=== PATIENT | female | born 1970 | race African-American/Black ===

== ENCOUNTER 2016-08-21 18:04 | Inpatient (IN) | payer OTHER ==
[~2016-08-21] VITALS: Ht 171.4 cm; Wt 71.9 kg
[~2016-08-21 18:04] MED LIST: DOXY100C2 PO; DOXY100T PO; HYDR200T5 PO
[2016-08-21 20:10] VITALS: BP 139/86
[2016-08-21] MEDS ORDERED: MORPHINE SULFATE 2 MG/ML DISP.SYRIN. IV PRN (20:45)
[2016-08-21] MEDS ORDERED: MAG HYDROX/ALUMINUM HYD/SIMETH 30 ML ORAL.SUSP PO PRN (20:45)
[2016-08-21] MEDS ORDERED: LACTULOSE 20 GM/30 ML SOLUTION. PO PRN (20:45)
[2016-08-21] MEDS ORDERED: PROCHLORPERAZINE 25 MG SUPP.RECT. PR PRN (20:45)
[2016-08-21] MEDS ORDERED: IBUPROFEN 400 MG TABLET. PO PRN (20:45)
[2016-08-21] MEDS ORDERED: ONDANSETRON PF 4 MG/2 ML VIAL. IV PRN (20:45)
[2016-08-21] MEDS ORDERED: oxyCODONE IR 5 MG TABLET PO PRN (20:45)
[2016-08-21] MEDS ORDERED: BISACODYL 10 MG SUPP.RECT. PR PRN (20:45)
[2016-08-21] MEDS ORDERED: ACETAMINOPHEN 325 MG TABLET. PO PRN (20:45)
[2016-08-21] MEDS ORDERED: PROCHLORPERAZINE 10 MG/2 ML VIAL. IV PRN (20:45)
[2016-08-21] MEDS ORDERED: CALCIUM CARBONATE 500 MG TAB.CHEW PO PRN (20:45)
[2016-08-21] MEDS ORDERED: MAGNESIUM HYDROXIDE 2,400 MG/30 ML ORAL.SUSP. PO PRN (20:45)
[2016-08-21] MEDS: DOCUSATE SODIUM 100 MG CAPSULE. PO SCH (21:00)
--- NOTE | 2016-08-21 21:06 | PDOC1 ---
History and Physical Date of Admission Date of Admission DATE: 08/21/16 TIME: 20:56 Identification/Chief Complaint Chief Complaint SOA, leg swelling Problems: Source Source: Caregiver, Chart review, Patient History of Present Illness History of Present Illness 46 y.o AA female O 2 dependent 31/08 at 2 [facility], for ILD, lupus hx was on plaquenil for it not taking anymore (lupus has affected the lungs); known to our pulmo service, has noticed more SOA, needing to bump O2 to 3 L NC, leg swelling,. pitting edema, no CP, orthopnea or PND. HAs noticed more phlegm in amt, though no signif change in color. Never smoker Went to ER [facility], CXR shows pulmo congestion, elevated BNP. CHF new dx. No known CAD, no signif meds at home. Cards called from [facility], requested [facility]C transfer and pulmo on board,. Pt on the potty, good UO after 60mgs iV lasix x 1 at [place] BNP 2845, Trop 0.020 Past Medical History Pulmonary: Asthma, Bronchitis, Pneumonia Past Surgical History Past Surgical History: Other Family History Family History: Diabetes, Heart Disease, High Cholestrol, Hypertension Social History Smoke: No ALCOHOL: none Drugs: None Current Medications Current Medications Current Medications Ondansetron HCl (Zofran) 4 mg PRN Q6HRS PRN IV NAUSEA/VOMITING; Start 08/21/16 at 20:45 Prochlorperazine Edisylate (Compazine) 10 mg PRN Q6HRS PRN IV NAUSEA/VOMITING; Start 08/21/16 at 20:45 Prochlorperazine (Compazine) 25 mg PRN Q12HR PRN RI NAUSEA/VOMITING; Start at 20:45 Al Hydroxide/Mg Hydroxide (Mylanta Plus Xs) 30 ml PRN Q3HRS PRN PO HEARTBURN / GAS; Start 08/21/16 at 20:45 Calcium Carbonate/ Glycine (Tums) 500 mg PRN Q3HRS PRN PO UPSET STOMACH; Start 08/21/16 at 20:45 Oxycodone HCl (Roxicodone) 5 mg PRN Q3HRS PRN PO BREAKTHROUGH PAIN; Start 08/21 at 20:45 Morphine Sulfate 1 mg PRN Q1HR PRN IV PAIN; Start 08/21/16 at 20:45 Acetaminophen (Tylenol) 650 mg PRN Q6HRS PRN PO Headaches, Temp > 101.5F; Start 08/21/16 at 20:45 Ibuprofen (Motrin) 400 mg PRN Q6HRS PRN PO MILD PAIN; Start 08/21/16 at 20:45 Docusate Sodium (Colace) 100 mg BID PO ; Start 08/21/16 at 21:00 Magnesium Hydroxide (Milk Of Magnesia) 2,400 mg PRN Q12HR PRN PO CONSTIPATION; Start 08/21/16 at 20:45 Lactulose 20 gm PRN Q12HR PRN PO CONSTIPATION; Start 08/21/16 at 20:45 Bisacodyl (Dulcolax Supp) 10 mg PRN DAILY PRN RI CONSTIPATION; Start 08/21/16 at 20:45 Enoxaparin Sodium (Lovenox 40mg Syringe) 40 mg Q24H SQ ; Start 08/21/16 at 21:00 Albuterol/ Ipratropium (Duoneb) 3 ml RTQID NEB ; Start 08/21/16 at 21:00 Hydroxychloroquine Sulfate (Plaquenil) 200 mg BID PO ; Start 08/21/16 at 21:00 Active Scripts Active Hydroxychloroquine Sulfate 200 Mg Tablet 200 Mg PO BID 30 Days Doxycycline Hyclate 100 Mg Tablet 100 Mg PO BID Doxycycline Hyclate 100 Mg Capsule 1 Cap PO BID Allergies Allergies: Coded Allergies: No Known Drug Allergies (Unverified , 11/04/15) ROS General: No: Chills, Night Sweats, Fatigue, Malaise, Appetite, Other PSYCHOLOGICAL ROS: No: Anxiety, Behavioral Disorder, Concentration difficultie , Decreased libido, Depression, Disorientation, Hallucinations, Hostility, Irritablity, Memory difficulties, Mood Swings, Obsessive thoughts, Physical abuse, Sexual abuse, Sleep disturbances, Suicidal ideation, Other Eyes: No Blurry vision, No Decreased vision, No Double vision, No Dry eyes, No Excessive tearing, No Eye Pain, No Itchy Eyes, No Loss of vision, No Photophobia , No Scotomata, No Uses contacts, No Uses glasses, No Other HEENT: No: Heacaches, Visual Changes, Hearing change, Nasal congestion, Nasal discharge, Oral lesions, Sinus pain, Sore Throat, Epistaxis, Sneezing, Snoring, Tinnitus, Vertigo, Vocal changes, Other ALLERGY AND IMMUNOLOGY: No: Hives, Insect Bite Sensitivity, Itchy/Watery Eyes, Nasal Congestion, Post Nasal Drip, Seasonal Allergies, Other Hematological and Lymphatic: No: Bleeding Problems, Blood Clots, Blood Transfusions, Brusing, Night Sweats, Pallor, Swollen Lymph Nodes, Other ENDOCRINE: No: Breast Changes, Galactorrhea, Hair Pattern Changes, Hot Flashes , Malaise/lethargy, Mood Swings, Palpitations, Polydipsia/polyuria, Skin Changes , Temperature Intolerance, Unexpected Weight Changes, Other Breast: No New/Changing Breast Lumps, No Nipple changes, No Nipple discharge, No Other Respiratory: YES: Shortness of breath, SOB with excertion, Sputum Changes, Other (more sputum amt but no color) Cardiovascular: No Chest Pain, No Palpitations, No Orthopnea, No Paroxysmal Noc. Dyspnea, No Edema, No Lt Headedness, No Other Gastrointestinal: No Nausea, No Vomiting, No Abdominal Pain, No Diarrhea, No Constipation, No Melena, No Hematochezia, No Other Genitourinary: No Dysuria, No Frequency, No Incontinence, No Hematuria, No Retention, No Discharge, No Urgency, No Pain, No Flank Pain, No Other, No , No , No , No , No , No , No Musculoskeletal: No Gait Disturbance, No Joint Pain, No Joint Stiffness, No Joint Swelling, No Muscle Pain, No Muscular Weakness, No Pain In:, No Swelling In:, No Other Neurological: No Behavorial Changes, No Bowel/Bladder ControlChng, No Confusion , No Dizziness, No Gait Disturbance, No Headaches, No Impaired Coord/balance, No Memory Loss, No Numbness/Tingling, No Seizures, No Speech Problems, No Tremors, No Visual Changes, No Weakness, No Other Skin: No Dry Skin, No Eczema, No Hair Changes, No Lumps, No Mole Changes, No Mottling, No Nail Changes, No Pruritus, No Rash, No Skin Lesion Changes, No Other, No Acne Physical Exam General: Alert, Oriented X3, Cooperative, No acute distress HEENT: Atraumatic, PERRLA Lungs: Normal air movement, Other (dec BS bases, no wheezes, dullness to percussion bases aaliyah) Heart: S1S2, RRR, no thrills, no rubs, no gallops, no murmurs Cardiovascular: S1, S2 Breasts: Normal, Rt breast nml w/o mass, Lt breast nml w/o mass, Nipples normal Abdomen: Normal bowel sounds, Soft, No tenderness, No hepatosplenomegaly, No masses Rectal Exam: not examined PELVIC: Nml ext genitalia Extremities: No clubbing, No cyanosis, Normal pulses, No tenderness/swelling ( plus 3 pitting edema bilateral LE), Other Skin: No rashes, No breakdown, No significant lesion Neuro: Normal gait, Normal speech, Strength at 5/5 X4 ext, Normal tone, Sensation intact, Cranial nerves 3-12 NL, Reflexes 2+ Psych/Mental Status: Mental status NL, Mood NL Vitals Vitals Vital Signs Date Time Temp Pulse Resp B/P (MAP) Pulse Ox O2 Delivery O2 Flow Rate FiO2 08/21/16 20:10 98.2 98 20 139/86 (103) 96 Nasal Cannula 2.0 98.2 VTE Prophylaxis Ordered VTE Prophylaxis Devices: Yes VTE Pharmacological Prophylaxi: Yes Assessment/Plan Assessment/Plan 1. New onset CHF possibly NYHA class II 2. Bilateral LE edema 3. Hx ILD, hypoxic respi failure acute on chronic, O2 dependent 4. Hx lupus lungs - off plaquenil 5. Trop leak 0.020 PLAN: Admit CVC CARds consult Diurese Demetrio lytodd as we diurese Interval CXR wednesday Likely will need echo PT/OT Pulmo consult per cards request O2 support Supportive meds Seen at 248, discussed plan of care with pt, all q's answered to her content MADDIE RESENDEZ MD Aug 21, 2016 21:06
[2016-08-21] MEDS: HYDROXYCHLOROQUINE 200 MG TABLET PO SCH (21:28)
[2016-08-21] MEDS: ENOXAPARIN 40 MG/0.4 ML SYRINGE. SQ SCH (21:29)
[2016-08-21] MEDS: IPRATRPIUM/ALBUTEROL 0.5/2.5MG 3 ML NEBU. NEB SCH (21:41)
[2016-08-21 23:50] VITALS: BP 85/56
[2016-08-22 03:31] VITALS: BP 85/59
--- NOTE | 2016-08-22 03:49 | ACF ---
Admission Forms Criteria HEART FAILURE (Place 'X' for any and all applicable criteria): Admission to inpatient status for two midnights or more is indicated by ANY ONE of the following(1)(2)(3)(4) [ ]I. Hemodynamic instability [ ]II. Severe electrolyte abnormalities requiring inpatient care(9) [ ]III. Cardiac arrhythmias of immediate concern Anasarca [ ]IV. Precipitating cause for acute decompensation (eg, pneumonia, pulmonary embolism)[ ]V. [ ]V. Acute cardiac ischemia causing or associated with failure (Also use Angina or Myocardial Infarction as appropriate) [ ]. Pulmonary edema that is very severe (eg, mechanical ventilation needed, imminent or likely, need for 100% oxygen to keep oxygen saturation above 90%) [ ]VII. Massive skin edema (anasarca) with complications (eg tissue breakdown with infection, inability to void due to edema) [A] [X]VIII. Inpatient admission required rather than observation care (See Heart Failure: Observation Care as appropriate) because of 1 or more of the following: [ ]a) Pulmonary edema that is severe or worsening as indicated by ALL of the following : [ ]1) New need for oxygen therapy to keep oxygen saturation above 90% (or increased FiO2 need from baseline) [ ]2) Has not improved sufficiently with emergency department or observation care IV diuretics or other heart failure treatments[C] [ ]b) Altered mental status that is severe or persistent [ ]c) Increased creatinine (new on laboratory test) with reduction of more than 50% in estimated glomerular filtration rate from baseline. [ ]d) Progressively (ongoing) rising creatinine (known from past laboratory test) with reduction of more than 25% in estimated glomerular filtration rate from baseline [ ]e) Acute renal insufficiency (progressively (ongoing) rising creatinine (known from past laboratory test) with reduction of more than 25% in estimated glomerular filtration rate from baseline [ ]f) Acute renal failure [ ]g) Acute peripheral ischemia (e.g., examination shows pulseless, cool, mottled, or cyanotic extremity) [X]h) Oyxgen administration or respiratory treatments have been needed for over 24 hours that are performable only in acute inpatient setting [ ]i) Pulmonary artery catheter monitoring [ ]j) Other condition, treatment or monitoring requiring inpatient admission Extended stay beyond goal length of stay may be needed for(1)(3)(21)(25): [ ]a) Cardiac ischemia, confirmed or suspected as precipitant [ ]b) Cardiogenic shock [ ]c) Acute renal failure [ ]d) Stage IV chronic kidney disease (estimated glomerular filteration rate of less than 30 ML/min/1.73m2 (0.50 mL/sec/1.73m2), and not previously on chronic dialysis [ ]e) Respiratory failure (eg, need for noninvasive or invasive mechanical ventilation) (23) [ ]f) Concomitant pneumonia or significant electrolyte abnormality (eg, severe hyponatremia) [ ]g) Newly diagnosed (new onset) atrial fibrillation The original [facility] content created by [employer] has been revised. The portions of the content which have been revised are identified through the use of italic text, and [facility] has neither reviewed nor approved the modified material. All other unmodified content is copyright [facility]. Please see references footnoted in the original [facility] edition 2014 Admission Criteria Met?: Yes ROXANN ORTIZ Aug 22, 2016 03:49
[2016-08-22 03:58] LABS: BASO # 0.1 x10^3/uL (0.0-0.2); BASO % 1 % (0-3); EOS % 2 % (0-3); HEMATOCRIT 33.5 % (36.0-47.0); HEMOGLOBIN 10.3 g/dL (12.0-15.5); LYMPH # 1.1 x10^3/uL (1.0-4.8); LYMPH % 16 % (24-48); MEAN CORPUSCULAR HEMOGLOBIN 23 pg (25-35); MEAN CORPUSCULAR HGB CONC 31 g/dL (31-37); MEAN CORPUSCULAR VOLUME 74 fL (79-100); MONO % 11 % (0-9); NEUT % 70 % (31-73); PLATELET COUNT 208 x10^3/uL (140-400); RED BLOOD COUNT 4.51 x10^6/uL (3.50-5.40); RED CELL DISTRIBUTION WIDTH 19.2 % (11.5-14.5); WHITE BLOOD COUNT 6.8 x10^3/uL (4.0-11.0)
[2016-08-22 04:03] LABS: INR 1.3 (0.8-1.1); PROTHROMBIN TIME PATIENT 15.6 SEC (11.7-14.0)
[2016-08-22 04:13] LABS: CALCIUM 8.4 mg/dL (8.5-10.1); CREATININE 0.5 mg/dL (0.6-1.0); GFR 162.2
[2016-08-22 04:19] LABS: PHOSPHORUS 4.3 mg/dL (2.6-4.7)
[2016-08-22 06:04] LABS: ANISOCYTOSIS SLIGHT; HYPOCHROMIA MOD; PLT ESTIMATE ADEQUATE (ADEQUATE)
[2016-08-22 06:05] LABS: MICROCYTOSIS SLIGHT
[2016-08-22 07:00] VITALS: BP 108/70
[2016-08-22] MEDS: IPRATRPIUM/ALBUTEROL 0.5/2.5MG 3 ML NEBU. NEB SCH ×4 (07:40→20:12)
[2016-08-22] MEDS ORDERED: FUROSEMIDE 40 MG/4 ML VIAL. IVP SCH (09:00)
[2016-08-22] MEDS: DOCUSATE SODIUM 100 MG CAPSULE. PO SCH ×2 (09:00→21:00)
[2016-08-22] MEDS: HYDROXYCHLOROQUINE 200 MG TABLET PO SCH ×2 (09:09→21:24)
--- NOTE | 2016-08-22 10:27 | PDOC2 ---
CARDIAC CONSULT DATE OF CONSULT Date of Consult DATE: 08/22/16 TIME: 10:18 REASON FOR CONSULT Reason for Consult: new CHF REFERRING PHYSICIAN Referring Physician: Kirk SOURCE Source: Chart review, Patient HISTORY OF PRESENT ILLNESS HISTORY OF PRESENT ILLNESS This is a pleasant 46 yo female admitted for complains of increasing leg swelling and SOA. Reports leg swelling to both legs increasing in the last 2 weeks. Her SOA starting get more progressive in the last week and in the last 2 -3 days she has been even more SOA and verbalized that she has increased her O2 supplementation need. Denies any CP, palpitations, nausea or vomiting. She has some foot pain but denies any leg pain. She drinks about 2 L of fluids daily, no routine NSAID use, and she watches her salt intake. Denies any CAD, VTE, falls, or any recent injury. Denies any bleeding or clotting hx. Reports of SLE and chronic lung disease. The only medications she takes is plaquenil and inhalers. PAST MEDICAL HISTORY Cardiovascular: Other (Raynauds) Pulmonary: Asthma, Other (bronchiectasis; O2 supplement use) CENTRAL NERVOUS SYSTEM: Other (No pertinent history) GI: No pertinent hx Heme/Onc: Anemia NOS Hepatobiliary: No pertinent hx Psych: No pertinent hx Musculoskeletal: Osteoarthritis, Other (leg edema) Rheumatologic: Other (SLE) Infectious disease: No pertinent hx ENT: No pertinent hx Renal/: No pertinent hx Endocrine: No pertinent hx Dermatology: No pertinent hx PAST SURGICAL HISTORY Past Surgical History: No pertinent history FAMILY HISTORY Family History noncontributory to CV SOCIAL HISTORY Smoke: No ALCOHOL: none Drugs: None Lives: with Family CURRENT MEDICATIONS CURRENT MEDICATIONS Current Medications Medications (Trade) Dose Ordered Sig/Chepe Route PRN Reason Start Time Stop Time Status Last Admin Dose Admin Enoxaparin Sodium (Lovenox 40mg Syringe) 40 mg Q24H SQ 08/21/16 21:00 08/21/16 21:29 Albuterol/ Ipratropium (Duoneb) 3 ml RTQID NEB 08/21/16 21:00 08/22/16 07:40 Hydroxychloroquine Sulfate (Plaquenil) 200 mg BID PO 08/21/16 21:00 08/22/16 09:09 Furosemide (Lasix) 40 mg DAILY IVP 08/22/16 09:00 08/22/16 09:09 ALLERGIES ALLERGIES: Coded Allergies: No Known Drug Allergies (Unverified , 11/04/15) ROS Review of System 14 point ROS evaluated with pertinent positives noted per HPI PHYSICAL EXAM General: Alert, Oriented X3, Cooperative, No acute distress HEENT: Atraumatic, Mucous membr. moist/pink Lungs: Other (basilar crackles) Heart: Regular rate (SR), Normal S1, Normal S2, Other (S4; systolic murmur loudest at [place] border) Abdomen: Soft, No tenderness Extremities: No cyanosis, Other (3+ bilateral LE pitting edema) Skin: No breakdown, No significant lesion Neuro: Normal speech, Sensation intact Psych/Mental Status: Mood NL MUSCULOSKELETAL: Osteoarthritic changes both hands VITALS VITALS Vital Signs Date Time Temp Pulse Resp B/P (MAP) Pulse Ox O2 Delivery O2 Flow Rate FiO2 08/22/16 07:41 95 Nasal Cannula 2.0 08/22/16 07:00 98.3 92 20 108/70 (83) 98.3 LABS Lab: Laboratory Tests Test 08/22/16 03:05 08/22/16 08:45 White Blood Count 6.8 x10^3/uL (4.0-11.0) Red Blood Count 4.51 x10^6/uL (3.50-5.40) Hemoglobin 10.3 g/dL (12.0-15.5) Hematocrit 33.5 % (36.0-47.0) Mean Corpuscular Volume 74 fL (79-100) Mean Corpuscular Hemoglobin 23 pg (25-35) Mean Corpuscular Hemoglobin Concent 31 g/dL (31-37) Red Cell Distribution Width 19.2 % (11.5-14.5) Platelet Count 208 x10^3/uL (140-400) Neutrophils (%) (Auto) 70 % (31-73) Lymphocytes (%) (Auto) 16 % (24-48) Monocytes (%) (Auto) 11 % (0-9) Eosinophils (%) (Auto) 2 % (0-3) Basophils (%) (Auto) 1 % (0-3) Neutrophils # (Auto) 4.7 x10^3uL (1.8-7.7) Lymphocytes # (Auto) 1.1 x10^3/uL (1.0-4.8) Monocytes # (Auto) 0.8 x10^3/uL (0.0-1.1) Eosinophils # (Auto) 0.1 x10^3/uL (0.0-0.7) Basophils # (Auto) 0.1 x10^3/uL (0.0-0.2) Platelet Estimate Adequate (ADEQUATE) Hypochromasia Mod Anisocytosis Slight Microcytosis Slight Prothrombin Time 15.6 SEC (11.7-14.0) Prothromb Time International Ratio 1.3 (0.8-1.1) Sodium Level 143 mmol/L (136-145) Potassium Level 4.0 mmol/L (3.5-5.1) Chloride Level 103 mmol/L (98-107) Carbon Dioxide Level 40 mmol/L (21-32) Anion Gap 0 (6-14) Blood Urea Nitrogen 10 mg/dL (7-20) Creatinine 0.5 mg/dL (0.6-1.0) Estimated GFR (Cockcroft-Gault) 162.2 Glucose Level 100 mg/dL (70-99) Calcium Level 8.4 mg/dL (8.5-10.1) Phosphorus Level 4.3 mg/dL (2.6-4.7) Magnesium Level 2.0 mg/dL (1.8-2.4) Troponin I Quantitative 0.056 ng/mL (0.000-0.055) 0.029 ng/mL (0.000-0.055) Thyroid Stimulating Hormone (TSH) 3.086 uIU/mL (0.358-3.74) ASSESSMENT/PLAN ASSESSMENT/PLAN 1. Acute CHF with likely diastolic dysfunction: COr pulmonale? notable for hypercoagulable state. EKG SR, RVH/PADMA, S1Q3T3. PE workup? defer to Pulmonary. 2. COPD/bronchiectasis: likely exacerbation. chronic O2 use. Follow by outpt pulmonary 3. SLE/Raynauds: followed by outpt model technician 4. Valvular insufficiency: loud murmur Recommendations 1. pro NT BNP, lipid panel, Venoud LE doppler/TTE today 2. 3 L of UOP today. Will hold lasix for now. Await TTE 3. Pulmonary consult pending. Problems: NICOLÁS SILVER APRN Aug 22, 2016 10:27
[2016-08-22 10:53] LABS: CHOLESTEROL/HDL RATIO 3.3
[2016-08-22 11:00] VITALS: BP 113/80
--- NOTE | 2016-08-22 12:51 | PDOC2 ---
CONSULT Date of Consult Date of Consult DATE: 08/22/16 TIME: 12:40 Reason for Consult Reason for Consult: abnormal CXR Referring Physician Referring Physician: Dr Walsh Identification/Chief Complaint Chief Complaint dyspnea Problems: History of Present Illness Reason for Visit: This is a pleasant 46 yo female admitted for complains of increasing leg swelling and SOA. Reports leg swelling to both legs increasing in the last 2 weeks, abdominal swelling as well. Her SOA starting get more progressive in the last week and in the last 2-3 days she has been even more SOA and verbalized that she has increased her O2 supplementation need. Denies any CP, palpitations , nausea or vomiting. She has some foot pain but denies any leg pain. She drinks about 2 L of fluids daily, no routine NSAID use, and she watches her salt intake. Denies any CAD, VTE, falls, or any recent injury. Denies any bleeding or clotting hx. Reports of SLE and chronic lung disease. The only medications she takes is plaquenil and inhalers. Patient was diagnosed with lupus in 2007. She has taken Vicodin in the past. Says that she developed pneumonia in 2011 and her lung condition is started since that time. She has no history of tobacco use. She has no history of DVT or pulmonary embolism. She was seen in emergency room and a chest x-ray shows diffuse bilateral interstitial infiltrates. There was also Donavan Ramon. I have reviewed her CT chest from last year. She had evidence of ground glass and interstitial infiltrates along with nodular infiltrates. These findings were not typical of idiopathic pulmonary fibrosis. They consultation is requested for further evaluation. Past Medical History Cardiovascular: No pertinent hx, Other (Raynauds) Pulmonary: Asthma, Other (ILD) CENTRAL NERVOUS SYSTEM: Other (No pertinent history) GI: No pertinent hx Heme/Onc: Anemia NOS Hepatobiliary: No pertinent hx Psych: No pertinent hx Musculoskeletal: Osteoarthritis, Other (leg edema) Rheumatologic: Other (SLE) Infectious disease: No pertinent hx ENT: No pertinent hx Renal/: No pertinent hx Endocrine: No pertinent hx Dermatology: No pertinent hx Past Surgical History Past Surgical History: No pertinent history Family History Family History: Diabetes, Heart Disease, High Cholestrol, Hypertension Social History No ALCOHOL: none Drugs: None Lives: with Family Current Medications Current Medications Current Medications Ondansetron HCl (Zofran) 4 mg PRN Q6HRS PRN IV NAUSEA/VOMITING 1ST CHOICE; Start 08/21/16 at 20:45 Prochlorperazine Edisylate (Compazine) 10 mg PRN Q6HRS PRN IV NAUSEA/VOMITING 2ND CHOIC; Start 08/21/16 at 20:45 Prochlorperazine (Compazine) 25 mg PRN Q12HR PRN [place] NAUSEA/VOMITING; Start at 20:45 Al Hydroxide/Mg Hydroxide (Mylanta Plus Xs) 30 ml PRN Q3HRS PRN PO HEARTBURN / GAS; Start 08/21/16 at 20:45 Calcium Carbonate/ Glycine (Tums) 500 mg PRN Q3HRS PRN PO UPSET STOMACH; Start 08/21/16 at 20:45 Oxycodone HCl (Roxicodone) 5 mg PRN Q3HRS PRN PO BREAKTHROUGH PAIN; Start 08/21 at 20:45 Morphine Sulfate 1 mg PRN Q1HR PRN IV PAIN; Start 08/21/16 at 20:45 Acetaminophen (Tylenol) 650 mg PRN Q6HRS PRN PO Headaches, Temp > 101.5F; Start 08/21/16 at 20:45 Ibuprofen (Motrin) 400 mg PRN Q6HRS PRN PO MILD PAIN; Start 08/21/16 at 20:45; Stop 08/22/16 at 10:51; Status DC Docusate Sodium (Colace) 100 mg BID PO ; Start 08/21/16 at 21:00 Magnesium Hydroxide (Milk Of Magnesia) 2,400 mg PRN Q12HR PRN PO CONSTIPATION; Start 08/21/16 at 20:45 Lactulose 20 gm PRN Q12HR PRN PO CONSTIPATION; Start 08/21/16 at 20:45 Bisacodyl (Dulcolax Supp) 10 mg PRN DAILY PRN [place] CONSTIPATION; Start 08/21/16 at 20:45 Enoxaparin Sodium (Lovenox 40mg Syringe) 40 mg Q24H SQ Last administered on t 21:29; Start 08/21/16 at 21:00 Albuterol/ Ipratropium (Duoneb) 3 ml RTQID NEB Last administered on 08/22/16 11:37; Start 08/21/16 at 21:00 Hydroxychloroquine Sulfate (Plaquenil) 200 mg BID PO Last administered on 09:09; Start 08/21/16 at 21:00 Furosemide (Lasix) 40 mg DAILY IVP Last administered on 08/22/16 09:09; Start 08/22/16 at 09:00; Stop 08/22/16 at 11:56; Status DC Active Scripts Active Hydroxychloroquine Sulfate 200 Mg Tablet 200 Mg PO BID 30 Days Doxycycline Hyclate 100 Mg Tablet 100 Mg PO BID Doxycycline Hyclate 100 Mg Capsule 1 Cap PO BID Allergies Allergies: Coded Allergies: No Known Drug Allergies (Unverified , 11/04/15) ROS Review of System as discussed in my history of present illness otherwise noncontributory. Physical Exam General: Alert, No acute distress HEENT: Atraumatic Lungs: Other (crackles bases) Heart: Normal S1 Abdomen: Normal bowel sounds Extremities: No clubbing, Other (2+ edema) Skin: No rashes Neuro: Normal gait Psych/Mental Status: Mental status NL Vitals VITALS Vital Signs Date Time Temp Pulse Resp B/P (MAP) Pulse Ox O2 Delivery O2 Flow Rate FiO2 08/22/16 11:38 95 Nasal Cannula 2.0 08/22/16 11:00 97.4 94 18 113/80 (91) 97.4 Labs Labs Laboratory Tests Test 08/22/16 03:05 08/22/16 08:45 White Blood Count 6.8 x10^3/uL (4.0-11.0) Red Blood Count 4.51 x10^6/uL (3.50-5.40) Hemoglobin 10.3 g/dL (12.0-15.5) Hematocrit 33.5 % (36.0-47.0) Mean Corpuscular Volume 74 fL (79-100) Mean Corpuscular Hemoglobin 23 pg (25-35) Mean Corpuscular Hemoglobin Concent 31 g/dL (31-37) Red Cell Distribution Width 19.2 % (11.5-14.5) Platelet Count 208 x10^3/uL (140-400) Neutrophils (%) (Auto) 70 % (31-73) Lymphocytes (%) (Auto) 16 % (24-48) Monocytes (%) (Auto) 11 % (0-9) Eosinophils (%) (Auto) 2 % (0-3) Basophils (%) (Auto) 1 % (0-3) Neutrophils # (Auto) 4.7 x10^3uL (1.8-7.7) Lymphocytes # (Auto) 1.1 x10^3/uL (1.0-4.8) Monocytes # (Auto) 0.8 x10^3/uL (0.0-1.1) Eosinophils # (Auto) 0.1 x10^3/uL (0.0-0.7) Basophils # (Auto) 0.1 x10^3/uL (0.0-0.2) Platelet Estimate Adequate (ADEQUATE) Hypochromasia Mod Anisocytosis Slight Microcytosis Slight Prothrombin Time 15.6 SEC (11.7-14.0) Prothromb Time International Ratio 1.3 (0.8-1.1) Sodium Level 143 mmol/L (136-145) Potassium Level 4.0 mmol/L (3.5-5.1) Chloride Level 103 mmol/L (98-107) Carbon Dioxide Level 40 mmol/L (21-32) Anion Gap 0 (6-14) Blood Urea Nitrogen 10 mg/dL (7-20) Creatinine 0.5 mg/dL (0.6-1.0) Estimated GFR (Cockcroft-Gault) 162.2 Glucose Level 100 mg/dL (70-99) Calcium Level 8.4 mg/dL (8.5-10.1) Phosphorus Level 4.3 mg/dL (2.6-4.7) Magnesium Level 2.0 mg/dL (1.8-2.4) Troponin I Quantitative 0.056 ng/mL (0.000-0.055) 0.029 ng/mL (0.000-0.055) Triglycerides Level 58 mg/dL (0-150) Cholesterol Level 95 mg/dL (0-200) LDL Cholesterol, Calculated 54 mg/dL (0-100) VLDL Cholesterol, Calculated 12 mg/dL (0-40) Non-HDL Cholesterol Calculated 66 mg/dL (0-129) HDL Cholesterol 29 mg/dL (40-60) Cholesterol/HDL Ratio 3.3 Thyroid Stimulating Hormone (TSH) 3.086 uIU/mL (0.358-3.74) Creatine Kinase 298 U/L (26-192) PI-Iod-L-Type Natriuretic Peptide 3848 pg/mL (0-124) Laboratory Tests Test 08/22/16 03:05 08/22/16 08:45 White Blood Count 6.8 x10^3/uL (4.0-11.0) Red Blood Count 4.51 x10^6/uL (3.50-5.40) Hemoglobin 10.3 g/dL (12.0-15.5) Hematocrit 33.5 % (36.0-47.0) Mean Corpuscular Volume 74 fL (79-100) Mean Corpuscular Hemoglobin 23 pg (25-35) Mean Corpuscular Hemoglobin Concent 31 g/dL (31-37) Red Cell Distribution Width 19.2 % (11.5-14.5) Platelet Count 208 x10^3/uL (140-400) Neutrophils (%) (Auto) 70 % (31-73) Lymphocytes (%) (Auto) 16 % (24-48) Monocytes (%) (Auto) 11 % (0-9) Eosinophils (%) (Auto) 2 % (0-3) Basophils (%) (Auto) 1 % (0-3) Neutrophils # (Auto) 4.7 x10^3uL (1.8-7.7) Lymphocytes # (Auto) 1.1 x10^3/uL (1.0-4.8) Monocytes # (Auto) 0.8 x10^3/uL (0.0-1.1) Eosinophils # (Auto) 0.1 x10^3/uL (0.0-0.7) Basophils # (Auto) 0.1 x10^3/uL (0.0-0.2) Platelet Estimate Adequate (ADEQUATE) Hypochromasia Mod Anisocytosis Slight Microcytosis Slight Prothrombin Time 15.6 SEC (11.7-14.0) Prothromb Time International Ratio 1.3 (0.8-1.1) Sodium Level 143 mmol/L (136-145) Potassium Level 4.0 mmol/L (3.5-5.1) Chloride Level 103 mmol/L (98-107) Carbon Dioxide Level 40 mmol/L (21-32) Anion Gap 0 (6-14) Blood Urea Nitrogen 10 mg/dL (7-20) Creatinine 0.5 mg/dL (0.6-1.0) Estimated GFR (Cockcroft-Gault) 162.2 Glucose Level 100 mg/dL (70-99) Calcium Level 8.4 mg/dL (8.5-10.1) Phosphorus Level 4.3 mg/dL (2.6-4.7) Magnesium Level 2.0 mg/dL (1.8-2.4) Troponin I Quantitative 0.056 ng/mL (0.000-0.055) 0.029 ng/mL (0.000-0.055) Triglycerides Level 58 mg/dL (0-150) Cholesterol Level 95 mg/dL (0-200) LDL Cholesterol, Calculated 54 mg/dL (0-100) VLDL Cholesterol, Calculated 12 mg/dL (0-40) Non-HDL Cholesterol Calculated 66 mg/dL (0-129) HDL Cholesterol 29 mg/dL (40-60) Cholesterol/HDL Ratio 3.3 Thyroid Stimulating Hormone (TSH) 3.086 uIU/mL (0.358-3.74) Creatine Kinase 298 U/L (26-192) OO-Sqo-I-Type Natriuretic Peptide 3848 pg/mL (0-124) Images Images Reviewed and is consistent with bilateral interstitial infiltrates. Assessment/Plan Assessment/Plan Impression 1. Progressive dyspnea and hypoxic respiratory failure in a patient who has a diagnosis of interstitial lung disease now comes in with severe leg edema , abdominal wall edema and bilateral interstitial infiltrates. Suspect that we may be dealing with progression of interstitial lung disease and acute right heart failure. 2. Abnormal chest x-ray with bilateral interstitial infiltrates. she had a CAT scan last year which showed bilateral interstitial and ground-glass infiltrates and also nodular infiltrates. This could be related to lupus interstitial lung disease however the possibility of sarcoidosis cannot be ruled out. The CT chest findings is not typical of idiopathic type pulmonary fibrosis. 3. Clinically less likely left heart failure but will await echo findings. 4. Bilateral lower extremity edema suspect related to acute right heart failure. Her lower extremity dopplers have been ordered and preliminary results do not show any significant DVT. 5. No significant history of tobacco use. Recommendations 1. We'll obtain noncontrast CT chest and compare with previous CAT scan to assess for any progression of interstitial lung disease. 2. If there are any significant ground-glass infiltrates then these may predict response to steroids and we may consider an empiric trial of oral steroids 3. Hold off further diuresis until CAT scan is available 4. PFTs as an outpatient 5. Obtain report of lower extremity venous Dopplers. 6. Obtain echocardiogram to assess for left ventricular function as well as to rule out diastolic dysfunction and assess for pulmonary hypertension. 7. Status d/w with cardiology and nurse. BRYAN HALL MD Aug 22, 2016 12:51
--- NOTE | 2016-08-22 14:25 | PDOC ---
PROGRESS NOTES Chief Complaint Chief Complaint 1. dyspnea, acute on chronic hypoxic resp failure 2/2 acute likey diastolic CHF and chronic ILD 2. Bilateral LE edema with chf likely 3. Hx ILD, hypoxic respi failure acute on chronic, O2 dependent 4. Hx lupus lungs - off plaquenil 5. Trop leak 0.020 PLAN: fu with card and pul echo, leg US, chest CT pending hold lasix for now duoneb cont plaquinil dvt ppx History of Present Illness History of Present Illness sob and bl leg edema slightly better home o2 2l Vitals Vitals Vital Signs Date Time Temp Pulse Resp B/P (MAP) Pulse Ox O2 Delivery O2 Flow Rate FiO2 08/22/16 11:38 95 Nasal Cannula 2.0 08/22/16 11:00 97.4 94 18 113/80 (91) 97.4 Physical Exam General: Alert, No acute distress Heart: Normal S1 Lungs: Crackles Abdomen: Normal bowel sounds Extremities: No clubbing, Other (2+ edema) Skin: No rashes Labs LABS Laboratory Tests Test 08/22/16 03:05 08/22/16 08:45 White Blood Count 6.8 x10^3/uL (4.0-11.0) Red Blood Count 4.51 x10^6/uL (3.50-5.40) Hemoglobin 10.3 g/dL (12.0-15.5) Hematocrit 33.5 % (36.0-47.0) Mean Corpuscular Volume 74 fL (79-100) Mean Corpuscular Hemoglobin 23 pg (25-35) Mean Corpuscular Hemoglobin Concent 31 g/dL (31-37) Red Cell Distribution Width 19.2 % (11.5-14.5) Platelet Count 208 x10^3/uL (140-400) Neutrophils (%) (Auto) 70 % (31-73) Lymphocytes (%) (Auto) 16 % (24-48) Monocytes (%) (Auto) 11 % (0-9) Eosinophils (%) (Auto) 2 % (0-3) Basophils (%) (Auto) 1 % (0-3) Neutrophils # (Auto) 4.7 x10^3uL (1.8-7.7) Lymphocytes # (Auto) 1.1 x10^3/uL (1.0-4.8) Monocytes # (Auto) 0.8 x10^3/uL (0.0-1.1) Eosinophils # (Auto) 0.1 x10^3/uL (0.0-0.7) Basophils # (Auto) 0.1 x10^3/uL (0.0-0.2) Platelet Estimate Adequate (ADEQUATE) Hypochromasia Mod Anisocytosis Slight Microcytosis Slight Prothrombin Time 15.6 SEC (11.7-14.0) Prothromb Time International Ratio 1.3 (0.8-1.1) Sodium Level 143 mmol/L (136-145) Potassium Level 4.0 mmol/L (3.5-5.1) Chloride Level 103 mmol/L (98-107) Carbon Dioxide Level 40 mmol/L (21-32) Anion Gap 0 (6-14) Blood Urea Nitrogen 10 mg/dL (7-20) Creatinine 0.5 mg/dL (0.6-1.0) Estimated GFR (Cockcroft-Gault) 162.2 Glucose Level 100 mg/dL (70-99) Calcium Level 8.4 mg/dL (8.5-10.1) Phosphorus Level 4.3 mg/dL (2.6-4.7) Magnesium Level 2.0 mg/dL (1.8-2.4) Troponin I Quantitative 0.056 ng/mL (0.000-0.055) 0.029 ng/mL (0.000-0.055) Triglycerides Level 58 mg/dL (0-150) Cholesterol Level 95 mg/dL (0-200) LDL Cholesterol, Calculated 54 mg/dL (0-100) VLDL Cholesterol, Calculated 12 mg/dL (0-40) Non-HDL Cholesterol Calculated 66 mg/dL (0-129) HDL Cholesterol 29 mg/dL (40-60) Cholesterol/HDL Ratio 3.3 Thyroid Stimulating Hormone (TSH) 3.086 uIU/mL (0.358-3.74) Creatine Kinase 298 U/L (26-192) ZZ-Nma-D-Type Natriuretic Peptide 3848 pg/mL (0-124) Review of Systems Review of Systems no fever, chills, chest pain Comment Review of Relevant I have reviewed the following items ludmila (where applicable) has been applied. Labs Laboratory Tests Test 08/22/16 03:05 08/22/16 08:45 White Blood Count 6.8 x10^3/uL (4.0-11.0) Red Blood Count 4.51 x10^6/uL (3.50-5.40) Hemoglobin 10.3 g/dL (12.0-15.5) Hematocrit 33.5 % (36.0-47.0) Mean Corpuscular Volume 74 fL (79-100) Mean Corpuscular Hemoglobin 23 pg (25-35) Mean Corpuscular Hemoglobin Concent 31 g/dL (31-37) Red Cell Distribution Width 19.2 % (11.5-14.5) Platelet Count 208 x10^3/uL (140-400) Neutrophils (%) (Auto) 70 % (31-73) Lymphocytes (%) (Auto) 16 % (24-48) Monocytes (%) (Auto) 11 % (0-9) Eosinophils (%) (Auto) 2 % (0-3) Basophils (%) (Auto) 1 % (0-3) Neutrophils # (Auto) 4.7 x10^3uL (1.8-7.7) Lymphocytes # (Auto) 1.1 x10^3/uL (1.0-4.8) Monocytes # (Auto) 0.8 x10^3/uL (0.0-1.1) Eosinophils # (Auto) 0.1 x10^3/uL (0.0-0.7) Basophils # (Auto) 0.1 x10^3/uL (0.0-0.2) Platelet Estimate Adequate (ADEQUATE) Hypochromasia Mod Anisocytosis Slight Microcytosis Slight Prothrombin Time 15.6 SEC (11.7-14.0) Prothromb Time International Ratio 1.3 (0.8-1.1) Sodium Level 143 mmol/L (136-145) Potassium Level 4.0 mmol/L (3.5-5.1) Chloride Level 103 mmol/L (98-107) Carbon Dioxide Level 40 mmol/L (21-32) Anion Gap 0 (6-14) Blood Urea Nitrogen 10 mg/dL (7-20) Creatinine 0.5 mg/dL (0.6-1.0) Estimated GFR (Cockcroft-Gault) 162.2 Glucose Level 100 mg/dL (70-99) Calcium Level 8.4 mg/dL (8.5-10.1) Phosphorus Level 4.3 mg/dL (2.6-4.7) Magnesium Level 2.0 mg/dL (1.8-2.4) Troponin I Quantitative 0.056 ng/mL (0.000-0.055) 0.029 ng/mL (0.000-0.055) Triglycerides Level 58 mg/dL (0-150) Cholesterol Level 95 mg/dL (0-200) LDL Cholesterol, Calculated 54 mg/dL (0-100) VLDL Cholesterol, Calculated 12 mg/dL (0-40) Non-HDL Cholesterol Calculated 66 mg/dL (0-129) HDL Cholesterol 29 mg/dL (40-60) Cholesterol/HDL Ratio 3.3 Thyroid Stimulating Hormone (TSH) 3.086 uIU/mL (0.358-3.74) Creatine Kinase 298 U/L (26-192) PW-Xvo-U-Type Natriuretic Peptide 3848 pg/mL (0-124) Laboratory Tests Test 08/22/16 03:05 08/22/16 08:45 White Blood Count 6.8 x10^3/uL (4.0-11.0) Red Blood Count 4.51 x10^6/uL (3.50-5.40) Hemoglobin 10.3 g/dL (12.0-15.5) Hematocrit 33.5 % (36.0-47.0) Mean Corpuscular Volume 74 fL (79-100) Mean Corpuscular Hemoglobin 23 pg (25-35) Mean Corpuscular Hemoglobin Concent 31 g/dL (31-37) Red Cell Distribution Width 19.2 % (11.5-14.5) Platelet Count 208 x10^3/uL (140-400) Neutrophils (%) (Auto) 70 % (31-73) Lymphocytes (%) (Auto) 16 % (24-48) Monocytes (%) (Auto) 11 % (0-9) Eosinophils (%) (Auto) 2 % (0-3) Basophils (%) (Auto) 1 % (0-3) Neutrophils # (Auto) 4.7 x10^3uL (1.8-7.7) Lymphocytes # (Auto) 1.1 x10^3/uL (1.0-4.8) Monocytes # (Auto) 0.8 x10^3/uL (0.0-1.1) Eosinophils # (Auto) 0.1 x10^3/uL (0.0-0.7) Basophils # (Auto) 0.1 x10^3/uL (0.0-0.2) Platelet Estimate Adequate (ADEQUATE) Hypochromasia Mod Anisocytosis Slight Microcytosis Slight Prothrombin Time 15.6 SEC (11.7-14.0) Prothromb Time International Ratio 1.3 (0.8-1.1) Sodium Level 143 mmol/L (136-145) Potassium Level 4.0 mmol/L (3.5-5.1) Chloride Level 103 mmol/L (98-107) Carbon Dioxide Level 40 mmol/L (21-32) Anion Gap 0 (6-14) Blood Urea Nitrogen 10 mg/dL (7-20) Creatinine 0.5 mg/dL (0.6-1.0) Estimated GFR (Cockcroft-Gault) 162.2 Glucose Level 100 mg/dL (70-99) Calcium Level 8.4 mg/dL (8.5-10.1) Phosphorus Level 4.3 mg/dL (2.6-4.7) Magnesium Level 2.0 mg/dL (1.8-2.4) Troponin I Quantitative 0.056 ng/mL (0.000-0.055) 0.029 ng/mL (0.000-0.055) Triglycerides Level 58 mg/dL (0-150) Cholesterol Level 95 mg/dL (0-200) LDL Cholesterol, Calculated 54 mg/dL (0-100) VLDL Cholesterol, Calculated 12 mg/dL (0-40) Non-HDL Cholesterol Calculated 66 mg/dL (0-129) HDL Cholesterol 29 mg/dL (40-60) Cholesterol/HDL Ratio 3.3 Thyroid Stimulating Hormone (TSH) 3.086 uIU/mL (0.358-3.74) Creatine Kinase 298 U/L (26-192) RF-Xxg-R-Type Natriuretic Peptide 3848 pg/mL (0-124) Medications Current Medications Ondansetron HCl (Zofran) 4 mg PRN Q6HRS PRN IV NAUSEA/VOMITING 1ST CHOICE; Start 08/21/16 at 20:45 Prochlorperazine Edisylate (Compazine) 10 mg PRN Q6HRS PRN IV NAUSEA/VOMITING 2ND CHOIC; Start 08/21/16 at 20:45 Prochlorperazine (Compazine) 25 mg PRN Q12HR PRN [place] NAUSEA/VOMITING; Start at 20:45 Al Hydroxide/Mg Hydroxide (Mylanta Plus Xs) 30 ml PRN Q3HRS PRN PO HEARTBURN / GAS; Start 08/21/16 at 20:45 Calcium Carbonate/ Glycine (Tums) 500 mg PRN Q3HRS PRN PO UPSET STOMACH; Start 08/21/16 at 20:45 Oxycodone HCl (Roxicodone) 5 mg PRN Q3HRS PRN PO BREAKTHROUGH PAIN; Start 08/21 at 20:45 Morphine Sulfate 1 mg PRN Q1HR PRN IV PAIN; Start 08/21/16 at 20:45 Acetaminophen (Tylenol) 650 mg PRN Q6HRS PRN PO Headaches, Temp > 101.5F; Start 08/21/16 at 20:45 Ibuprofen (Motrin) 400 mg PRN Q6HRS PRN PO MILD PAIN; Start 08/21/16 at 20:45; Stop 08/22/16 at 10:51; Status DC Docusate Sodium (Colace) 100 mg BID PO ; Start 08/21/16 at 21:00 Magnesium Hydroxide (Milk Of Magnesia) 2,400 mg PRN Q12HR PRN PO CONSTIPATION; Start 08/21/16 at 20:45 Lactulose 20 gm PRN Q12HR PRN PO CONSTIPATION; Start 08/21/16 at 20:45 Bisacodyl (Dulcolax Supp) 10 mg PRN DAILY PRN [place] CONSTIPATION; Start 08/21/16 at 20:45 Enoxaparin Sodium (Lovenox 40mg Syringe) 40 mg Q24H SQ Last administered on 21:29; Start 08/21/16 at 21:00 Albuterol/ Ipratropium (Duoneb) 3 ml RTQID NEB Last administered on 08/22/16 11:37; Start 08/21/16 at 21:00 Hydroxychloroquine Sulfate (Plaquenil) 200 mg BID PO Last administered on 09:09; Start 08/21/16 at 21:00 Furosemide (Lasix) 40 mg DAILY IVP Last administered on 08/22/16t 09:09; Start 08/22/16 at 09:00; Stop 08/22/16 at 11:56; Status DC Active Scripts Active Hydroxychloroquine Sulfate 200 Mg Tablet 200 Mg PO BID 30 Days Doxycycline Hyclate 100 Mg Tablet 100 Mg PO BID Doxycycline Hyclate 100 Mg Capsule 1 Cap PO BID Vitals/I & O Vital Sign - Last 24 Hours 08/21/16 08/21/16 08/21/16 08/21/16 20:00 20:10 21:42 23:50 Temp 98.2 98.8 98.2 98.8 Pulse 98 110 Resp 20 20 B/P (MAP) 139/86 (103) 85/56 (66) Pulse Ox 96 96 95 O2 Delivery Nasal Cannula Nasal Cannula Nasal Cannula Nasal Cannula O2 Flow Rate 2.0 2.0 2.0 2.0 08/22/16 08/22/16 08/22/16 08/22/16 03:31 07:00 07:41 08:00 Temp 98.0 98.3 98.0 98.3 Pulse 96 92 Resp 20 20 B/P (MAP) 85/59 (68) 108/70 (83) Pulse Ox 90 93 95 O2 Delivery Nasal Cannula Nasal Cannula Nasal Cannula Nasal Cannula O2 Flow Rate 2.0 2.0 2.0 2.0 08/22/16 08/22/16 11:00 11:38 Temp 97.4 97.4 Pulse 94 Resp 18 B/P (MAP) 113/80 (91) Pulse Ox 91 95 O2 Delivery Nasal Cannula Nasal Cannula O2 Flow Rate 2.0 2.0 Intake and Output 08/21/16 08/21/16 08/22/16 15:00 23:00 07:00 Output Total 1800 ml Balance -1800 ml GINA ALMAZAN MD Aug 22, 2016 14:25
[2016-08-22] MEDS ORDERED: ONDANSETRON PF 4 MG/2 ML VIAL. IV PRN (14:30)
[2016-08-22 15:00] VITALS: BP 96/59
--- NOTE | 2016-08-22 16:10 | CARD ---
APPROVED REPORT EXAM: Two-dimensional and M-mode echocardiogram with Doppler and color Doppler. Other Information Quality : GoodHR: 120bpm INDICATION Dyspnea 2D DIMENSIONS IVSd0.7 (0.7-1.1cm)Aortic Root(2D)2.5 (2.0-3.7cm) LVDd4.2 (3.9-5.9cm)LVOT Diameter2.0 (1.8-2.4cm) PWd0.7 (0.7-1.1cm)LVDs2.6 (2.5-4.0cm) FS (%) 37.4 %SV52.1 ml LVEF(%)67.8 (>50%)CO6.2 L/min M-Mode DIMENSIONS Aortic Cusp Exc1.79 (1.5-2.0cm) Aortic Valve AoV Peak Rober.105.9cm/sAoV VTI13.8cm AO Peak GR.4.5mmHgLVOT VTI 12.78cm AO Mean GR.3mmHg Mitral Valve MV E Pikbnmsj88.3cm/sMV E Peak Gr.5mmHg MV DECEL [id number] A Jefsndno99.3cm/s MV E Mean Gr.2mmHgE/A Ratio0.9 MV A [id number] TDI Lateral E' P. V11.01cm/sMedial E' P. V8.63cm/s E/Lateral E'5.4E/Medial E'6.9 Pulmonary Valve PV Peak Ybkxgexl39.2cm/s Tricuspid Valve TR P. [id number]/sRAP [id number] TR Peak Gr.[id number] LEFT VENTRICLE The left ventricle is normal size. There is normal left ventricular wall thickness. The left ventricu lar systolic function is normal and the ejection fraction is within normal range. Left ventricular ej ection fraction is 55-60%. There is a flattened septum consistent with right ventricle volume and pre ssure overload. No left ventricle thrombus noted on this study. There is no ventricular septal defect visualized. There is no left ventricular aneurysm. There is no mass noted in the left ventricle. RIGHT VENTRICLE The right ventricle is moderately dilated. There is normal right ventricular wall thickness. The righ t ventricular systolic function is normal. ATRIA The left atrium is small. The right atrium is severely dilated. The interatrial septum is intact with no evidence for an atrial septal defect or patent foramen ovale as noted on 2-D or Doppler imaging. AORTIC VALVE The aortic valve is normal in structure and function. Doppler and Color Flow revealed no significant aortic regurgitation. There is no significant aortic valvular stenosis. There is no aortic valvular v egetation. MITRAL VALVE The mitral valve is normal in structure and function. There is no evidence of mitral valve prolapse. There is no mitral valve stenosis. Doppler and Color Flow revealed trace to mild mitral regurgitation . TRICUSPID VALVE The tricuspid valve is normal in structure. Doppler and Color Flow revealed moderate tricuspid regurg itation. Doppler and Color Flow revealed severe pulmonary hypertension. The pulmonary artery systolic pressure is estimated at greater than 70 mmnHg. There is no tricuspid valve prolapse or vegetation. There is no tricuspid valve stenosis. PULMONIC VALVE The pulmonary valve is normal in structure and function. Doppler and Color Flow revealed trace to mil d pulmonic valvular regurgitation. There is no pulmonic valvular stenosis. GREAT VESSELS The aortic root is normal in size. The IVC is normal in size and collapses >50% with inspiration. PERICARDIAL EFFUSION There is no pleural effusion. There is a small pericardial effusion with no hemodynamic significance. Critical Notification Physician Notified Date: 08/22/2016 Time: 14:15 Physician Name:kenrick Critical Value: Yes Response Time:one minute Report Read Back <Conclusion> The left ventricle is normal size. The left ventricular systolic function is normal and the ejection fraction is within normal range. Left ventricular ejection fraction is 55-60%. There is a flattened septum consistent with right ventricle volume and pressure overload. The right ventricle is moderately dilated. The right atrium is severely dilated. There is no significant aortic valvular stenosis. Doppler and Color Flow revealed no significant aortic regurgitation. Doppler and Color Flow revealed trace to mild mitral regurgitation. Doppler and Color Flow revealed moderate tricuspid regurgitation. Doppler and Color Flow revealed severe pulmonary hypertension. The pulmonary artery systolic pressure is estimated at greater than 70 mmnHg. Doppler and Color Flow revealed trace to mild pulmonic valvular regurgitation. There is a small pericardial effusion with no hemodynamic significance.
[2016-08-22] MEDS ORDERED: ALBUTEROL SULFATE 2.5 MG/3 ML NEBU. NEB PRN (18:45)
[2016-08-22 19:10] VITALS: BP 105/61
[2016-08-22] MEDS: ENOXAPARIN 40 MG/0.4 ML SYRINGE. SQ SCH (21:24)
[2016-08-22] MEDS: guaiFENesin/CODEINE 100mg/10mg 5 ML LIQUID PO PRN (21:49)
[2016-08-22 22:34] LABS: BILIRUBIN,URINE NEGATIVE (NEG); GLUCOSE,URINE NEGATIVE (NEG); NITRITE,URINE NEGATIVE (NEG); PROTEIN,URINE NEGATIVE (NEG-TRACE)
[2016-08-22 22:43] LABS: BACTERIA,URINE FEW /HPF (0-FEW); RBC,URINE OCC /HPF (0-2); SQUAMOUS EPITHELIAL CELL,UR MOD /LPF; WBC,URINE 20-40 /HPF (0-4)
[2016-08-22 23:10] VITALS: BP 100/39
[2016-08-23] VITALS (7 sets, daily range): BP systolic 93–105; BP diastolic 49–66
[2016-08-23 04:33] LABS: BASO % 1 % (0-3); EOS % 3 % (0-3); HEMATOCRIT 32.3 % (36.0-47.0); HEMOGLOBIN 9.8 g/dL (12.0-15.5); LYMPH # 1.4 x10^3/uL (1.0-4.8); LYMPH % 24 % (24-48); MEAN CORPUSCULAR HEMOGLOBIN 23 pg (25-35); MEAN CORPUSCULAR HGB CONC 31 g/dL (31-37); MEAN CORPUSCULAR VOLUME 74 fL (79-100); MONO % 14 % (0-9); NEUT % 59 % (31-73); PLATELET COUNT 189 x10^3/uL (140-400); RED BLOOD COUNT 4.36 x10^6/uL (3.50-5.40); RED CELL DISTRIBUTION WIDTH 19.1 % (11.5-14.5); WHITE BLOOD COUNT 5.8 x10^3/uL (4.0-11.0)
[2016-08-23 04:50] LABS: BLOOD UREA NITROGEN 11 mg/dL (7-20); CALCIUM 8.3 mg/dL (8.5-10.1); CARBON DIOXIDE 41 mmol/L (21-32); CHLORIDE 104 mmol/L (98-107); CREATININE 0.6 mg/dL (0.6-1.0); GFR 131.4; GLUCOSE 100 mg/dL (70-99); POTASSIUM 3.7 mmol/L (3.5-5.1); SODIUM 144 mmol/L (136-145)
[2016-08-23] MEDS: IPRATRPIUM/ALBUTEROL 0.5/2.5MG 3 ML NEBU. NEB SCH ×4 (08:03→19:36)
[2016-08-23] MEDS: DOCUSATE SODIUM 100 MG CAPSULE. PO SCH ×2 (09:00→20:39)
[2016-08-23] MEDS: HYDROXYCHLOROQUINE 200 MG TABLET PO SCH ×2 (09:33→20:37)
--- NOTE | 2016-08-23 09:51 | RAD ---
One or more of the following individualized dose reduction techniques were utilized for this examination: 1. Automated exposure control 2. Adjustment of the mA and/or kV according to patient size 3. Use of iterative reconstruction technique CT chest without contrast. History: Short of air, interstitial lung disease, fibrosis CT of the chest was done without contrast. Comparison is made with a study from January 2016. Thyroid is homogeneous. Heart is enlarged. There is no pleural effusion. There is evidence of bronchiectasis, fibrosis and interstitial lung disease. An acute pneumonia is not identified. There is been mild worsening since the previous study although differences in degrees of inspiration could account for the difference. There is thoracolumbar scoliosis. There is edema in the soft tissues possible anasarca. A liver lesion is not identified. Spleen is normal in size. Impression: 1. Interstitial lung disease with pulmonary fibrosis, bronchiectasis and mild groundglass infiltrates. 2. Slight worsening since the prior study although the patient may have taken a poorer inspiration. 3. No new areas of pneumonia or consolidating infiltrate or pleural effusion.
--- NOTE | 2016-08-23 12:51 | PDOC ---
PULMONARY PROGRESS NOTES Subjective no increase soa Vitals Vital Signs Date Time Temp Pulse Resp B/P (MAP) Pulse Ox O2 Delivery O2 Flow Rate FiO2 08/23/16 11:50 100 Nasal Cannula 3.0 08/23/16 11:00 96 18 97/51 (66) 08/23/16 07:00 98.6 98.6 General: Alert, No acute distress Lungs: Crackles (bases) Cardiovascular: S1, S2 Abdomen: Soft Extremities: Other (2+edema) Labs Laboratory Tests Test 08/22/16 03:05 08/22/16 08:45 08/22/16 21:45 08/23/16 04:00 White Blood Count 6.8 x10^3/uL (4.0-11.0) 5.8 x10^3/uL (4.0-11.0) Red Blood Count 4.51 x10^6/uL (3.50-5.40) 4.36 x10^6/uL (3.50-5.40) Hemoglobin 10.3 g/dL (12.0-15.5) 9.8 g/dL (12.0-15.5) Hematocrit 33.5 % (36.0-47.0) 32.3 % (36.0-47.0) Mean Corpuscular Volume 74 fL (79-100) 74 fL (79-100) Mean Corpuscular Hemoglobin 23 pg (25-35) 23 pg (25-35) Mean Corpuscular Hemoglobin Concent 31 g/dL (31-37) 31 g/dL (31-37) Red Cell Distribution Width 19.2 % (11.5-14.5) 19.1 % (11.5-14.5) Platelet Count 208 x10^3/uL (140-400) 189 x10^3/uL (140-400) Neutrophils (%) (Auto) 70 % (31-73) 59 % (31-73) Lymphocytes (%) (Auto) 16 % (24-48) 24 % (24-48) Monocytes (%) (Auto) 11 % (0-9) 14 % (0-9) Eosinophils (%) (Auto) 2 % (0-3) 3 % (0-3) Basophils (%) (Auto) 1 % (0-3) 1 % (0-3) Neutrophils # (Auto) 4.7 x10^3uL (1.8-7.7) 3.4 x10^3uL (1.8-7.7) Lymphocytes # (Auto) 1.1 x10^3/uL (1.0-4.8) 1.4 x10^3/uL (1.0-4.8) Monocytes # (Auto) 0.8 x10^3/uL (0.0-1.1) 0.8 x10^3/uL (0.0-1.1) Eosinophils # (Auto) 0.1 x10^3/uL (0.0-0.7) 0.2 x10^3/uL (0.0-0.7) Basophils # (Auto) 0.1 x10^3/uL (0.0-0.2) 0.0 x10^3/uL (0.0-0.2) Platelet Estimate Adequate (ADEQUATE) Hypochromasia Mod Anisocytosis Slight Microcytosis Slight Prothrombin Time 15.6 SEC (11.7-14.0) Prothromb Time International Ratio 1.3 (0.8-1.1) Sodium Level 143 mmol/L (136-145) 144 mmol/L (136-145) Potassium Level 4.0 mmol/L (3.5-5.1) 3.7 mmol/L (3.5-5.1) Chloride Level 103 mmol/L (98-107) 104 mmol/L (98-107) Carbon Dioxide Level 40 mmol/L (21-32) 41 mmol/L (21-32) Anion Gap 0 (6-14) (6-14) Blood Urea Nitrogen 10 mg/dL (7-20) 11 mg/dL (7-20) Creatinine 0.5 mg/dL (0.6-1.0) 0.6 mg/dL (0.6-1.0) Estimated GFR (Cockcroft-Gault) 162.2 131.4 Glucose Level 100 mg/dL (70-99) 100 mg/dL (70-99) Calcium Level 8.4 mg/dL (8.5-10.1) 8.3 mg/dL (8.5-10.1) Phosphorus Level 4.3 mg/dL (2.6-4.7) Magnesium Level 2.0 mg/dL (1.8-2.4) Troponin I Quantitative 0.056 ng/mL (0.000-0.055) 0.029 ng/mL (0.000-0.055) Triglycerides Level 58 mg/dL (0-150) Cholesterol Level 95 mg/dL (0-200) LDL Cholesterol, Calculated 54 mg/dL (0-100) VLDL Cholesterol, Calculated 12 mg/dL (0-40) Non-HDL Cholesterol Calculated 66 mg/dL (0-129) HDL Cholesterol 29 mg/dL (40-60) Cholesterol/HDL Ratio 3.3 Thyroid Stimulating Hormone (TSH) 3.086 uIU/mL (0.358-3.74) Creatine Kinase 298 U/L (26-192) PD-Aex-F-Type Natriuretic Peptide 3848 pg/mL (0-124) Urine Collection Type Unknown Urine Color Yellow Urine Clarity Cloudy Urine pH 8.0 Urine Specific [place] 1.015 Urine Protein Negative mg/dL (NEG-TRACE) Urine Glucose (UA) Negative mg/dL (NEG) Urine Ketones (Stick) Negative mg/dL (NEG) Urine Blood Negative (NEG) Urine Nitrite Negative (NEG) Urine Bilirubin Negative (NEG) Urine Urobilinogen Dipstick 1.0 mg/dL (0.2 mg/dL) Urine Leukocyte Esterase Large (NEG) Urine RBC Occ /HPF (0-2) Urine WBC 20-40 /HPF (0-4) Urine Squamous Epithelial Cells Mod /LPF Urine Bacteria Few /HPF (0-FEW) Urine Mucus Slight /LPF Laboratory Tests Test 08/22/16 21:45 08/23/16 04:00 Urine Collection Type Unknown Urine Color Yellow Urine Clarity Cloudy Urine pH 8.0 Urine Specific [place] 1.015 Urine Protein Negative mg/dL (NEG-TRACE) Urine Glucose (UA) Negative mg/dL (NEG) Urine Ketones (Stick) Negative mg/dL (NEG) Urine Blood Negative (NEG) Urine Nitrite Negative (NEG) Urine Bilirubin Negative (NEG) Urine Urobilinogen Dipstick 1.0 mg/dL (0.2 mg/dL) Urine Leukocyte Esterase Large (NEG) Urine RBC Occ /HPF (0-2) Urine WBC 20-40 /HPF (0-4) Urine Squamous Epithelial Cells Mod /LPF Urine Bacteria Few /HPF (0-FEW) Urine Mucus Slight /LPF White Blood Count 5.8 x10^3/uL (4.0-11.0) Red Blood Count 4.36 x10^6/uL (3.50-5.40) Hemoglobin 9.8 g/dL (12.0-15.5) Hematocrit 32.3 % (36.0-47.0) Mean Corpuscular Volume 74 fL (79-100) Mean Corpuscular Hemoglobin 23 pg (25-35) Mean Corpuscular Hemoglobin Concent 31 g/dL (31-37) Red Cell Distribution Width 19.1 % (11.5-14.5) Platelet Count 189 x10^3/uL (140-400) Neutrophils (%) (Auto) 59 % (31-73) Lymphocytes (%) (Auto) 24 % (24-48) Monocytes (%) (Auto) 14 % (0-9) Eosinophils (%) (Auto) 3 % (0-3) Basophils (%) (Auto) 1 % (0-3) Neutrophils # (Auto) 3.4 x10^3uL (1.8-7.7) Lymphocytes # (Auto) 1.4 x10^3/uL (1.0-4.8) Monocytes # (Auto) 0.8 x10^3/uL (0.0-1.1) Eosinophils # (Auto) 0.2 x10^3/uL (0.0-0.7) Basophils # (Auto) 0.0 x10^3/uL (0.0-0.2) Sodium Level 144 mmol/L (136-145) Potassium Level 3.7 mmol/L (3.5-5.1) Chloride Level 104 mmol/L (98-107) Carbon Dioxide Level 41 mmol/L (21-32) Anion Gap (6-14) Blood Urea Nitrogen 11 mg/dL (7-20) Creatinine 0.6 mg/dL (0.6-1.0) Estimated GFR (Cockcroft-Gault) 131.4 Glucose Level 100 mg/dL (70-99) Calcium Level 8.3 mg/dL (8.5-10.1) Medications Active Scripts Medications Dose Route/Sig Max Daily Dose Days Date Category Hydroxychloroquine Sulfate 200 Mg Tablet 200 Mg PO BID 11/06/15 Rx Doxycycline Hyclate 100 Mg Tablet 100 Mg PO BID 11/06/15 Rx Doxycycline Hyclate 100 Mg Capsule 1 Cap PO BID 11/06/15 Rx Impression . 1. Progressive dyspnea and hypoxic respiratory failure in a patient who has a diagnosis of interstitial lung disease and SLE, now comes in with severe leg edema , abdominal wall edema and bilateral interstitial infiltrates. Suspect that we may be dealing with progression of interstitial lung disease and acute right heart failure. 2. Abnormal chest x-ray with bilateral interstitial infiltrates. she had a CAT scan last year which showed bilateral interstitial and ground-glass infiltrates and also nodular infiltrates. This could be related to lupus interstitial lung disease however the possibility of sarcoidosis cannot be ruled out. The CT chest findings is not typical of idiopathic type pulmonary fibrosis. 3. Clinically less likely left heart failure . 4. Bilateral lower extremity edema suspect related to acute right heart failure. Her lower extremity dopplers do not show any significant DVT. 5. No significant history of tobacco use. 6. Severe pulmonary HTN, related to ILD/fibrosis Plan . 1. Repeat CT chest reviewed and compared with previous CAT scan. There is mild progression of interstitial lung disease, fibrosis and unchanged Bronchiectasis. These findings are probably related to SLE/ ? Sacroid. ct findings suggest NSIP pattern 2. Ct chest does show some mild ground-glass infiltrates. these may predict response to steroids and we may consider an empiric trial of oral steroids which may help SLE as well. Patient to follow with Dr Tisha arzola OP to re- initiate treatment for SLE, preferably steroids which may help ILD as well. 3. Hold off further diuresis 4. PFTs as an outpatient 5. will also consider pulmonary vasodilators as OP to treat pulmonary hypertension. 6. 6 min walk at de BRYAN HALL MD Aug 23, 2016 12:51
--- NOTE | 2016-08-23 13:28 | PDOC ---
PROGRESS NOTES Chief Complaint Chief Complaint 1. dyspnea, acute on chronic hypoxic resp failure 2/2 acute right side CHF and chronic ILD, PHTN 2. Bilateral LE edema with chf likely 3. Hx ILD, hypoxic respi failure acute on chronic, O2 dependent 4. Hx lupus lungs - off plaquenil 5. Trop leak 0.020 UTI PLAN: fu with card and pul echo SHowed EF 55%, but severe PHTN, right CHF leg US neg for DVT chest CT done showed ILD, similar to before hold lasix for now as per pulm, fu with card duoneb cont plaquinil dvt ppx pt may benefit with steroid treatment for ILD. also may need PHTN treatment. add ceftriaxone for UTI for now, fu ucx History of Present Illness History of Present Illness sob and bl leg edema better home o2 2l, now 3l Vitals Vitals Vital Signs Date Time Temp Pulse Resp B/P (MAP) Pulse Ox O2 Delivery O2 Flow Rate FiO2 08/23/16 11:50 100 Nasal Cannula 3.0 08/23/16 11:00 96 18 97/51 (66) 08/23/16 07:00 98.6 98.6 Physical Exam General: Alert, No acute distress Heart: Normal S1 Lungs: Crackles (bases) Abdomen: Normal bowel sounds Extremities: No clubbing, Other (2+ edema) Skin: No rashes Labs LABS Laboratory Tests Test 08/22/16 21:45 08/23/16 04:00 Urine Collection Type Unknown Urine Color Yellow Urine Clarity Cloudy Urine pH 8.0 Urine Specific [place] 1.015 Urine Protein Negative mg/dL (NEG-TRACE) Urine Glucose (UA) Negative mg/dL (NEG) Urine Ketones (Stick) Negative mg/dL (NEG) Urine Blood Negative (NEG) Urine Nitrite Negative (NEG) Urine Bilirubin Negative (NEG) Urine Urobilinogen Dipstick 1.0 mg/dL (0.2 mg/dL) Urine Leukocyte Esterase Large (NEG) Urine RBC Occ /HPF (0-2) Urine WBC 20-40 /HPF (0-4) Urine Squamous Epithelial Cells Mod /LPF Urine Bacteria Few /HPF (0-FEW) Urine Mucus Slight /LPF White Blood Count 5.8 x10^3/uL (4.0-11.0) Red Blood Count 4.36 x10^6/uL (3.50-5.40) Hemoglobin 9.8 g/dL (12.0-15.5) Hematocrit 32.3 % (36.0-47.0) Mean Corpuscular Volume 74 fL (79-100) Mean Corpuscular Hemoglobin 23 pg (25-35) Mean Corpuscular Hemoglobin Concent 31 g/dL (31-37) Red Cell Distribution Width 19.1 % (11.5-14.5) Platelet Count 189 x10^3/uL (140-400) Neutrophils (%) (Auto) 59 % (31-73) Lymphocytes (%) (Auto) 24 % (24-48) Monocytes (%) (Auto) 14 % (0-9) Eosinophils (%) (Auto) 3 % (0-3) Basophils (%) (Auto) 1 % (0-3) Neutrophils # (Auto) 3.4 x10^3uL (1.8-7.7) Lymphocytes # (Auto) 1.4 x10^3/uL (1.0-4.8) Monocytes # (Auto) 0.8 x10^3/uL (0.0-1.1) Eosinophils # (Auto) 0.2 x10^3/uL (0.0-0.7) Basophils # (Auto) 0.0 x10^3/uL (0.0-0.2) Sodium Level 144 mmol/L (136-145) Potassium Level 3.7 mmol/L (3.5-5.1) Chloride Level 104 mmol/L (98-107) Carbon Dioxide Level 41 mmol/L (21-32) Anion Gap (6-14) Blood Urea Nitrogen 11 mg/dL (7-20) Creatinine 0.6 mg/dL (0.6-1.0) Estimated GFR (Cockcroft-Gault) 131.4 Glucose Level 100 mg/dL (70-99) Calcium Level 8.3 mg/dL (8.5-10.1) Review of Systems Review of Systems no fever, chills, sob or chest pain Comment Review of Relevant I have reviewed the following items ludmila (where applicable) has been applied. Labs Laboratory Tests Test 08/22/16 03:05 08/22/16 08:45 08/22/16 21:45 08/23/16 04:00 White Blood Count 6.8 x10^3/uL (4.0-11.0) 5.8 x10^3/uL (4.0-11.0) Red Blood Count 4.51 x10^6/uL (3.50-5.40) 4.36 x10^6/uL (3.50-5.40) Hemoglobin 10.3 g/dL (12.0-15.5) 9.8 g/dL (12.0-15.5) Hematocrit 33.5 % (36.0-47.0) 32.3 % (36.0-47.0) Mean Corpuscular Volume 74 fL (79-100) 74 fL (79-100) Mean Corpuscular Hemoglobin 23 pg (25-35) 23 pg (25-35) Mean Corpuscular Hemoglobin Concent 31 g/dL (31-37) 31 g/dL (31-37) Red Cell Distribution Width 19.2 % (11.5-14.5) 19.1 % (11.5-14.5) Platelet Count 208 x10^3/uL (140-400) 189 x10^3/uL (140-400) Neutrophils (%) (Auto) 70 % (31-73) 59 % (31-73) Lymphocytes (%) (Auto) 16 % (24-48) 24 % (24-48) Monocytes (%) (Auto) 11 % (0-9) 14 % (0-9) Eosinophils (%) (Auto) 2 % (0-3) 3 % (0-3) Basophils (%) (Auto) 1 % (0-3) 1 % (0-3) Neutrophils # (Auto) 4.7 x10^3uL (1.8-7.7) 3.4 x10^3uL (1.8-7.7) Lymphocytes # (Auto) 1.1 x10^3/uL (1.0-4.8) 1.4 x10^3/uL (1.0-4.8) Monocytes # (Auto) 0.8 x10^3/uL (0.0-1.1) 0.8 x10^3/uL (0.0-1.1) Eosinophils # (Auto) 0.1 x10^3/uL (0.0-0.7) 0.2 x10^3/uL (0.0-0.7) Basophils # (Auto) 0.1 x10^3/uL (0.0-0.2) 0.0 x10^3/uL (0.0-0.2) Platelet Estimate Adequate (ADEQUATE) Hypochromasia Mod Anisocytosis Slight Microcytosis Slight Prothrombin Time 15.6 SEC (11.7-14.0) Prothromb Time International Ratio 1.3 (0.8-1.1) Sodium Level 143 mmol/L (136-145) 144 mmol/L (136-145) Potassium Level 4.0 mmol/L (3.5-5.1) 3.7 mmol/L (3.5-5.1) Chloride Level 103 mmol/L (98-107) 104 mmol/L (98-107) Carbon Dioxide Level 40 mmol/L (21-32) 41 mmol/L (21-32) Anion Gap 0 (6-14) (6-14) Blood Urea Nitrogen 10 mg/dL (7-20) 11 mg/dL (7-20) Creatinine 0.5 mg/dL (0.6-1.0) 0.6 mg/dL (0.6-1.0) Estimated GFR (Cockcroft-Gault) 162.2 131.4 Glucose Level 100 mg/dL (70-99) 100 mg/dL (70-99) Calcium Level 8.4 mg/dL (8.5-10.1) 8.3 mg/dL (8.5-10.1) Phosphorus Level 4.3 mg/dL (2.6-4.7) Magnesium Level 2.0 mg/dL (1.8-2.4) Troponin I Quantitative 0.056 ng/mL (0.000-0.055) 0.029 ng/mL (0.000-0.055) Triglycerides Level 58 mg/dL (0-150) Cholesterol Level 95 mg/dL (0-200) LDL Cholesterol, Calculated 54 mg/dL (0-100) VLDL Cholesterol, Calculated 12 mg/dL (0-40) Non-HDL Cholesterol Calculated 66 mg/dL (0-129) HDL Cholesterol 29 mg/dL (40-60) Cholesterol/HDL Ratio 3.3 Thyroid Stimulating Hormone (TSH) 3.086 uIU/mL (0.358-3.74) Creatine Kinase 298 U/L (26-192) BP-Muy-Q-Type Natriuretic Peptide 3848 pg/mL (0-124) Urine Collection Type Unknown Urine Color Yellow Urine Clarity Cloudy Urine pH 8.0 Urine Specific [place] 1.015 Urine Protein Negative mg/dL (NEG-TRACE) Urine Glucose (UA) Negative mg/dL (NEG) Urine Ketones (Stick) Negative mg/dL (NEG) Urine Blood Negative (NEG) Urine Nitrite Negative (NEG) Urine Bilirubin Negative (NEG) Urine Urobilinogen Dipstick 1.0 mg/dL (0.2 mg/dL) Urine Leukocyte Esterase Large (NEG) Urine RBC Occ /HPF (0-2) Urine WBC 20-40 /HPF (0-4) Urine Squamous Epithelial Cells Mod /LPF Urine Bacteria Few /HPF (0-FEW) Urine Mucus Slight /LPF Laboratory Tests Test 08/22/16 21:45 08/23/16 04:00 Urine Collection Type Unknown Urine Color Yellow Urine Clarity Cloudy Urine pH 8.0 Urine Specific [place] 1.015 Urine Protein Negative mg/dL (NEG-TRACE) Urine Glucose (UA) Negative mg/dL (NEG) Urine Ketones (Stick) Negative mg/dL (NEG) Urine Blood Negative (NEG) Urine Nitrite Negative (NEG) Urine Bilirubin Negative (NEG) Urine Urobilinogen Dipstick 1.0 mg/dL (0.2 mg/dL) Urine Leukocyte Esterase Large (NEG) Urine RBC Occ /HPF (0-2) Urine WBC 20-40 /HPF (0-4) Urine Squamous Epithelial Cells Mod /LPF Urine Bacteria Few /HPF (0-FEW) Urine Mucus Slight /LPF White Blood Count 5.8 x10^3/uL (4.0-11.0) Red Blood Count 4.36 x10^6/uL (3.50-5.40) Hemoglobin 9.8 g/dL (12.0-15.5) Hematocrit 32.3 % (36.0-47.0) Mean Corpuscular Volume 74 fL (79-100) Mean Corpuscular Hemoglobin 23 pg (25-35) Mean Corpuscular Hemoglobin Concent 31 g/dL (31-37) Red Cell Distribution Width 19.1 % (11.5-14.5) Platelet Count 189 x10^3/uL (140-400) Neutrophils (%) (Auto) 59 % (31-73) Lymphocytes (%) (Auto) 24 % (24-48) Monocytes (%) (Auto) 14 % (0-9) Eosinophils (%) (Auto) 3 % (0-3) Basophils (%) (Auto) 1 % (0-3) Neutrophils # (Auto) 3.4 x10^3uL (1.8-7.7) Lymphocytes # (Auto) 1.4 x10^3/uL (1.0-4.8) Monocytes # (Auto) 0.8 x10^3/uL (0.0-1.1) Eosinophils # (Auto) 0.2 x10^3/uL (0.0-0.7) Basophils # (Auto) 0.0 x10^3/uL (0.0-0.2) Sodium Level 144 mmol/L (136-145) Potassium Level 3.7 mmol/L (3.5-5.1) Chloride Level 104 mmol/L (98-107) Carbon Dioxide Level 41 mmol/L (21-32) Anion Gap (6-14) Blood Urea Nitrogen 11 mg/dL (7-20) Creatinine 0.6 mg/dL (0.6-1.0) Estimated GFR (Cockcroft-Gault) 131.4 Glucose Level 100 mg/dL (70-99) Calcium Level 8.3 mg/dL (8.5-10.1) Medications Current Medications Ondansetron HCl (Zofran) 4 mg PRN Q6HRS PRN IV NAUSEA/VOMITING 1ST CHOICE; Start 08/21/16 at 20:45; Stop 08/22/16 at 14:25; Status DC Prochlorperazine Edisylate (Compazine) 10 mg PRN Q6HRS PRN IV NAUSEA/VOMITING 2ND CHOICE; Start 08/21/16 at 20:45 Prochlorperazine (Compazine) 25 mg PRN Q12HR PRN [place] NAUSEA/VOMITING; Start at 20:45 Al Hydroxide/Mg Hydroxide (Mylanta Plus Xs) 30 ml PRN Q3HRS PRN PO HEARTBURN / GAS; Start 08/21/16 at 20:45 Calcium Carbonate/ Glycine (Tums) 500 mg PRN Q3HRS PRN PO UPSET STOMACH; Start 08/21/16 at 20:45 Oxycodone HCl (Roxicodone) 5 mg PRN Q3HRS PRN PO BREAKTHROUGH PAIN; Start 08/21 at 20:45 Morphine Sulfate 1 mg PRN Q1HR PRN IV PAIN; Start 08/21/16 at 20:45 Acetaminophen (Tylenol) 650 mg PRN Q6HRS PRN PO Headaches, Temp > 101.5F; Start 08/21/16 at 20:45 Ibuprofen (Motrin) 400 mg PRN Q6HRS PRN PO MILD PAIN; Start 08/21/16 at 20:45; Stop 08/22/16 at 10:51; Status DC Docusate Sodium (Colace) 100 mg BID PO ; Start 08/21/16 at 21:00 Magnesium Hydroxide (Milk Of Magnesia) 2,400 mg PRN Q12HR PRN PO CONSTIPATION; Start 08/21/16 at 20:45 Lactulose 20 gm PRN Q12HR PRN PO CONSTIPATION; Start 08/21/16 at 20:45 Bisacodyl (Dulcolax Supp) 10 mg PRN DAILY PRN [place] CONSTIPATION; Start 08/21/16 at 20:45 Enoxaparin Sodium (Lovenox 40mg Syringe) 40 mg Q24H SQ Last administered on 21:24; Start 08/21/16 at 21:00 Albuterol/ Ipratropium (Duoneb) 3 ml RTQID NEB Last administered on 08/23/16 11:49; Start 08/21/16 at 21:00 Hydroxychloroquine Sulfate (Plaquenil) 200 mg BID PO Last administered on 09:33; Start 08/21/16 at 21:00 Furosemide (Lasix) 40 mg DAILY IVP Last administered on 08/22/16 09:09; Start 08/22/16 at 09:00; Stop 08/22/16 at 11:56; Status DC Ondansetron HCl (Zofran) 4 mg PRN Q6HRS PRN IV NAUSEA/VOMITING 1ST CHOICE; Start 08/22/16 at 14:30 Albuterol Sulfate (Ventolin Neb Soln) 2.5 mg Q2HR PRN NEB SHORTNESS OF BREATH; Start 08/22/16 at 18:45 Guaifenesin/ Codeine Phosphate (Robitussin Ac) 5 ml PRN Q6HRS PRN PO COUGH Last administered on 08/22/16t 21:49; Start 08/22/16 at 21:45 Ceftriaxone Sodium 1 gm/ Sodium Chloride 50 ml @ 100 mls/hr Q24H IV ; Start at 11:00 Active Scripts Active Hydroxychloroquine Sulfate 200 Mg Tablet 200 Mg PO BID 30 Days Doxycycline Hyclate 100 Mg Tablet 100 Mg PO BID Doxycycline Hyclate 100 Mg Capsule 1 Cap PO BID Vitals/I & O Vital Sign - Last 24 Hours 08/22/16 08/22/16 08/22/16 08/22/16 15:00 16:24 19:10 20:00 Temp 98.5 98.9 98.5 98.9 Pulse 117 123 Resp 18 18 B/P (MAP) 96/59 (71) 105/61 (76) Pulse Ox 91 95 94 O2 Delivery Nasal Cannula Nasal Cannula Nasal Cannula Nasal Cannula O2 Flow Rate 2.0 2.0 2.0 3.0 08/22/16 08/22/16 08/23/16 08/23/16 20:13 23:10 03:10 07:00 Temp 98.6 97.8 97.8 98.6 97.8 97.8 Pulse 102 90 90 Resp 18 18 B/P (MAP) 100/39 (59) 93/49 (64) 93/49 (64) Pulse Ox 91 98 97 97 O2 Delivery Nasal Cannula Nasal Cannula Nasal Cannula Nasal Cannula O2 Flow Rate 3.0 3.0 3.0 3.0 08/23/16 08/23/16 08/23/16 08/23/16 07:00 08:00 08:04 11:00 Temp 98.6 98.6 Pulse 88 96 Resp 18 18 B/P (MAP) 95/55 (68) 97/51 (66) Pulse Ox 94 98 99 O2 Delivery Nasal Cannula Nasal Cannula Nasal Cannula Nasal Cannula O2 Flow Rate 3.0 3.0 3.0 3.0 08/23/16 11:50 Pulse Ox 100 O2 Delivery Nasal Cannula O2 Flow Rate 3.0 Intake and Output 08/22/16 08/22/16 08/23/16 15:00 23:00 07:00 Intake Total 900 ml 0 ml Output Total 4800 ml 350 ml Balance -3900 ml -350 ml GINA ALMAZAN MD Aug 23, 2016 13:28
--- NOTE | 2016-08-23 14:20 | PDOC ---
PROGRESS NOTES Subjective Subjective The patient feels mildly better today. Objective Objective Vital Signs Date Time Temp Pulse Resp B/P (MAP) Pulse Ox O2 Delivery O2 Flow Rate FiO2 08/23/16 11:50 100 Nasal Cannula 3.0 08/23/16 11:00 96 18 97/51 (66) 08/23/16 07:00 98.6 98.6 Intake and Output 08/23/16 07:00 Intake Total 900 ml Output Total 5150 ml Balance -4250 ml Intake Oral 900 ml Output Urine Total 5150 ml # Bowel Movements 1 Physical Exam Abdomen: Normal bowel sounds Heart: Regular rate General: mild distress Lungs: Other (mildly decreased breath sounds) Assessment Assessment 1. Progressive dyspnea and hypoxic respiratory failure in a patient who has a diagnosis of interstitial lung disease. Progression of interstitial lung disease. Mildly improved today. Continuing present treatment. 2. Abnormal chest x-ray with bilateral interstitial infiltrates. she had a CAT scan last year which showed bilateral interstitial and ground-glass infiltrates and also nodular infiltrates. This could be related to lupus interstitial lung disease however the possibility of sarcoidosis cannot be ruled out. The CT chest findings is not typical of idiopathic type pulmonary fibrosis. Pulmonary workup in progress. 3. Severe pulmonary hypertension. Intact LV systolic function on echo. Continuing pulmonary treatments. 4. Bilateral lower extremity edema. Lower extremity dopplers have been ordered and preliminary results do not show any significant DVT. Continuing present treatment. Comment Review of Relevant I have reviewed the following items ludmila (where applicable) has been applied. Labs Laboratory Tests Test 08/22/16 03:05 08/22/16 08:45 08/22/16 21:45 08/23/16 04:00 White Blood Count 6.8 x10^3/uL (4.0-11.0) 5.8 x10^3/uL (4.0-11.0) Red Blood Count 4.51 x10^6/uL (3.50-5.40) 4.36 x10^6/uL (3.50-5.40) Hemoglobin 10.3 g/dL (12.0-15.5) 9.8 g/dL (12.0-15.5) Hematocrit 33.5 % (36.0-47.0) 32.3 % (36.0-47.0) Mean Corpuscular Volume 74 fL (79-100) 74 fL (79-100) Mean Corpuscular Hemoglobin 23 pg (25-35) 23 pg (25-35) Mean Corpuscular Hemoglobin Concent 31 g/dL (31-37) 31 g/dL (31-37) Red Cell Distribution Width 19.2 % (11.5-14.5) 19.1 % (11.5-14.5) Platelet Count 208 x10^3/uL (140-400) 189 x10^3/uL (140-400) Neutrophils (%) (Auto) 70 % (31-73) 59 % (31-73) Lymphocytes (%) (Auto) 16 % (24-48) 24 % (24-48) Monocytes (%) (Auto) 11 % (0-9) 14 % (0-9) Eosinophils (%) (Auto) 2 % (0-3) 3 % (0-3) Basophils (%) (Auto) 1 % (0-3) 1 % (0-3) Neutrophils # (Auto) 4.7 x10^3uL (1.8-7.7) 3.4 x10^3uL (1.8-7.7) Lymphocytes # (Auto) 1.1 x10^3/uL (1.0-4.8) 1.4 x10^3/uL (1.0-4.8) Monocytes # (Auto) 0.8 x10^3/uL (0.0-1.1) 0.8 x10^3/uL (0.0-1.1) Eosinophils # (Auto) 0.1 x10^3/uL (0.0-0.7) 0.2 x10^3/uL (0.0-0.7) Basophils # (Auto) 0.1 x10^3/uL (0.0-0.2) 0.0 x10^3/uL (0.0-0.2) Platelet Estimate Adequate (ADEQUATE) Hypochromasia Mod Anisocytosis Slight Microcytosis Slight Prothrombin Time 15.6 SEC (11.7-14.0) Prothromb Time International Ratio 1.3 (0.8-1.1) Sodium Level 143 mmol/L (136-145) 144 mmol/L (136-145) Potassium Level 4.0 mmol/L (3.5-5.1) 3.7 mmol/L (3.5-5.1) Chloride Level 103 mmol/L (98-107) 104 mmol/L (98-107) Carbon Dioxide Level 40 mmol/L (21-32) 41 mmol/L (21-32) Anion Gap 0 (6-14) (6-14) Blood Urea Nitrogen 10 mg/dL (7-20) 11 mg/dL (7-20) Creatinine 0.5 mg/dL (0.6-1.0) 0.6 mg/dL (0.6-1.0) Estimated GFR (Cockcroft-Gault) 162.2 131.4 Glucose Level 100 mg/dL (70-99) 100 mg/dL (70-99) Calcium Level 8.4 mg/dL (8.5-10.1) 8.3 mg/dL (8.5-10.1) Phosphorus Level 4.3 mg/dL (2.6-4.7) Magnesium Level 2.0 mg/dL (1.8-2.4) Troponin I Quantitative 0.056 ng/mL (0.000-0.055) 0.029 ng/mL (0.000-0.055) Triglycerides Level 58 mg/dL (0-150) Cholesterol Level 95 mg/dL (0-200) LDL Cholesterol, Calculated 54 mg/dL (0-100) VLDL Cholesterol, Calculated 12 mg/dL (0-40) Non-HDL Cholesterol Calculated 66 mg/dL (0-129) HDL Cholesterol 29 mg/dL (40-60) Cholesterol/HDL Ratio 3.3 Thyroid Stimulating Hormone (TSH) 3.086 uIU/mL (0.358-3.74) Creatine Kinase 298 U/L (26-192) OG-Lfx-N-Type Natriuretic Peptide 3848 pg/mL (0-124) Urine Collection Type Unknown Urine Color Yellow Urine Clarity Cloudy Urine pH 8.0 Urine Specific [place] 1.015 Urine Protein Negative mg/dL (NEG-TRACE) Urine Glucose (UA) Negative mg/dL (NEG) Urine Ketones (Stick) Negative mg/dL (NEG) Urine Blood Negative (NEG) Urine Nitrite Negative (NEG) Urine Bilirubin Negative (NEG) Urine Urobilinogen Dipstick 1.0 mg/dL (0.2 mg/dL) Urine Leukocyte Esterase Large (NEG) Urine RBC Occ /HPF (0-2) Urine WBC 20-40 /HPF (0-4) Urine Squamous Epithelial Cells Mod /LPF Urine Bacteria Few /HPF (0-FEW) Urine Mucus Slight /LPF Laboratory Tests Test 08/22/16 21:45 08/23/16 04:00 Urine Collection Type Unknown Urine Color Yellow Urine Clarity Cloudy Urine pH 8.0 Urine Specific [place] 1.015 Urine Protein Negative mg/dL (NEG-TRACE) Urine Glucose (UA) Negative mg/dL (NEG) Urine Ketones (Stick) Negative mg/dL (NEG) Urine Blood Negative (NEG) Urine Nitrite Negative (NEG) Urine Bilirubin Negative (NEG) Urine Urobilinogen Dipstick 1.0 mg/dL (0.2 mg/dL) Urine Leukocyte Esterase Large (NEG) Urine RBC Occ /HPF (0-2) Urine WBC 20-40 /HPF (0-4) Urine Squamous Epithelial Cells Mod /LPF Urine Bacteria Few /HPF (0-FEW) Urine Mucus Slight /LPF White Blood Count 5.8 x10^3/uL (4.0-11.0) Red Blood Count 4.36 x10^6/uL (3.50-5.40) Hemoglobin 9.8 g/dL (12.0-15.5) Hematocrit 32.3 % (36.0-47.0) Mean Corpuscular Volume 74 fL (79-100) Mean Corpuscular Hemoglobin 23 pg (25-35) Mean Corpuscular Hemoglobin Concent 31 g/dL (31-37) Red Cell Distribution Width 19.1 % (11.5-14.5) Platelet Count 189 x10^3/uL (140-400) Neutrophils (%) (Auto) 59 % (31-73) Lymphocytes (%) (Auto) 24 % (24-48) Monocytes (%) (Auto) 14 % (0-9) Eosinophils (%) (Auto) 3 % (0-3) Basophils (%) (Auto) 1 % (0-3) Neutrophils # (Auto) 3.4 x10^3uL (1.8-7.7) Lymphocytes # (Auto) 1.4 x10^3/uL (1.0-4.8) Monocytes # (Auto) 0.8 x10^3/uL (0.0-1.1) Eosinophils # (Auto) 0.2 x10^3/uL (0.0-0.7) Basophils # (Auto) 0.0 x10^3/uL (0.0-0.2) Sodium Level 144 mmol/L (136-145) Potassium Level 3.7 mmol/L (3.5-5.1) Chloride Level 104 mmol/L (98-107) Carbon Dioxide Level 41 mmol/L (21-32) Anion Gap (6-14) Blood Urea Nitrogen 11 mg/dL (7-20) Creatinine 0.6 mg/dL (0.6-1.0) Estimated GFR (Cockcroft-Gault) 131.4 Glucose Level 100 mg/dL (70-99) Calcium Level 8.3 mg/dL (8.5-10.1) Microbiology 08/22/16 Urine Culture - Preliminary, Resulted 08/22/16 Urine Culture Result 1 (BRIANA) - Preliminary, Resulted Medications Current Medications Ondansetron HCl (Zofran) 4 mg PRN Q6HRS PRN IV NAUSEA/VOMITING 1ST CHOICE; Start 08/21/16 at 20:45; Stop 08/22/16 at 14:25; Status DC Prochlorperazine Edisylate (Compazine) 10 mg PRN Q6HRS PRN IV NAUSEA/VOMITING 2ND CHOICE; Start 08/21/16 at 20:45 Prochlorperazine (Compazine) 25 mg PRN Q12HR PRN [place] NAUSEA/VOMITING; Start at 20:45 Al Hydroxide/Mg Hydroxide (Mylanta Plus Xs) 30 ml PRN Q3HRS PRN PO HEARTBURN / GAS; Start 08/21/16 at 20:45 Calcium Carbonate/ Glycine (Tums) 500 mg PRN Q3HRS PRN PO UPSET STOMACH; Start 08/21/16 at 20:45 Oxycodone HCl (Roxicodone) 5 mg PRN Q3HRS PRN PO BREAKTHROUGH PAIN; Start 08/21 at 20:45 Morphine Sulfate 1 mg PRN Q1HR PRN IV PAIN; Start 08/21/16 at 20:45 Acetaminophen (Tylenol) 650 mg PRN Q6HRS PRN PO Headaches, Temp > 101.5F; Start 08/21/16 at 20:45 Ibuprofen (Motrin) 400 mg PRN Q6HRS PRN PO MILD PAIN; Start 08/21/16 at 20:45; Stop 08/22/16 at 10:51; Status DC Docusate Sodium (Colace) 100 mg BID PO ; Start 08/21/16 at 21:00 Magnesium Hydroxide (Milk Of Magnesia) 2,400 mg PRN Q12HR PRN PO CONSTIPATION; Start 08/21/16 at 20:45 Lactulose 20 gm PRN Q12HR PRN PO CONSTIPATION; Start 08/21/16 at 20:45 Bisacodyl (Dulcolax Supp) 10 mg PRN DAILY PRN [place] CONSTIPATION; Start 08/21/16 at 20:45 Enoxaparin Sodium (Lovenox 40mg Syringe) 40 mg Q24H SQ Last administered on 21:24; Start 08/21/16 at 21:00 Albuterol/ Ipratropium (Duoneb) 3 ml RTQID NEB Last administered on 08/23/16 11:49; Start 08/21/16 at 21:00 Hydroxychloroquine Sulfate (Plaquenil) 200 mg BID PO Last administered on 09:33; Start 08/21/16 at 21:00 Furosemide (Lasix) 40 mg DAILY IVP Last administered on 08/22/16 09:09; Start 08/22/16 at 09:00; Stop 08/22/16 at 11:56; Status DC Ondansetron HCl (Zofran) 4 mg PRN Q6HRS PRN IV NAUSEA/VOMITING 1ST CHOICE; Start 08/22/16 at 14:30 Albuterol Sulfate (Ventolin Neb Soln) 2.5 mg Q2HR PRN NEB SHORTNESS OF BREATH; Start 08/22/16 at 18:45 Guaifenesin/ Codeine Phosphate (Robitussin Ac) 5 ml PRN Q6HRS PRN PO COUGH Last administered on 08/22/16 21:49; Start 08/22/16 at 21:45 Ceftriaxone Sodium 1 gm/ Sodium Chloride 50 ml @ 100 mls/hr Q24H IV ; Start at 11:00 Active Scripts Active Hydroxychloroquine Sulfate 200 Mg Tablet 200 Mg PO BID 30 Days Doxycycline Hyclate 100 Mg Tablet 100 Mg PO BID Doxycycline Hyclate 100 Mg Capsule 1 Cap PO BID Vitals/I & O Vital Sign - Last 24 Hours 08/22/16 08/22/16 08/22/16 08/22/16 15:00 16:24 19:10 20:00 Temp 98.5 98.9 98.5 98.9 Pulse 117 123 Resp 18 18 B/P (MAP) 96/59 (71) 105/61 (76) Pulse Ox 91 95 94 O2 Delivery Nasal Cannula Nasal Cannula Nasal Cannula Nasal Cannula O2 Flow Rate 2.0 2.0 2.0 3.0 08/22/16 08/22/16 08/23/16 08/23/16 20:13 23:10 03:10 07:00 Temp 98.6 97.8 97.8 98.6 97.8 97.8 Pulse 102 90 90 Resp 18 18 B/P (MAP) 100/39 (59) 93/49 (64) 93/49 (64) Pulse Ox 91 98 97 97 O2 Delivery Nasal Cannula Nasal Cannula Nasal Cannula Nasal Cannula O2 Flow Rate 3.0 3.0 3.0 3.0 08/23/16 08/23/16 08/23/16 08/23/16 07:00 08:00 08:04 11:00 Temp 98.6 98.6 Pulse 88 96 Resp 18 18 B/P (MAP) 95/55 (68) 97/51 (66) Pulse Ox 94 98 99 O2 Delivery Nasal Cannula Nasal Cannula Nasal Cannula Nasal Cannula O2 Flow Rate 3.0 3.0 3.0 3.0 08/23/16 11:50 Pulse Ox 100 O2 Delivery Nasal Cannula O2 Flow Rate 3.0 Intake and Output 08/22/16 08/22/16 08/23/16 15:00 23:00 07:00 Intake Total 900 ml 0 ml Output Total 4800 ml 350 ml Balance -3900 ml -350 ml MARCO A ALVARENGA MD Aug 23, 2016 14:20
[2016-08-23] MEDS: guaiFENesin/CODEINE 100mg/10mg 5 ML LIQUID PO PRN (19:28)
[2016-08-23] MEDS: ENOXAPARIN 40 MG/0.4 ML SYRINGE. SQ SCH (20:38)
[2016-08-24] VITALS (7 sets, daily range): BP systolic 87–133; BP diastolic 56–84
[2016-08-24] MEDS: guaiFENesin/CODEINE 100mg/10mg 5 ML LIQUID PO PRN ×3 (01:35→18:33)
[2016-08-24 05:39] LABS: BASO # 0.1 x10^3/uL (0.0-0.2); BASO % 1 % (0-3); EOS % 3 % (0-3); HEMOGLOBIN 9.7 g/dL (12.0-15.5); LYMPH # 1.4 x10^3/uL (1.0-4.8); LYMPH % 21 % (24-48); MEAN CORPUSCULAR HEMOGLOBIN 23 pg (25-35); MEAN CORPUSCULAR HGB CONC 30 g/dL (31-37); MEAN CORPUSCULAR VOLUME 74 fL (79-100); MONO % 13 % (0-9); NEUT % 62 % (31-73); PLATELET COUNT 192 x10^3/uL (140-400); RED CELL DISTRIBUTION WIDTH 18.9 % (11.5-14.5); WHITE BLOOD COUNT 6.4 x10^3/uL (4.0-11.0)
[2016-08-24 05:54] LABS: CALCIUM 8.3 mg/dL (8.5-10.1); CREATININE 0.6 mg/dL (0.6-1.0); GFR 131.4; POTASSIUM 3.8 mmol/L (3.5-5.1)
[2016-08-24] MEDS: IPRATRPIUM/ALBUTEROL 0.5/2.5MG 3 ML NEBU. NEB SCH ×4 (07:29→19:03)
[2016-08-24] MEDS: HYDROXYCHLOROQUINE 200 MG TABLET PO SCH ×2 (08:52→20:47)
[2016-08-24] MEDS: DOCUSATE SODIUM 100 MG CAPSULE. PO SCH ×2 (08:54→20:48)
--- NOTE | 2016-08-24 12:18 | PDOC ---
CARDIO Progress Notes Date and Time Date of Service 08/24/2016 Time of Evaluation 1215 Subjective Subjective: No Chest Pain, No shortness of breath, No Palpitations, Other ( sitting no SOA) Vitals Vitals Vital Signs Date Time Temp Pulse Resp B/P (MAP) Pulse Ox O2 Delivery O2 Flow Rate FiO2 08/24/16 11:52 Nasal Cannula 2.0 08/24/16 11:00 98.1 101 16 87/58 (68) 91 98.1 Weight Weight [ ] Input and Output Intake and Output Intake and Output 08/24/16 07:00 Intake Total 1000 ml Output Total 248 ml Balance 752 ml Intake Oral 1000 ml Output Urine Total 248 ml Laboratory Labs Laboratory Tests Test 08/24/16 04:05 08/24/16 04:25 White Blood Count 6.4 x10^3/uL (4.0-11.0) Red Blood Count 4.30 x10^6/uL (3.50-5.40) Hemoglobin 9.7 g/dL (12.0-15.5) Hematocrit 32.0 % (36.0-47.0) Mean Corpuscular Volume 74 fL (79-100) Mean Corpuscular Hemoglobin 23 pg (25-35) Mean Corpuscular Hemoglobin Concent 30 g/dL (31-37) Red Cell Distribution Width 18.9 % (11.5-14.5) Platelet Count 192 x10^3/uL (140-400) Neutrophils (%) (Auto) 62 % (31-73) Lymphocytes (%) (Auto) 21 % (24-48) Monocytes (%) (Auto) 13 % (0-9) Eosinophils (%) (Auto) 3 % (0-3) Basophils (%) (Auto) 1 % (0-3) Neutrophils # (Auto) 4.0 x10^3uL (1.8-7.7) Lymphocytes # (Auto) 1.4 x10^3/uL (1.0-4.8) Monocytes # (Auto) 0.8 x10^3/uL (0.0-1.1) Eosinophils # (Auto) 0.2 x10^3/uL (0.0-0.7) Basophils # (Auto) 0.1 x10^3/uL (0.0-0.2) Sodium Level 143 mmol/L (136-145) Potassium Level 3.8 mmol/L (3.5-5.1) Chloride Level 102 mmol/L (98-107) Carbon Dioxide Level 38 mmol/L (21-32) Anion Gap 3 (6-14) Blood Urea Nitrogen 10 mg/dL (7-20) Creatinine 0.6 mg/dL (0.6-1.0) Estimated GFR (Cockcroft-Gault) 131.4 Glucose Level 108 mg/dL (70-99) Calcium Level 8.3 mg/dL (8.5-10.1) Microbiology Micro Microbiology 08/22/16 Urine Culture - Preliminary, Resulted 08/22/16 Urine Culture Result 1 (BRIANA) - Preliminary, Resulted Physical Exam HEENT: Neck Supple W Full Motion Chest: Symmetric LUNGS: Other (basilar crackles) Heart: S1S2, RRR (SR) Abdomen: Soft N/T Extremities: No Calf Tenderness, Other (3+ bilateral LE pitting edema) Neurology: alert, oriented, follow commands Assessment Assessment 1. Acute on chronic respiratory failure with likely advancement of ILD with known SLE: 2. Acute on chronic diastolic CHF/ Cor Pulmonale 3. Hypotension: notable for significant diurese Recommendations 1. UOP 5L overnight without diuretics. Maintain hydration adequacy and avoid significant preload reduction 2. Unable to place on CCB at this time due to low BP. Will need future cardizem as she is prone atrial dysrhythmias with severely dilated RA 3. Recommend ECASA 81 mg daily. 4. Follow pulmonary recommendation 5. Supportive care. NICOLÁS SILVER APRN Aug 24, 2016 12:18
--- NOTE | 2016-08-24 13:30 | PDOC ---
PROGRESS NOTES Chief Complaint Chief Complaint 1. dyspnea, acute on chronic hypoxic resp failure 2/2 acute right side CHF and chronic ILD, PHTN 2. Bilateral LE edema with chf likely 3. Hx ILD, hypoxic respi failure acute on chronic, O2 dependent 4. Hx lupus lungs - off plaquenil 5. Trop leak 0.020 UTI, antonio vaginitis? low side BP PLAN: fu with card and pul echo SHowed EF 55%, but severe PHTN, right CHF leg US neg for DVT chest CT done showed ILD, similar to before hold lasix for now as per pulm, fu with card duoneb cont plaquinil dvt ppx pt may benefit with steroid treatment for ILD. also may need PHTN treatment. add ceftriaxone for UTI for now, fu ucx. add fluconazole x1. dc tmr if ok with specialist 6min walk today History of Present Illness History of Present Illness sob and bl leg edema better home o2 2l, now 3l Vitals Vitals Vital Signs Date Time Temp Pulse Resp B/P (MAP) Pulse Ox O2 Delivery O2 Flow Rate FiO2 08/24/16 11:52 Nasal Cannula 2.0 08/24/16 11:00 98.1 101 16 87/58 (68) 91 98.1 Physical Exam General: Alert, Oriented X3 Heart: Regular rate, Normal S1, Normal S2 Lungs: Crackles (bases) Abdomen: Normal bowel sounds Extremities: No clubbing, Other (2+ edema) Skin: No rashes Labs LABS Laboratory Tests Test 08/24/16 04:05 08/24/16 04:25 White Blood Count 6.4 x10^3/uL (4.0-11.0) Red Blood Count 4.30 x10^6/uL (3.50-5.40) Hemoglobin 9.7 g/dL (12.0-15.5) Hematocrit 32.0 % (36.0-47.0) Mean Corpuscular Volume 74 fL (79-100) Mean Corpuscular Hemoglobin 23 pg (25-35) Mean Corpuscular Hemoglobin Concent 30 g/dL (31-37) Red Cell Distribution Width 18.9 % (11.5-14.5) Platelet Count 192 x10^3/uL (140-400) Neutrophils (%) (Auto) 62 % (31-73) Lymphocytes (%) (Auto) 21 % (24-48) Monocytes (%) (Auto) 13 % (0-9) Eosinophils (%) (Auto) 3 % (0-3) Basophils (%) (Auto) 1 % (0-3) Neutrophils # (Auto) 4.0 x10^3uL (1.8-7.7) Lymphocytes # (Auto) 1.4 x10^3/uL (1.0-4.8) Monocytes # (Auto) 0.8 x10^3/uL (0.0-1.1) Eosinophils # (Auto) 0.2 x10^3/uL (0.0-0.7) Basophils # (Auto) 0.1 x10^3/uL (0.0-0.2) Sodium Level 143 mmol/L (136-145) Potassium Level 3.8 mmol/L (3.5-5.1) Chloride Level 102 mmol/L (98-107) Carbon Dioxide Level 38 mmol/L (21-32) Anion Gap 3 (6-14) Blood Urea Nitrogen 10 mg/dL (7-20) Creatinine 0.6 mg/dL (0.6-1.0) Estimated GFR (Cockcroft-Gault) 131.4 Glucose Level 108 mg/dL (70-99) Calcium Level 8.3 mg/dL (8.5-10.1) Review of Systems Review of Systems no fever, chills, chest pain Comment Review of Relevant I have reviewed the following items ludmila (where applicable) has been applied. Labs Laboratory Tests Test 08/22/16 21:45 08/23/16 04:00 08/24/16 04:05 08/24/16 04:25 Urine Collection Type Unknown Urine Color Yellow Urine Clarity Cloudy Urine pH 8.0 Urine Specific [place] 1.015 Urine Protein Negative mg/dL (NEG-TRACE) Urine Glucose (UA) Negative mg/dL (NEG) Urine Ketones (Stick) Negative mg/dL (NEG) Urine Blood Negative (NEG) Urine Nitrite Negative (NEG) Urine Bilirubin Negative (NEG) Urine Urobilinogen Dipstick 1.0 mg/dL (0.2 mg/dL) Urine Leukocyte Esterase Large (NEG) Urine RBC Occ /HPF (0-2) Urine WBC 20-40 /HPF (0-4) Urine Squamous Epithelial Cells Mod /LPF Urine Bacteria Few /HPF (0-FEW) Urine Mucus Slight /LPF White Blood Count 5.8 x10^3/uL (4.0-11.0) 6.4 x10^3/uL (4.0-11.0) Red Blood Count 4.36 x10^6/uL (3.50-5.40) 4.30 x10^6/uL (3.50-5.40) Hemoglobin 9.8 g/dL (12.0-15.5) 9.7 g/dL (12.0-15.5) Hematocrit 32.3 % (36.0-47.0) 32.0 % (36.0-47.0) Mean Corpuscular Volume 74 fL (79-100) 74 fL (79-100) Mean Corpuscular Hemoglobin 23 pg (25-35) 23 pg (25-35) Mean Corpuscular Hemoglobin Concent 31 g/dL (31-37) 30 g/dL (31-37) Red Cell Distribution Width 19.1 % (11.5-14.5) 18.9 % (11.5-14.5) Platelet Count 189 x10^3/uL (140-400) 192 x10^3/uL (140-400) Neutrophils (%) (Auto) 59 % (31-73) 62 % (31-73) Lymphocytes (%) (Auto) 24 % (24-48) 21 % (24-48) Monocytes (%) (Auto) 14 % (0-9) 13 % (0-9) Eosinophils (%) (Auto) 3 % (0-3) 3 % (0-3) Basophils (%) (Auto) 1 % (0-3) 1 % (0-3) Neutrophils # (Auto) 3.4 x10^3uL (1.8-7.7) 4.0 x10^3uL (1.8-7.7) Lymphocytes # (Auto) 1.4 x10^3/uL (1.0-4.8) 1.4 x10^3/uL (1.0-4.8) Monocytes # (Auto) 0.8 x10^3/uL (0.0-1.1) 0.8 x10^3/uL (0.0-1.1) Eosinophils # (Auto) 0.2 x10^3/uL (0.0-0.7) 0.2 x10^3/uL (0.0-0.7) Basophils # (Auto) 0.0 x10^3/uL (0.0-0.2) 0.1 x10^3/uL (0.0-0.2) Sodium Level 144 mmol/L (136-145) 143 mmol/L (136-145) Potassium Level 3.7 mmol/L (3.5-5.1) 3.8 mmol/L (3.5-5.1) Chloride Level 104 mmol/L (98-107) 102 mmol/L (98-107) Carbon Dioxide Level 41 mmol/L (21-32) 38 mmol/L (21-32) Anion Gap (6-14) 3 (6-14) Blood Urea Nitrogen 11 mg/dL (7-20) 10 mg/dL (7-20) Creatinine 0.6 mg/dL (0.6-1.0) 0.6 mg/dL (0.6-1.0) Estimated GFR (Cockcroft-Gault) 131.4 131.4 Glucose Level 100 mg/dL (70-99) 108 mg/dL (70-99) Calcium Level 8.3 mg/dL (8.5-10.1) 8.3 mg/dL (8.5-10.1) Laboratory Tests Test 08/24/16 04:05 08/24/16 04:25 White Blood Count 6.4 x10^3/uL (4.0-11.0) Red Blood Count 4.30 x10^6/uL (3.50-5.40) Hemoglobin 9.7 g/dL (12.0-15.5) Hematocrit 32.0 % (36.0-47.0) Mean Corpuscular Volume 74 fL (79-100) Mean Corpuscular Hemoglobin 23 pg (25-35) Mean Corpuscular Hemoglobin Concent 30 g/dL (31-37) Red Cell Distribution Width 18.9 % (11.5-14.5) Platelet Count 192 x10^3/uL (140-400) Neutrophils (%) (Auto) 62 % (31-73) Lymphocytes (%) (Auto) 21 % (24-48) Monocytes (%) (Auto) 13 % (0-9) Eosinophils (%) (Auto) 3 % (0-3) Basophils (%) (Auto) 1 % (0-3) Neutrophils # (Auto) 4.0 x10^3uL (1.8-7.7) Lymphocytes # (Auto) 1.4 x10^3/uL (1.0-4.8) Monocytes # (Auto) 0.8 x10^3/uL (0.0-1.1) Eosinophils # (Auto) 0.2 x10^3/uL (0.0-0.7) Basophils # (Auto) 0.1 x10^3/uL (0.0-0.2) Sodium Level 143 mmol/L (136-145) Potassium Level 3.8 mmol/L (3.5-5.1) Chloride Level 102 mmol/L (98-107) Carbon Dioxide Level 38 mmol/L (21-32) Anion Gap 3 (6-14) Blood Urea Nitrogen 10 mg/dL (7-20) Creatinine 0.6 mg/dL (0.6-1.0) Estimated GFR (Cockcroft-Gault) 131.4 Glucose Level 108 mg/dL (70-99) Calcium Level 8.3 mg/dL (8.5-10.1) Microbiology 08/22/16 Urine Culture - Preliminary, Resulted 08/22/16 Urine Culture Result 1 (BRIANA) - Preliminary, Resulted Medications Current Medications Ondansetron HCl (Zofran) 4 mg PRN Q6HRS PRN IV NAUSEA/VOMITING 1ST CHOICE; Start 08/21/16 at 20:45; Stop 08/22/16 at 14:25; Status DC Prochlorperazine Edisylate (Compazine) 10 mg PRN Q6HRS PRN IV NAUSEA/VOMITING 2ND CHOICE; Start 08/21/16 at 20:45 Prochlorperazine (Compazine) 25 mg PRN Q12HR PRN [place] NAUSEA/VOMITING; Start at 20:45 Al Hydroxide/Mg Hydroxide (Mylanta Plus Xs) 30 ml PRN Q3HRS PRN PO HEARTBURN / GAS; Start 08/21/16 at 20:45 Calcium Carbonate/ Glycine (Tums) 500 mg PRN Q3HRS PRN PO UPSET STOMACH; Start 08/21/16 at 20:45 Oxycodone HCl (Roxicodone) 5 mg PRN Q3HRS PRN PO BREAKTHROUGH PAIN; Start 08/21 at 20:45 Morphine Sulfate 1 mg PRN Q1HR PRN IV PAIN; Start 08/21/16 at 20:45 Acetaminophen (Tylenol) 650 mg PRN Q6HRS PRN PO Headaches, Temp > 101.5F; Start 08/21/16 at 20:45 Ibuprofen (Motrin) 400 mg PRN Q6HRS PRN PO MILD PAIN; Start 08/21/16 at 20:45; Stop 08/22/16 at 10:51; Status DC Docusate Sodium (Colace) 100 mg BID PO ; Start 08/21/16 at 21:00 Magnesium Hydroxide (Milk Of Magnesia) 2,400 mg PRN Q12HR PRN PO CONSTIPATION; Start 08/21/16 at 20:45 Lactulose 20 gm PRN Q12HR PRN PO CONSTIPATION; Start 08/21/16 at 20:45 Bisacodyl (Dulcolax Supp) 10 mg PRN DAILY PRN [place] CONSTIPATION; Start 08/21/16 at 20:45 Enoxaparin Sodium (Lovenox 40mg Syringe) 40 mg Q24H SQ Last administered on 20:38; Start 08/21/16 at 21:00 Albuterol/ Ipratropium (Duoneb) 3 ml RTQID NEB Last administered on 08/24/16 11:51; Start 08/21/16 at 21:00 Hydroxychloroquine Sulfate (Plaquenil) 200 mg BID PO Last administered on 08:52; Start 08/21/16 at 21:00 Furosemide (Lasix) 40 mg DAILY IVP Last administered on 08/22/16 09:09; Start 08/22/16 at 09:00; Stop 08/22/16 at 11:56; Status DC Ondansetron HCl (Zofran) 4 mg PRN Q6HRS PRN IV NAUSEA/VOMITING 1ST CHOICE; Start 08/22/16 at 14:30 Albuterol Sulfate (Ventolin Neb Soln) 2.5 mg Q2HR PRN NEB SHORTNESS OF BREATH; Start 08/22/16 at 18:45 Guaifenesin/ Codeine Phosphate (Robitussin Ac) 5 ml PRN Q6HRS PRN PO COUGH Last administered on 08/24/16 08:52; Start 08/22/16 at 21:45 Ceftriaxone Sodium 1 gm/ Sodium Chloride 50 ml @ 100 mls/hr Q24H IV Last administered on 08/24/16 10:58; Start 08/23/16 at 11:00 Active Scripts Active Hydroxychloroquine Sulfate 200 Mg Tablet 200 Mg PO BID 30 Days Doxycycline Hyclate 100 Mg Tablet 100 Mg PO BID Doxycycline Hyclate 100 Mg Capsule 1 Cap PO BID Vitals/I & O Vital Sign - Last 24 Hours 08/23/16 08/23/16 08/23/16 08/23/16 14:50 16:17 19:00 19:20 Temp 98.7 98.0 98.7 98.0 Pulse 92 117 Resp 22 B/P (MAP) 93/56 (68) 101/66 (78) Pulse Ox 97 97 96 O2 Delivery Nasal Cannula Nasal Cannula Nasal Cannula Nasal Cannula O2 Flow Rate 3.0 3.0 3.0 3.0 08/23/16 08/23/16 08/24/16 08/24/16 19:37 23:00 02:56 07:00 Temp 98.8 98.6 97.7 98.8 98.6 97.7 Pulse 113 92 87 Resp 20 20 18 B/P (MAP) 100/62 (75) 91/56 (68) 90/60 (70) Pulse Ox 95 96 93 94 O2 Delivery Nasal Cannula Nasal Cannula Nasal Cannula Nasal Cannula O2 Flow Rate 3.0 3.0 3.0 2.0 08/24/16 08/24/16 08/24/16 08/24/16 07:33 07:50 11:00 11:52 Temp 98.1 98.1 Pulse 101 Resp 16 B/P (MAP) 87/58 (68) Pulse Ox 91 91 O2 Delivery Nasal Cannula Room Air Nasal Cannula Nasal Cannula O2 Flow Rate 2.0 2.0 2.0 Intake and Output 08/23/16 08/23/16 08/24/16 15:00 23:00 07:00 Intake Total 500 ml 500 ml Output Total 248 ml Balance 252 ml 500 ml GINA ALMAZAN MD Aug 24, 2016 13:30
[2016-08-24] MEDS ORDERED: FLUCONAZOLE 100 MG TABLET. PO ONE (14:00)
--- NOTE | 2016-08-24 14:13 | PDOC ---
PULMONARY PROGRESS NOTES Subjective no increase soa Vitals Vital Signs Date Time Temp Pulse Resp B/P (MAP) Pulse Ox O2 Delivery O2 Flow Rate FiO2 08/24/16 11:52 Nasal Cannula 2.0 08/24/16 11:00 98.1 101 16 87/58 (68) 91 98.1 General: Alert, No acute distress Lungs: Crackles (bases) Cardiovascular: S1, S2 Abdomen: Soft Extremities: Other (2+edema) Labs Laboratory Tests Test 08/22/16 21:45 08/23/16 04:00 08/24/16 04:05 08/24/16 04:25 Urine Collection Type Unknown Urine Color Yellow Urine Clarity Cloudy Urine pH 8.0 Urine Specific Parachute 1.015 Urine Protein Negative mg/dL (NEG-TRACE) Urine Glucose (UA) Negative mg/dL (NEG) Urine Ketones (Stick) Negative mg/dL (NEG) Urine Blood Negative (NEG) Urine Nitrite Negative (NEG) Urine Bilirubin Negative (NEG) Urine Urobilinogen Dipstick 1.0 mg/dL (0.2 mg/dL) Urine Leukocyte Esterase Large (NEG) Urine RBC Occ /HPF (0-2) Urine WBC 20-40 /HPF (0-4) Urine Squamous Epithelial Cells Mod /LPF Urine Bacteria Few /HPF (0-FEW) Urine Mucus Slight /LPF White Blood Count 5.8 x10^3/uL (4.0-11.0) 6.4 x10^3/uL (4.0-11.0) Red Blood Count 4.36 x10^6/uL (3.50-5.40) 4.30 x10^6/uL (3.50-5.40) Hemoglobin 9.8 g/dL (12.0-15.5) 9.7 g/dL (12.0-15.5) Hematocrit 32.3 % (36.0-47.0) 32.0 % (36.0-47.0) Mean Corpuscular Volume 74 fL (79-100) 74 fL (79-100) Mean Corpuscular Hemoglobin 23 pg (25-35) 23 pg (25-35) Mean Corpuscular Hemoglobin Concent 31 g/dL (31-37) 30 g/dL (31-37) Red Cell Distribution Width 19.1 % (11.5-14.5) 18.9 % (11.5-14.5) Platelet Count 189 x10^3/uL (140-400) 192 x10^3/uL (140-400) Neutrophils (%) (Auto) 59 % (31-73) 62 % (31-73) Lymphocytes (%) (Auto) 24 % (24-48) 21 % (24-48) Monocytes (%) (Auto) 14 % (0-9) 13 % (0-9) Eosinophils (%) (Auto) 3 % (0-3) 3 % (0-3) Basophils (%) (Auto) 1 % (0-3) 1 % (0-3) Neutrophils # (Auto) 3.4 x10^3uL (1.8-7.7) 4.0 x10^3uL (1.8-7.7) Lymphocytes # (Auto) 1.4 x10^3/uL (1.0-4.8) 1.4 x10^3/uL (1.0-4.8) Monocytes # (Auto) 0.8 x10^3/uL (0.0-1.1) 0.8 x10^3/uL (0.0-1.1) Eosinophils # (Auto) 0.2 x10^3/uL (0.0-0.7) 0.2 x10^3/uL (0.0-0.7) Basophils # (Auto) 0.0 x10^3/uL (0.0-0.2) 0.1 x10^3/uL (0.0-0.2) Sodium Level 144 mmol/L (136-145) 143 mmol/L (136-145) Potassium Level 3.7 mmol/L (3.5-5.1) 3.8 mmol/L (3.5-5.1) Chloride Level 104 mmol/L (98-107) 102 mmol/L (98-107) Carbon Dioxide Level 41 mmol/L (21-32) 38 mmol/L (21-32) Anion Gap (6-14) 3 (6-14) Blood Urea Nitrogen 11 mg/dL (7-20) 10 mg/dL (7-20) Creatinine 0.6 mg/dL (0.6-1.0) 0.6 mg/dL (0.6-1.0) Estimated GFR (Cockcroft-Gault) 131.4 131.4 Glucose Level 100 mg/dL (70-99) 108 mg/dL (70-99) Calcium Level 8.3 mg/dL (8.5-10.1) 8.3 mg/dL (8.5-10.1) Laboratory Tests Test 08/24/16 04:05 08/24/16 04:25 White Blood Count 6.4 x10^3/uL (4.0-11.0) Red Blood Count 4.30 x10^6/uL (3.50-5.40) Hemoglobin 9.7 g/dL (12.0-15.5) Hematocrit 32.0 % (36.0-47.0) Mean Corpuscular Volume 74 fL (79-100) Mean Corpuscular Hemoglobin 23 pg (25-35) Mean Corpuscular Hemoglobin Concent 30 g/dL (31-37) Red Cell Distribution Width 18.9 % (11.5-14.5) Platelet Count 192 x10^3/uL (140-400) Neutrophils (%) (Auto) 62 % (31-73) Lymphocytes (%) (Auto) 21 % (24-48) Monocytes (%) (Auto) 13 % (0-9) Eosinophils (%) (Auto) 3 % (0-3) Basophils (%) (Auto) 1 % (0-3) Neutrophils # (Auto) 4.0 x10^3uL (1.8-7.7) Lymphocytes # (Auto) 1.4 x10^3/uL (1.0-4.8) Monocytes # (Auto) 0.8 x10^3/uL (0.0-1.1) Eosinophils # (Auto) 0.2 x10^3/uL (0.0-0.7) Basophils # (Auto) 0.1 x10^3/uL (0.0-0.2) Sodium Level 143 mmol/L (136-145) Potassium Level 3.8 mmol/L (3.5-5.1) Chloride Level 102 mmol/L (98-107) Carbon Dioxide Level 38 mmol/L (21-32) Anion Gap 3 (6-14) Blood Urea Nitrogen 10 mg/dL (7-20) Creatinine 0.6 mg/dL (0.6-1.0) Estimated GFR (Cockcroft-Gault) 131.4 Glucose Level 108 mg/dL (70-99) Calcium Level 8.3 mg/dL (8.5-10.1) Medications Active Scripts Medications Dose Route/Sig Max Daily Dose Days Date Category Hydroxychloroquine Sulfate 200 Mg Tablet 200 Mg PO BID 30 11/06/15 Rx Doxycycline Hyclate 100 Mg Tablet 100 Mg PO BID 11/06/15 Rx Doxycycline Hyclate 100 Mg Capsule 1 Cap PO BID 11/06/15 Rx Impression . 1. Progressive dyspnea and hypoxic respiratory failure in a patient who has a diagnosis of interstitial lung disease and SLE, now comes in with severe leg edema , abdominal wall edema and bilateral interstitial infiltrates. Suspect that we may be dealing with progression of interstitial lung disease and acute right heart failure. 2. Abnormal chest x-ray with bilateral interstitial infiltrates. she had a CAT scan last year which showed bilateral interstitial and ground-glass infiltrates and also nodular infiltrates. This could be related to lupus interstitial lung disease however the possibility of sarcoidosis cannot be ruled out. The CT chest findings is not typical of idiopathic type pulmonary fibrosis. 3. Clinically less likely left heart failure . 4. Bilateral lower extremity edema suspect related to acute right heart failure. Her lower extremity dopplers do not show any significant DVT. 5. No significant history of tobacco use. 6. Severe pulmonary HTN, related to ILD/fibrosis Plan . add pred follow up in office d/c in am ok by me 6 min walk pft as outpt YOSSI CARY MD Aug 24, 2016 14:13
[2016-08-24] MEDS ORDERED: predniSONE 20 MG TABLET PO SCH (15:00)
[2016-08-24] MEDS ORDERED: predniSONE 10 MG TABLET PO SCH (15:03)
[2016-08-24] MEDS: predniSONE 10 MG TABLET PO SCH (17:53)
[2016-08-24] MEDS: ENOXAPARIN 40 MG/0.4 ML SYRINGE. SQ SCH (20:50)
[2016-08-25] MEDS: guaiFENesin/CODEINE 100mg/10mg 5 ML LIQUID PO PRN (02:28)
[2016-08-25 03:00] VITALS: BP 96/61
[2016-08-25 06:48] VITALS: BP 94/55
[2016-08-25] MEDS: IPRATRPIUM/ALBUTEROL 0.5/2.5MG 3 ML NEBU. NEB SCH ×2 (08:37→12:49)
[2016-08-25] MEDS: DOCUSATE SODIUM 100 MG CAPSULE. PO SCH (09:00)
[2016-08-25] MEDS: predniSONE 10 MG TABLET PO SCH (09:04)
[2016-08-25] MEDS: HYDROXYCHLOROQUINE 200 MG TABLET PO SCH (09:04)
[2016-08-25] MEDS ORDERED: CEFPODOXIME PROXETIL 100 MG TABLET. PO SCH (10:30)
[2016-08-25 11:00] VITALS: BP 111/74
[2016-08-25 15:00] VITALS: BP 108/74
[2016-08-25] MEDS ORDERED: PRED-220 PO (15:06)
[2016-08-25] MEDS ORDERED: ASPI-612 PO (15:06)
--- NOTE | 2016-08-25 15:10 | PDOC3 ---
Discharge Summary [facility] Date of Admission: Aug 21, 2016 Discharge Date: Aug 25, 2016 Admitting Diagnosis 1. dyspnea, acute on chronic hypoxic resp failure 2/2 acute right side CHF and chronic ILD, PHTN 2. Bilateral LE edema with chf likely 3. Hx ILD, hypoxic respi failure acute on chronic, O2 dependent 4. Hx lupus lungs - off plaquenil 5. Trop leak 0.020 UTI, antonio vaginitis, neg ucx low side BP severe PHTN right CHF Problems: CONSULTS card pulm Brief Hospital Course Ms. Menezes is a 46 old with chronic home o2 dependece, with ILD, lupus, comes for bl leg edema and sob. Echo showed EF ok, but severe PHTN, right chf. PT GOt lasix iv x2 days, BL leg edema better, but cannot give more diuretics given low side bp at 80-90s. CT showed similar pulmanory fibrosis. prednisone 30mg daily started from Pulm. dc home with nc 2L AT rest, 3l exertional. cont prednisone 30mg daily till see pulm. dc time 35min. General: Alert, Oriented X3 Heart: Regular rate, Normal S1, Normal S2 Lungs: Crackles (bases) Abdomen: Normal bowel sounds Extremities: No clubbing, Other (2+ edema) Skin: No rashes Patient History: FH: emphysema 32 MOTHER Family history: Diabetes mellitus (situation) 33 FATHER 32 MOTHER Family history: Hypertension (situation) 33 FATHER 32 MOTHER Problems: Disposition home CONDITION AT DISCHARGE: Improved Diet cardiac Scheduled Aspirin (Aspirin Ec), 81 MG PO DAILYWBKFT Hydroxychloroquine Sulfate (Hydroxychloroquine Sulfate), 200 MG PO BID Prednisone (Prednisone), 30 MG PO DAILY Discontinued Medications Doxycycline Hyclate (Doxycycline Hyclate), 1 CAP PO BID Doxycycline Hyclate (Doxycycline Hyclate), 100 MG PO BID Follow Up pulm in 2 weeks GINA ALMAZAN MD Aug 25, 2016 15:10
--- NOTE | 2016-08-25 15:23 | PDOC ---
PULMONARY PROGRESS NOTES Subjective feels better Vitals Vital Signs Date Time Temp Pulse Resp B/P (MAP) Pulse Ox O2 Delivery O2 Flow Rate FiO2 08/25/16 12:49 97 Nasal Cannula 3.0 08/25/16 11:00 99.0 92 44 111/74 (86) 99.0 General: Alert, No acute distress Lungs: Crackles (bases) Cardiovascular: S1, S2 Abdomen: Soft Extremities: Other (2+edema) Labs Laboratory Tests Test 08/24/16 04:05 08/24/16 04:25 White Blood Count 6.4 x10^3/uL (4.0-11.0) Red Blood Count 4.30 x10^6/uL (3.50-5.40) Hemoglobin 9.7 g/dL (12.0-15.5) Hematocrit 32.0 % (36.0-47.0) Mean Corpuscular Volume 74 fL (79-100) Mean Corpuscular Hemoglobin 23 pg (25-35) Mean Corpuscular Hemoglobin Concent 30 g/dL (31-37) Red Cell Distribution Width 18.9 % (11.5-14.5) Platelet Count 192 x10^3/uL (140-400) Neutrophils (%) (Auto) 62 % (31-73) Lymphocytes (%) (Auto) 21 % (24-48) Monocytes (%) (Auto) 13 % (0-9) Eosinophils (%) (Auto) 3 % (0-3) Basophils (%) (Auto) 1 % (0-3) Neutrophils # (Auto) 4.0 x10^3uL (1.8-7.7) Lymphocytes # (Auto) 1.4 x10^3/uL (1.0-4.8) Monocytes # (Auto) 0.8 x10^3/uL (0.0-1.1) Eosinophils # (Auto) 0.2 x10^3/uL (0.0-0.7) Basophils # (Auto) 0.1 x10^3/uL (0.0-0.2) Sodium Level 143 mmol/L (136-145) Potassium Level 3.8 mmol/L (3.5-5.1) Chloride Level 102 mmol/L (98-107) Carbon Dioxide Level 38 mmol/L (21-32) Anion Gap 3 (6-14) Blood Urea Nitrogen 10 mg/dL (7-20) Creatinine 0.6 mg/dL (0.6-1.0) Estimated GFR (Cockcroft-Gault) 131.4 Glucose Level 108 mg/dL (70-99) Calcium Level 8.3 mg/dL (8.5-10.1) Magnesium Level 2.0 mg/dL (1.8-2.4) Medications Active Scripts Medications Dose Route/Sig Max Daily Dose Days Date Category Hydroxychloroquine Sulfate 200 Mg Tablet 200 Mg PO BID 30 11/06/15 Rx Doxycycline Hyclate 100 Mg Tablet 100 Mg PO BID 11/06/15 Rx Doxycycline Hyclate 100 Mg Capsule 1 Cap PO BID 11/06/15 Rx Impression . 1. A/C RESP FAILURE MULTIFACTORIAL 2. Abnormal chest x-ray with bilateral interstitial infiltrates. she had a CAT scan last year which showed bilateral interstitial and ground-glass infiltrates and also nodular infiltrates. 3. Clinically less likely left heart failure . 4. Bilateral lower extremity edema suspect related to acute right heart failure. Her lower extremity Doppler do not show any significant DVT. 5. No significant history of tobacco use. 6. Severe pulmonary HTN, related to ILD/fibrosis Plan . PRED 30 TILL SEEN IN OFFICE RX WRITTEN OUT PT PFT YOSSI CARY MD Aug 25, 2016 15:23
[2016-08-25] MEDS ORDERED: FAMOTIDINE 20 MG TABLET. PO SCH (21:00)
[2016-08-26] MEDS ORDERED: ASPIRIN ENTERIC COATED 81 MG TABLET.DR. PO SCH (08:00)
--- NOTE | 2016-08-26 17:24 | RAD ---
APPROVED REPORT Bilateral Lower Extremity Venous Study for DVT Patient Location: IN-PATIENT Indications Lower Extremity Edema: Bilateral Vein Imaging (Right) CFV (R): Compressible SFJ (R): Compressible FEM (R): Compressible POP (R): Compressible DFV (R): Compressible PTV (R): Spontaneous GSV (R): Spontaneous Peroneals (R): Spontaneous Vein Imaging (Left) CFV (L): Compressible SFJ (L): Compressible FEM (L): Compressible POP (L): Compressible DFV (L): Compressible PTV (L): Spontaneous GSV (L): Spontaneous Peroneals (L): Spontaneous Doppler Evaluation (Right) CFV (R): Spontaneous POP (R):Spontaneous Doppler Evaluation (Left) CFV (L):Spontaneous POP (L):Spontaneous Findings Hernandez scale images of the right CFV, SFV, Prof Vein and Pop veins are limited but reveal compressible vessels. Color doppler and spectral imaging reveals normal flow patterns. The below knee vessels are not well visualized but demonstrate normal color flow. Hernandez scale images of the left CFV, SFV, Prof Vein and Pop veins are limited but reveal compressible v essels. Color doppler and spectral imaging reveals normal flow patterns. The below knee vessels are n ot well visualized. Critical Notification Critical Value: No <Conclusion> 1. No evidence of thrombus in the bilateral lower extremity deep veins above the knee. The left below knee veins were not well visualized.
== END 2016-08-25 16:30 | disposition home or self-care (01) | DRG 291 ==
LOC: 2 SOUTH 19:35
PROVIDERS: ADMIT Internal Medicine; ATTEND Internal Medicine
DX: I50.33 Acute on chronic diastolic (congestive) heart failure (principal); J96.21 Acute and chronic respiratory failure with hypoxia; J84.9 Interstitial pulmonary disease, unspecified; N39.0 Urinary tract infection, site not specified; D68.59 Other primary thrombophilia; I27.2 Other secondary pulmonary hypertension; M32.9 Systemic lupus erythematosus, unspecified; J44.9 Chronic obstructive pulmonary disease, unspecified; I73.00 Raynaud's syndrome without gangrene; I27.81 Cor pulmonale (chronic); D64.9 Anemia, unspecified; B37.9 Candidiasis, unspecified; M19.90 Unspecified osteoarthritis, unspecified site; I95.9 Hypotension, unspecified; K59.00 Constipation, unspecified; Z79.899 Other long term (current) drug therapy; Z87.01 Personal history of pneumonia (recurrent); Z83.3 Family history of diabetes mellitus; Z99.81 Dependence on supplemental oxygen; Z82.49 Family history of ischemic heart disease and other diseases of the circulatory system; Z79.1 Long term (current) use of non-steroidal anti-inflammatories (NSAID); Z79.2 Long term (current) use of antibiotics
CPT/HCPCS: 36415; 71250; 80048; 80061; 81001; 82550; 83735; 83880; 84100; 84443; 84484; 85007; 85027; 85610; 87086; 93306; 93970; 94250; 94640; 94760; C1887; J0696; J1650; J1940; J7512; J7620; 97110; 97116; 97530

== ENCOUNTER 2016-12-19 15:54 | Inpatient (IN) | payer OTHER ==
[~2016-12-19] VITALS: Ht 172.7 cm; Wt 71.5 kg
[~2016-12-19 15:54] MED LIST changes: +ASPI-612 PO; +PRED-220 PO
[2016-12-19 16:40] VITALS: BP 135/93
[2016-12-19] MEDS ORDERED: PNEUMOC CONJ VACC 23-VALENT 0.5 ML VIAL. VAX IM ONE (18:00)
[2016-12-19 19:30] VITALS: BP 103/71
--- NOTE | 2016-12-19 21:15 | HP ---
ADMIT DATE: 12/19/2016 CHIEF COMPLAINT: Shortness of breath. HISTORY OF PRESENT ILLNESS: The patient is a pleasant middle-aged female who has severe lupus. She has interstitial pulmonary fibrosis and bronchiectasis as well as heart failure. Today, she went to [facility] ER complaining of shortness of breath. She was noted to have acute on chronic systolic and diastolic heart failure and flare of her pulmonary disease as well as an elevated D-dimer. I have accepted the patient as a transfer. She is now being examined in room 440. PAST MEDICAL HISTORY: Lupus, CHF, interstitial lung disease. ALLERGIES: None. FAMILY HISTORY: Diabetes. SOCIAL HISTORY: She does not drink, smoke or take drugs. MEDICATIONS: Reviewed. REVIEW OF SYSTEMS: GENERAL: No history of weight change, weakness or fevers. SKIN: No bruising, hair changes or rashes. EYES: No blurred, double or loss of vision. NOSE AND THROAT: No history of nosebleeds, hoarseness or sore throat. HEART: No history of palpitations, chest pain or shortness of breath on exertion. LUNGS: She complains of shortness of breath. GASTROINTESTINAL: Denies changes in appetite, nausea, vomiting, diarrhea or constipation. GENITOURINARY: No history of frequency, urgency, hesitancy or nocturia. NEUROLOGIC: Denies history of numbness, tingling, tremor or weakness. PSYCHIATRIC: No history of panic, anxiety or depression. ENDOCRINE: No history of heat or cold intolerance, polyuria or polydipsia. EXTREMITIES: Denies muscle weakness, joint pain, pain on walking or stiffness. PHYSICAL EXAMINATION: VITAL SIGNS: Temperature afebrile, pulse 92, respirations 18, blood pressure 144/60. GENERAL: She is alert, cooperative. HEART: Normal S1, S2 with a 4/6 systolic ejection murmur. PULMONARY: Her lungs are diminished with crackles. ABDOMEN: Soft. EXTREMITIES: 2-3+ edema. ENDOCRINE: No thyromegaly. LYMPHATICS: No cervical nodes. HEMATOPOIETIC: No bruising. LABORATORY DATA: Pending. ASSESSMENT AND PLAN: Acute on chronic systolic and diastolic heart failure with progression of interstitial pulmonary disease from lupus and a slightly elevated D-dimer. The patient has been admitted. We will consult Cardiology, consult Pulmonary. DuoNebs, oxygen, intravenous Lasix. Continue home medicines. PROGNOSIS: Guarded. NIAL Kenney SMITH DO DR: Anam JOB#: [id number] / [id number]
[2016-12-19] MEDS: HYDROXYCHLOROQUINE 200 MG TABLET PO SCH (21:50)
[2016-12-19] MEDS: diphenhydrAMINE HCL 25 MG CAPSULE PO PRN (21:50)
[2016-12-19] MEDS: ENOXAPARIN 40 MG/0.4 ML SYRINGE. SQ SCH (21:51)
[2016-12-19] MEDS: ALBUTEROL SULFATE 2.5 MG/3 ML NEBU. NEB PRN (22:22)
[2016-12-19 23:08] VITALS: BP 114/81
[2016-12-20 03:29] VITALS: BP 113/82
[2016-12-20 05:29] LABS: BASO % 1 % (0-3); EOS % 2 % (0-3); HEMATOCRIT 35.5 % (36.0-47.0); LYMPH # 1.6 x10^3/uL (1.0-4.8); LYMPH % 28 % (24-48); MEAN CORPUSCULAR HEMOGLOBIN 25 pg (25-35); MEAN CORPUSCULAR HGB CONC 31 g/dL (31-37); MEAN CORPUSCULAR VOLUME 80 fL (79-100); MONO % 11 % (0-9); NEUT % 59 % (31-73); PLATELET COUNT 157 x10^3/uL (140-400); RED BLOOD COUNT 4.46 x10^6/uL (3.50-5.40); RED CELL DISTRIBUTION WIDTH 21.1 % (11.5-14.5); WHITE BLOOD COUNT 5.6 x10^3/uL (4.0-11.0)
[2016-12-20 06:21] LABS: ALBUMIN 2.8 g/dL (3.4-5.0); ALBUMIN/GLOBULIN RATIO 0.8 (1.0-1.7); CALCIUM 8.7 mg/dL (8.5-10.1); CREATININE 0.4 mg/dL (0.6-1.0); GFR 209.8; TOTAL BILIRUBIN 0.5 mg/dL (0.2-1.0); TOTAL PROTEIN 6.2 g/dL (6.4-8.2)
[2016-12-20 07:00] VITALS: BP 116/85
[2016-12-20] MEDS ORDERED: POTASSIUM CHLORIDE 20MEQ 50 ML IV SCH (09:00)
[2016-12-20] MEDS: ALBUTEROL SULFATE 2.5 MG/3 ML NEBU. NEB PRN ×2 (09:15→21:17)
[2016-12-20] MEDS: FUROSEMIDE 40 MG/4 ML VIAL. IVP SCH (10:24)
[2016-12-20] MEDS: ASPIRIN ENTERIC COATED 81 MG TABLET.DR. PO SCH (10:25)
[2016-12-20] MEDS: POTASSIUM CHLORIDE 20 MEQ TABLET.ER. PO SCH (10:25)
[2016-12-20] MEDS: HYDROXYCHLOROQUINE 200 MG TABLET PO SCH ×2 (10:25→21:46)
[2016-12-20 10:39] LABS: ANISOCYTOSIS PRESENT; PLT ESTIMATE ADEQUATE (ADEQUATE)
[2016-12-20] MEDS: predniSONE 10 MG TABLET PO SCH (10:53)
[2016-12-20 11:00] VITALS: BP 116/85
--- NOTE | 2016-12-20 12:33 | PDOC2 ---
CONSULT Date of Consult Date of Consult DATE: 12/20/16 TIME: 12:25 Reason for Consult Reason for Consult: SOB, diastolic heart failure Referring Physician Referring Physician: Dr. Castro Identification/Chief Complaint Chief Complaint SOB Problems: Source Source: Patient History of Present Illness Reason for Visit: The patient is a pleasant 46-year-old female who reports several days of increasing shortness of breath. She has been treated with pulmonary medications as is feeling significantly better today. Patient has a history of lupus, diastolic heart failure, interstitial lung disease and pulmonary hypertension. An echocardiogram from 08-22-16 showed an ejection fraction of 55-60%, increased right sided chamber size and pulmonary hypertension with a pulmonary artery pressure of greater than 70 mmHg. She states she's been feeling relatively well until the last several days. She denies any typical chest pain. Past Medical History Cardiovascular: No pertinent hx, Other (diastolic heart failure) Pulmonary: Asthma, Other (pulmonary HTN) CENTRAL NERVOUS SYSTEM: Other GI: No pertinent hx Heme/Onc: Anemia NOS Hepatobiliary: No pertinent hx Psych: No pertinent hx Musculoskeletal: Osteoarthritis, Other Rheumatologic: Other (Lupus) Infectious disease: No pertinent hx Renal/: No pertinent hx Endocrine: No pertinent hx Past Surgical History Past Surgical History: No pertinent history Family History Family History: Diabetes, Heart Disease, High Cholestrol, Hypertension Social History No ALCOHOL: none Drugs: None Lives: with Family Current Medications Current Medications Current Medications Enoxaparin Sodium (Lovenox 40mg Syringe) 40 mg Q24H SQ Last administered on 21:51; Start 12/19/16 at 21:00 Potassium Chloride 50 ml @ 50 mls/hr DAILY IV ; Start 12/20/16 at 09:00; Status UNV Furosemide (Lasix) 40 mg DAILY IVP Last administered on 12/20/16 10:24; Start 12/20/16 at 09:00 Aspirin (Ecotrin) 81 mg DAILYWBKFT PO Last administered on 12/20/16 10:25; Start 12/20/16 at 08:00 Hydroxychloroquine Sulfate (Plaquenil) 200 mg BID PO Last administered on 12/20 10:25; Start 12/19/16 at 21:00 Prednisone (Prednisone) 30 mg DAILY PO Last administered on 12/20/16 10:53; Start 12/20/16 at 09:00 Potassium Chloride (Klor-Con) 20 meq DAILYWBKFT PO Last administered on 10:25; Start 12/20/16 at 08:00 Pneumococcal Polyvalent Vaccine (Pneumovax 23) 0.5 ml ONCE ONCE VAX IM ; Start 12/19/16 at 18:00; Stop 12/19/16 at 18:01; Status DC Diphenhydramine HCl (Benadryl) 25 mg PRN Q6HRS PRN PO ITCHING Last administered on 12/19/16 21:50; Start 12/19/16 at 19:15 Albuterol Sulfate (Ventolin Neb Soln) 2.5 mg PRN Q4HRS PRN NEB SHORTNESS OF BREATH Last administered on 12/20/16 09:15; Start 12/19/16 at 22:00 Active Scripts Active Prednisone 10 Mg Tablet 30 Mg PO DAILY 30 Days Aspirin Ec (Aspirin) 81 Mg Tablet.dr 81 Mg PO DAILYWBKFT 30 Days Hydroxychloroquine Sulfate 200 Mg Tablet 200 Mg PO BID 30 Days Allergies Allergies: Coded Allergies: No Known Drug Allergies (Unverified , 11/04/15) ROS Respiratory: YES: Shortness of breath, SOB with excertion Physical Exam General: mild distress, moderate distress HEENT: Atraumatic Lungs: Other (Decreased breath sounds) Heart: Regular rate Abdomen: Normal bowel sounds Extremities: No clubbing Vitals VITALS Vital Signs Date Time Temp Pulse Resp B/P (MAP) Pulse Ox O2 Delivery O2 Flow Rate FiO2 12/20/16 09:17 94 Venturi Mask 15.0 12/20/16 07:00 96.6 87 18 116/85 (95) 96.6 Labs Labs Laboratory Tests Test 12/20/16 05:00 12/20/16 05:20 White Blood Count 5.6 x10^3/uL (4.0-11.0) Red Blood Count 4.46 x10^6/uL (3.50-5.40) Hemoglobin 11.0 g/dL (12.0-15.5) Hematocrit 35.5 % (36.0-47.0) Mean Corpuscular Volume 80 fL (79-100) Mean Corpuscular Hemoglobin 25 pg (25-35) Mean Corpuscular Hemoglobin Concent 31 g/dL (31-37) Red Cell Distribution Width 21.1 % (11.5-14.5) Platelet Count 157 x10^3/uL (140-400) Neutrophils (%) (Auto) 59 % (31-73) Lymphocytes (%) (Auto) 28 % (24-48) Monocytes (%) (Auto) 11 % (0-9) Eosinophils (%) (Auto) 2 % (0-3) Basophils (%) (Auto) 1 % (0-3) Neutrophils # (Auto) 3.3 x10^3uL (1.8-7.7) Lymphocytes # (Auto) 1.6 x10^3/uL (1.0-4.8) Monocytes # (Auto) 0.6 x10^3/uL (0.0-1.1) Eosinophils # (Auto) 0.1 x10^3/uL (0.0-0.7) Basophils # (Auto) 0.0 x10^3/uL (0.0-0.2) Platelet Estimate Adequate (ADEQUATE) Anisocytosis Present Sodium Level 143 mmol/L (136-145) Potassium Level 4.0 mmol/L (3.5-5.1) Chloride Level 102 mmol/L (98-107) Carbon Dioxide Level 38 mmol/L (21-32) Anion Gap 3 (6-14) Blood Urea Nitrogen 15 mg/dL (7-20) Creatinine 0.4 mg/dL (0.6-1.0) Estimated GFR (Cockcroft-Gault) 209.8 BUN/Creatinine Ratio 38 (6-20) Glucose Level 86 mg/dL (70-99) Calcium Level 8.7 mg/dL (8.5-10.1) Total Bilirubin 0.5 mg/dL (0.2-1.0) Aspartate Amino Transf (AST/SGOT) 16 U/L (15-37) Alanine Aminotransferase (ALT/SGPT) 17 U/L (14-59) Alkaline Phosphatase 52 U/L (46-116) Total Protein 6.2 g/dL (6.4-8.2) Albumin 2.8 g/dL (3.4-5.0) Albumin/Globulin Ratio 0.8 (1.0-1.7) Laboratory Tests Test 12/20/16 05:00 12/20/16 05:20 White Blood Count 5.6 x10^3/uL (4.0-11.0) Red Blood Count 4.46 x10^6/uL (3.50-5.40) Hemoglobin 11.0 g/dL (12.0-15.5) Hematocrit 35.5 % (36.0-47.0) Mean Corpuscular Volume 80 fL (79-100) Mean Corpuscular Hemoglobin 25 pg (25-35) Mean Corpuscular Hemoglobin Concent 31 g/dL (31-37) Red Cell Distribution Width 21.1 % (11.5-14.5) Platelet Count 157 x10^3/uL (140-400) Neutrophils (%) (Auto) 59 % (31-73) Lymphocytes (%) (Auto) 28 % (24-48) Monocytes (%) (Auto) 11 % (0-9) Eosinophils (%) (Auto) 2 % (0-3) Basophils (%) (Auto) 1 % (0-3) Neutrophils # (Auto) 3.3 x10^3uL (1.8-7.7) Lymphocytes # (Auto) 1.6 x10^3/uL (1.0-4.8) Monocytes # (Auto) 0.6 x10^3/uL (0.0-1.1) Eosinophils # (Auto) 0.1 x10^3/uL (0.0-0.7) Basophils # (Auto) 0.0 x10^3/uL (0.0-0.2) Platelet Estimate Adequate (ADEQUATE) Anisocytosis Present Sodium Level 143 mmol/L (136-145) Potassium Level 4.0 mmol/L (3.5-5.1) Chloride Level 102 mmol/L (98-107) Carbon Dioxide Level 38 mmol/L (21-32) Anion Gap 3 (6-14) Blood Urea Nitrogen 15 mg/dL (7-20) Creatinine 0.4 mg/dL (0.6-1.0) Estimated GFR (Cockcroft-Gault) 209.8 BUN/Creatinine Ratio 38 (6-20) Glucose Level 86 mg/dL (70-99) Calcium Level 8.7 mg/dL (8.5-10.1) Total Bilirubin 0.5 mg/dL (0.2-1.0) Aspartate Amino Transf (AST/SGOT) 16 U/L (15-37) Alanine Aminotransferase (ALT/SGPT) 17 U/L (14-59) Alkaline Phosphatase 52 U/L (46-116) Total Protein 6.2 g/dL (6.4-8.2) Albumin 2.8 g/dL (3.4-5.0) Albumin/Globulin Ratio 0.8 (1.0-1.7) Assessment/Plan Assessment/Plan 1. Exacerbation of pulmonary disease with underlying interstitial fibrosis and asthma. Feeling better post treatment. Pulmonary evaluation pending. 2. Pulmonary HTN. Continuing present medications. 3. Diastolic heart failure. Also improving. 4. Lupus. Continue present treatment. Thank you for allowing us to participate in the care of your patient. MARCO A ALVARENGA MD Dec 20, 2016 12:33
--- NOTE | 2016-12-20 13:25 | PDOC ---
PULMONARY PROGRESS NOTES Vitals Vital Signs Date Time Temp Pulse Resp B/P (MAP) Pulse Ox O2 Delivery O2 Flow Rate FiO2 12/20/16 09:17 94 Venturi Mask 15.0 12/20/16 07:00 96.6 87 18 116/85 (95) 96.6 General: Alert, No acute distress Lungs: Crackles Cardiovascular: S1, S2 Abdomen: Soft Extremities: Other Labs Laboratory Tests Test 12/20/16 05:00 12/20/16 05:20 White Blood Count 5.6 x10^3/uL (4.0-11.0) Red Blood Count 4.46 x10^6/uL (3.50-5.40) Hemoglobin 11.0 g/dL (12.0-15.5) Hematocrit 35.5 % (36.0-47.0) Mean Corpuscular Volume 80 fL (79-100) Mean Corpuscular Hemoglobin 25 pg (25-35) Mean Corpuscular Hemoglobin Concent 31 g/dL (31-37) Red Cell Distribution Width 21.1 % (11.5-14.5) Platelet Count 157 x10^3/uL (140-400) Neutrophils (%) (Auto) 59 % (31-73) Lymphocytes (%) (Auto) 28 % (24-48) Monocytes (%) (Auto) 11 % (0-9) Eosinophils (%) (Auto) 2 % (0-3) Basophils (%) (Auto) 1 % (0-3) Neutrophils # (Auto) 3.3 x10^3uL (1.8-7.7) Lymphocytes # (Auto) 1.6 x10^3/uL (1.0-4.8) Monocytes # (Auto) 0.6 x10^3/uL (0.0-1.1) Eosinophils # (Auto) 0.1 x10^3/uL (0.0-0.7) Basophils # (Auto) 0.0 x10^3/uL (0.0-0.2) Platelet Estimate Adequate (ADEQUATE) Anisocytosis Present Sodium Level 143 mmol/L (136-145) Potassium Level 4.0 mmol/L (3.5-5.1) Chloride Level 102 mmol/L (98-107) Carbon Dioxide Level 38 mmol/L (21-32) Anion Gap 3 (6-14) Blood Urea Nitrogen 15 mg/dL (7-20) Creatinine 0.4 mg/dL (0.6-1.0) Estimated GFR (Cockcroft-Gault) 209.8 BUN/Creatinine Ratio 38 (6-20) Glucose Level 86 mg/dL (70-99) Calcium Level 8.7 mg/dL (8.5-10.1) Total Bilirubin 0.5 mg/dL (0.2-1.0) Aspartate Amino Transf (AST/SGOT) 16 U/L (15-37) Alanine Aminotransferase (ALT/SGPT) 17 U/L (14-59) Alkaline Phosphatase 52 U/L (46-116) Total Protein 6.2 g/dL (6.4-8.2) Albumin 2.8 g/dL (3.4-5.0) Albumin/Globulin Ratio 0.8 (1.0-1.7) Laboratory Tests Test 12/20/16 05:00 12/20/16 05:20 White Blood Count 5.6 x10^3/uL (4.0-11.0) Red Blood Count 4.46 x10^6/uL (3.50-5.40) Hemoglobin 11.0 g/dL (12.0-15.5) Hematocrit 35.5 % (36.0-47.0) Mean Corpuscular Volume 80 fL (79-100) Mean Corpuscular Hemoglobin 25 pg (25-35) Mean Corpuscular Hemoglobin Concent 31 g/dL (31-37) Red Cell Distribution Width 21.1 % (11.5-14.5) Platelet Count 157 x10^3/uL (140-400) Neutrophils (%) (Auto) 59 % (31-73) Lymphocytes (%) (Auto) 28 % (24-48) Monocytes (%) (Auto) 11 % (0-9) Eosinophils (%) (Auto) 2 % (0-3) Basophils (%) (Auto) 1 % (0-3) Neutrophils # (Auto) 3.3 x10^3uL (1.8-7.7) Lymphocytes # (Auto) 1.6 x10^3/uL (1.0-4.8) Monocytes # (Auto) 0.6 x10^3/uL (0.0-1.1) Eosinophils # (Auto) 0.1 x10^3/uL (0.0-0.7) Basophils # (Auto) 0.0 x10^3/uL (0.0-0.2) Platelet Estimate Adequate (ADEQUATE) Anisocytosis Present Sodium Level 143 mmol/L (136-145) Potassium Level 4.0 mmol/L (3.5-5.1) Chloride Level 102 mmol/L (98-107) Carbon Dioxide Level 38 mmol/L (21-32) Anion Gap 3 (6-14) Blood Urea Nitrogen 15 mg/dL (7-20) Creatinine 0.4 mg/dL (0.6-1.0) Estimated GFR (Cockcroft-Gault) 209.8 BUN/Creatinine Ratio 38 (6-20) Glucose Level 86 mg/dL (70-99) Calcium Level 8.7 mg/dL (8.5-10.1) Total Bilirubin 0.5 mg/dL (0.2-1.0) Aspartate Amino Transf (AST/SGOT) 16 U/L (15-37) Alanine Aminotransferase (ALT/SGPT) 17 U/L (14-59) Alkaline Phosphatase 52 U/L (46-116) Total Protein 6.2 g/dL (6.4-8.2) Albumin 2.8 g/dL (3.4-5.0) Albumin/Globulin Ratio 0.8 (1.0-1.7) Medications Active Scripts Medications Dose Route/Sig Max Daily Dose Days Date Category Prednisone 10 Mg Tablet 30 Mg PO DAILY 30 08/25/16 Rx Aspirin Ec (Aspirin) 81 Mg Tablet.dr 81 Mg PO DAILYWBKFT 08/25/16 Rx Hydroxychloroquine Sulfate 200 Mg Tablet 200 Mg PO BID 11/06/15 Rx Impression . NOTE DICTATED AGREE WITH RX FOR ACUTE COR PULMONALE SEE MY NOTE YOSSI CARY MD Dec 20, 2016 13:25
--- NOTE | 2016-12-20 14:05 | PDOC ---
PROGRESS NOTES Chief Complaint Chief Complaint Interstitial pulmonary fibrosis Bronchiectasis Lupus CHF History of Present Illness History of Present Illness Pt is a pleasant 46 year old female who presents with interstitial pulmonary fibrosis and bronchiectasis. She has a hx of Lupus and CHF. Pt was seen at bedside in [facility]. Pt is being followed by cardiology and pulmonology. Will continue ventimask, nebulizers, and lasix. Will continue to monitor. Vitals Vitals Vital Signs Date Time Temp Pulse Resp B/P (MAP) Pulse Ox O2 Delivery O2 Flow Rate FiO2 12/20/16 11:00 95.9 99 18 116/85 (95) 91 Venturi Mask 95.9 12/20/16 09:17 15.0 Physical Exam General: Alert, Oriented X3, Cooperative, mild distress, moderate distress Heart: Regular rate, Normal S1, Normal S2, Other (Mitral murmur) Lungs: Crackles Abdomen: Normal bowel sounds Extremities: No clubbing, No edema Skin: No rashes, No breakdown Labs LABS Laboratory Tests Test 12/20/16 05:00 12/20/16 05:20 White Blood Count 5.6 x10^3/uL (4.0-11.0) Red Blood Count 4.46 x10^6/uL (3.50-5.40) Hemoglobin 11.0 g/dL (12.0-15.5) Hematocrit 35.5 % (36.0-47.0) Mean Corpuscular Volume 80 fL (79-100) Mean Corpuscular Hemoglobin 25 pg (25-35) Mean Corpuscular Hemoglobin Concent 31 g/dL (31-37) Red Cell Distribution Width 21.1 % (11.5-14.5) Platelet Count 157 x10^3/uL (140-400) Neutrophils (%) (Auto) 59 % (31-73) Lymphocytes (%) (Auto) 28 % (24-48) Monocytes (%) (Auto) 11 % (0-9) Eosinophils (%) (Auto) 2 % (0-3) Basophils (%) (Auto) 1 % (0-3) Neutrophils # (Auto) 3.3 x10^3uL (1.8-7.7) Lymphocytes # (Auto) 1.6 x10^3/uL (1.0-4.8) Monocytes # (Auto) 0.6 x10^3/uL (0.0-1.1) Eosinophils # (Auto) 0.1 x10^3/uL (0.0-0.7) Basophils # (Auto) 0.0 x10^3/uL (0.0-0.2) Platelet Estimate Adequate (ADEQUATE) Anisocytosis Present Sodium Level 143 mmol/L (136-145) Potassium Level 4.0 mmol/L (3.5-5.1) Chloride Level 102 mmol/L (98-107) Carbon Dioxide Level 38 mmol/L (21-32) Anion Gap 3 (6-14) Blood Urea Nitrogen 15 mg/dL (7-20) Creatinine 0.4 mg/dL (0.6-1.0) Estimated GFR (Cockcroft-Gault) 209.8 BUN/Creatinine Ratio 38 (6-20) Glucose Level 86 mg/dL (70-99) Calcium Level 8.7 mg/dL (8.5-10.1) Total Bilirubin 0.5 mg/dL (0.2-1.0) Aspartate Amino Transf (AST/SGOT) 16 U/L (15-37) Alanine Aminotransferase (ALT/SGPT) 17 U/L (14-59) Alkaline Phosphatase 52 U/L (46-116) Total Protein 6.2 g/dL (6.4-8.2) Albumin 2.8 g/dL (3.4-5.0) Albumin/Globulin Ratio 0.8 (1.0-1.7) Review of Systems Review of Systems Pt complains of SOB and fatigue. Assessment and Plan Assessmemt and Plan Assessment: Interstitial pulmonary fibrosis Bronchiectasis Lupus CHF Plan: Continue ventimask Continue nebulizers Continue lasix Continue home meds PT/OT Recheck labs Appreciate subspecialty input Problems: Comment Review of Relevant I have reviewed the following items ludmila (where applicable) has been applied. Labs Laboratory Tests Test 12/20/16 05:00 12/20/16 05:20 White Blood Count 5.6 x10^3/uL (4.0-11.0) Red Blood Count 4.46 x10^6/uL (3.50-5.40) Hemoglobin 11.0 g/dL (12.0-15.5) Hematocrit 35.5 % (36.0-47.0) Mean Corpuscular Volume 80 fL (79-100) Mean Corpuscular Hemoglobin 25 pg (25-35) Mean Corpuscular Hemoglobin Concent 31 g/dL (31-37) Red Cell Distribution Width 21.1 % (11.5-14.5) Platelet Count 157 x10^3/uL (140-400) Neutrophils (%) (Auto) 59 % (31-73) Lymphocytes (%) (Auto) 28 % (24-48) Monocytes (%) (Auto) 11 % (0-9) Eosinophils (%) (Auto) 2 % (0-3) Basophils (%) (Auto) 1 % (0-3) Neutrophils # (Auto) 3.3 x10^3uL (1.8-7.7) Lymphocytes # (Auto) 1.6 x10^3/uL (1.0-4.8) Monocytes # (Auto) 0.6 x10^3/uL (0.0-1.1) Eosinophils # (Auto) 0.1 x10^3/uL (0.0-0.7) Basophils # (Auto) 0.0 x10^3/uL (0.0-0.2) Platelet Estimate Adequate (ADEQUATE) Anisocytosis Present Sodium Level 143 mmol/L (136-145) Potassium Level 4.0 mmol/L (3.5-5.1) Chloride Level 102 mmol/L (98-107) Carbon Dioxide Level 38 mmol/L (21-32) Anion Gap 3 (6-14) Blood Urea Nitrogen 15 mg/dL (7-20) Creatinine 0.4 mg/dL (0.6-1.0) Estimated GFR (Cockcroft-Gault) 209.8 BUN/Creatinine Ratio 38 (6-20) Glucose Level 86 mg/dL (70-99) Calcium Level 8.7 mg/dL (8.5-10.1) Total Bilirubin 0.5 mg/dL (0.2-1.0) Aspartate Amino Transf (AST/SGOT) 16 U/L (15-37) Alanine Aminotransferase (ALT/SGPT) 17 U/L (14-59) Alkaline Phosphatase 52 U/L (46-116) Total Protein 6.2 g/dL (6.4-8.2) Albumin 2.8 g/dL (3.4-5.0) Albumin/Globulin Ratio 0.8 (1.0-1.7) Laboratory Tests Test 12/20/16 05:00 12/20/16 05:20 White Blood Count 5.6 x10^3/uL (4.0-11.0) Red Blood Count 4.46 x10^6/uL (3.50-5.40) Hemoglobin 11.0 g/dL (12.0-15.5) Hematocrit 35.5 % (36.0-47.0) Mean Corpuscular Volume 80 fL (79-100) Mean Corpuscular Hemoglobin 25 pg (25-35) Mean Corpuscular Hemoglobin Concent 31 g/dL (31-37) Red Cell Distribution Width 21.1 % (11.5-14.5) Platelet Count 157 x10^3/uL (140-400) Neutrophils (%) (Auto) 59 % (31-73) Lymphocytes (%) (Auto) 28 % (24-48) Monocytes (%) (Auto) 11 % (0-9) Eosinophils (%) (Auto) 2 % (0-3) Basophils (%) (Auto) 1 % (0-3) Neutrophils # (Auto) 3.3 x10^3uL (1.8-7.7) Lymphocytes # (Auto) 1.6 x10^3/uL (1.0-4.8) Monocytes # (Auto) 0.6 x10^3/uL (0.0-1.1) Eosinophils # (Auto) 0.1 x10^3/uL (0.0-0.7) Basophils # (Auto) 0.0 x10^3/uL (0.0-0.2) Platelet Estimate Adequate (ADEQUATE) Anisocytosis Present Sodium Level 143 mmol/L (136-145) Potassium Level 4.0 mmol/L (3.5-5.1) Chloride Level 102 mmol/L (98-107) Carbon Dioxide Level 38 mmol/L (21-32) Anion Gap 3 (6-14) Blood Urea Nitrogen 15 mg/dL (7-20) Creatinine 0.4 mg/dL (0.6-1.0) Estimated GFR (Cockcroft-Gault) 209.8 BUN/Creatinine Ratio 38 (6-20) Glucose Level 86 mg/dL (70-99) Calcium Level 8.7 mg/dL (8.5-10.1) Total Bilirubin 0.5 mg/dL (0.2-1.0) Aspartate Amino Transf (AST/SGOT) 16 U/L (15-37) Alanine Aminotransferase (ALT/SGPT) 17 U/L (14-59) Alkaline Phosphatase 52 U/L (46-116) Total Protein 6.2 g/dL (6.4-8.2) Albumin 2.8 g/dL (3.4-5.0) Albumin/Globulin Ratio 0.8 (1.0-1.7) Medications Current Medications Enoxaparin Sodium (Lovenox 40mg Syringe) 40 mg Q24H SQ Last administered on 21:51; Start 12/19/16 at 21:00 Potassium Chloride 50 ml @ 50 mls/hr DAILY IV ; Start 12/20/16 at 09:00; Status UNV Furosemide (Lasix) 40 mg DAILY IVP Last administered on 12/20/16 10:24; Start 12/20/16 at 09:00 Aspirin (Ecotrin) 81 mg DAILYWBKFT PO Last administered on 12/20/16 10:25; Start 12/20/16 at 08:00 Hydroxychloroquine Sulfate (Plaquenil) 200 mg BID PO Last administered on 12/20 10:25; Start 12/19/16 at 21:00 Prednisone (Prednisone) 30 mg DAILY PO Last administered on 12/20/16 10:53; Start 12/20/16 at 09:00 Potassium Chloride (Klor-Con) 20 meq DAILYWBKFT PO Last administered on 10:25; Start 12/20/16 at 08:00 Pneumococcal Polyvalent Vaccine (Pneumovax 23) 0.5 ml ONCE ONCE VAX IM ; Start 12/19/16 at 18:00; Stop 12/19/16 at 18:01; Status DC Diphenhydramine HCl (Benadryl) 25 mg PRN Q6HRS PRN PO ITCHING Last administered on 12/19/16 21:50; Start 12/19/16 at 19:15 Albuterol Sulfate (Ventolin Neb Soln) 2.5 mg PRN Q4HRS PRN NEB SHORTNESS OF BREATH Last administered on 12/20/16 09:15; Start 12/19/16 at 22:00 Active Scripts Active Prednisone 10 Mg Tablet 30 Mg PO DAILY 30 Days Aspirin Ec (Aspirin) 81 Mg Tablet.dr 81 Mg PO DAILYWBKFT 30 Days Hydroxychloroquine Sulfate 200 Mg Tablet 200 Mg PO BID 30 Days Vitals/I & O Vital Sign - Last 24 Hours 12/19/16 12/19/16 12/19/16 12/19/16 16:40 16:40 17:19 19:30 Temp 98.0 98.0 97.9 98.0 98.0 97.9 Pulse 94 94 111 Resp 16 16 18 B/P (MAP) 135/93 (107) 135/93 (107) 103/71 (82) Pulse Ox 94 94 86 O2 Delivery Nasal Cannula Nasal Cannula Nasal Cannula Nasal Cannula O2 Flow Rate 2.0 2.0 2.0 2.0 12/19/16 12/19/16 12/19/16 12/19/16 20:00 22:23 22:49 23:08 Temp 98.4 98.4 Pulse 103 Resp 18 B/P (MAP) 114/81 (92) Pulse Ox 92 95 97 O2 Delivery Nasal Cannula Nasal Cannula Venturi Mask Room Air O2 Flow Rate 2.0 3.0 15.0 2.0 12/20/16 12/20/16 12/20/16 12/20/16 03:29 07:00 09:17 11:00 Temp 98.4 96.6 95.9 98.4 96.6 95.9 Pulse 85 87 99 Resp 18 18 18 B/P (MAP) 113/82 (92) 116/85 (95) 116/85 (95) Pulse Ox 100 97 94 91 O2 Delivery Venturi Mask Venturi Mask Venturi Mask Venturi Mask O2 Flow Rate 15.0 MARCELLE SMITH III DO Dec 20, 2016 14:05
[2016-12-20 15:00] VITALS: BP 125/92
[2016-12-20 19:00] VITALS: BP 128/91
--- NOTE | 2016-12-20 21:08 | CONS ---
DATE OF CONSULTATION: 12/20/2016 ATTENDING PHYSICIAN: Loki Castro DO REASON FOR CONSULTATION: The patient is seen in Pulmonary consultation at the request of Dr. Castro for increasing shortness of air, hypoxemia. HISTORY OF PRESENT ILLNESS: The patient is a 46-year-old known to me from previous hospitalization. She has severe secondary pulmonary hypertension in the past. Her pulmonary artery pressures have been estimated at 70 secondary to lupus and interstitial lung disease. At home, she is not on a diuretic. She is on oxygen supplementation at 2 liters. She presented with increasing shortness of breath, saturations were in the 70s at [facility]. She was transferred to [facility]. The patient states that her shortness of air was slow when onset, not associated with chest pain or pressure. No fever, chills or productive cough. She does have underlying bronchiectasis, normally brings up some sputum. The amount of sputum that is expelled with color has not changed any. She is on albuterol p.r.n. She denies fever, chills. No wheezing. She is not on a steroid inhaler at home. PAST MEDICAL HISTORY: Secondary pulmonary hypertension as indicated above, lupus with interstitial lung disease, chronic respiratory failure. HOME MEDICATIONS LIST: Aspirin, hydroxychloroquine sulfate 200 daily, prednisone 10 mg daily. CURRENT MEDICATION: List was reviewed. REVIEW OF SYSTEMS: GENERAL: No changes in weight, no fever or chills. SKIN: No easy bruisability. No skin changes. HEENT: No difficulty swallowing. CARDIOPULMONARY: As indicated above. GASTROINTESTINAL: No nausea, vomiting, diarrhea. GENITOURINARY: No frequency or burning upon urination. MUSCULOSKELETAL: No localized muscle aches or joint pain. NEUROLOGIC: No headaches, diplopia or blurred vision. SOCIAL HISTORY: She has never smoked. Denies any alcohol intake. PHYSICAL EXAMINATION: GENERAL: The patient was in no respiratory distress. HEENT: Eyes, the sclerae were nonicteric. NECK: Jugular venous distention was not elevated. No lymphadenopathy. CHEST: Full expansion. LUNGS: Usual crackles in the bases. CARDIOVASCULAR: Regular rate and rhythm with S1, S2. No S3. ABDOMEN: Soft, nontender, nondistended. EXTREMITIES: No clubbing, cyanosis or edema. LABORATORY DATA: Reviewed. White count was normal. Hemoglobin and hematocrit were noted. Electrolytes were noted. BUN and creatinine were noted. Albumin was low. Total protein was low. Chest x-ray is pending. IMPRESSION: 1. Oxtwd-rn-wklhwiq respiratory failure, present upon admission. 2. Acute cor pulmonale 3. Severe secondary pulmonary hypertension. 4. Lupus with interstitial lung disease. 5. Moderate to severe protein malnutrition, present upon admission. 6. Immunocompromise is a consequence of chronic prednisone use and lupus. PLAN: 1. We will continue current diuresis. 2. Repeat echocardiogram. 3. Discussed options of possible referral to Dr. Perez for treatment of her pulmonary hypertension, I will set this up as an outpatient. 4. No need for antibiotics or steroids. 5. Continue p.r.n. nebulized treatments. 6. DVT prophylaxis. 7. Possible home daily diuresis once discharged. I do appreciate the privilege in sharing in the patient's care. YOSSI CARY MD DR: YOHANNES/jane JOB#: [id number] / [id number]
[2016-12-20] MEDS: diphenhydrAMINE HCL 25 MG CAPSULE PO PRN (21:46)
[2016-12-20] MEDS: ENOXAPARIN 40 MG/0.4 ML SYRINGE. SQ SCH (21:47)
[2016-12-20 23:00] VITALS: BP 126/77
[2016-12-21 01:02] LABS: BILIRUBIN,URINE NEGATIVE (NEG); GLUCOSE,URINE NEGATIVE (NEG); NITRITE,URINE NEGATIVE (NEG); PROTEIN,URINE 30 mg/dL (NEG-TRACE)
[2016-12-21 01:12] LABS: WBC,URINE TNTC /HPF (0-4)
[2016-12-21 01:13] LABS: BACTERIA,URINE FEW /HPF (0-FEW); SQUAMOUS EPITHELIAL CELL,UR MOD /LPF
[2016-12-21 03:00] VITALS: BP 106/79
[2016-12-21 05:26] LABS: BASO % 1 % (0-3); EOS % 1 % (0-3); HEMOGLOBIN 11.6 g/dL (12.0-15.5); LYMPH # 1.9 x10^3/uL (1.0-4.8); LYMPH % 29 % (24-48); MEAN CORPUSCULAR HEMOGLOBIN 24 pg (25-35); MEAN CORPUSCULAR HGB CONC 31 g/dL (31-37); MEAN CORPUSCULAR VOLUME 80 fL (79-100); MONO % 11 % (0-9); NEUT % 59 % (31-73); PLATELET COUNT 188 x10^3/uL (140-400); RED BLOOD COUNT 4.77 x10^6/uL (3.50-5.40); WHITE BLOOD COUNT 6.7 x10^3/uL (4.0-11.0)
[2016-12-21 05:56] LABS: CALCIUM 9.2 mg/dL (8.5-10.1); CREATININE 0.5 mg/dL (0.6-1.0); GFR 162.2; POTASSIUM 4.2 mmol/L (3.5-5.1)
[2016-12-21 07:00] VITALS: BP 105/76
--- NOTE | 2016-12-21 08:51 | PDOC ---
PULMONARY PROGRESS NOTES Subjective slightly better on Vitals Vital Signs Date Time Temp Pulse Resp B/P (MAP) Pulse Ox O2 Delivery O2 Flow Rate FiO2 12/21/16 03:00 97.7 106 18 106/79 (88) 100 Venturi Mask 2.0 97.7 General: Alert, No acute distress Lungs: Crackles (bases) Cardiovascular: S1, S2 Abdomen: Soft Extremities: Other (2+edema) Skin: Warm Labs Laboratory Tests Test 12/20/16 05:00 12/20/16 05:20 12/20/16 21:40 12/21/16 05:00 White Blood Count 5.6 x10^3/uL (4.0-11.0) 6.7 x10^3/uL (4.0-11.0) Red Blood Count 4.46 x10^6/uL (3.50-5.40) 4.77 x10^6/uL (3.50-5.40) Hemoglobin 11.0 g/dL (12.0-15.5) 11.6 g/dL (12.0-15.5) Hematocrit 35.5 % (36.0-47.0) 38.0 % (36.0-47.0) Mean Corpuscular Volume 80 fL (79-100) 80 fL (79-100) Mean Corpuscular Hemoglobin 25 pg (25-35) 24 pg (25-35) Mean Corpuscular Hemoglobin Concent 31 g/dL (31-37) 31 g/dL (31-37) Red Cell Distribution Width 21.1 % (11.5-14.5) 21.0 % (11.5-14.5) Platelet Count 157 x10^3/uL (140-400) 188 x10^3/uL (140-400) Neutrophils (%) (Auto) 59 % (31-73) 59 % (31-73) Lymphocytes (%) (Auto) 28 % (24-48) 29 % (24-48) Monocytes (%) (Auto) 11 % (0-9) 11 % (0-9) Eosinophils (%) (Auto) 2 % (0-3) 1 % (0-3) Basophils (%) (Auto) 1 % (0-3) 1 % (0-3) Neutrophils # (Auto) 3.3 x10^3uL (1.8-7.7) 3.9 x10^3uL (1.8-7.7) Lymphocytes # (Auto) 1.6 x10^3/uL (1.0-4.8) 1.9 x10^3/uL (1.0-4.8) Monocytes # (Auto) 0.6 x10^3/uL (0.0-1.1) 0.7 x10^3/uL (0.0-1.1) Eosinophils # (Auto) 0.1 x10^3/uL (0.0-0.7) 0.1 x10^3/uL (0.0-0.7) Basophils # (Auto) 0.0 x10^3/uL (0.0-0.2) 0.0 x10^3/uL (0.0-0.2) Platelet Estimate Adequate (ADEQUATE) Anisocytosis Present Sodium Level 143 mmol/L (136-145) 142 mmol/L (136-145) Potassium Level 4.0 mmol/L (3.5-5.1) 4.2 mmol/L (3.5-5.1) Chloride Level 102 mmol/L (98-107) 101 mmol/L (98-107) Carbon Dioxide Level 38 mmol/L (21-32) 39 mmol/L (21-32) Anion Gap 3 (6-14) 2 (6-14) Blood Urea Nitrogen 15 mg/dL (7-20) 12 mg/dL (7-20) Creatinine 0.4 mg/dL (0.6-1.0) 0.5 mg/dL (0.6-1.0) Estimated GFR (Cockcroft-Gault) 209.8 162.2 BUN/Creatinine Ratio 38 (6-20) Glucose Level 86 mg/dL (70-99) 108 mg/dL (70-99) Calcium Level 8.7 mg/dL (8.5-10.1) 9.2 mg/dL (8.5-10.1) Total Bilirubin 0.5 mg/dL (0.2-1.0) Aspartate Amino Transf (AST/SGOT) 16 U/L (15-37) Alanine Aminotransferase (ALT/SGPT) 17 U/L (14-59) Alkaline Phosphatase 52 U/L (46-116) Total Protein 6.2 g/dL (6.4-8.2) Albumin 2.8 g/dL (3.4-5.0) Albumin/Globulin Ratio 0.8 (1.0-1.7) Urine Collection Type Unknown Urine Color Yellow Urine Clarity Cloudy Urine pH 6.0 Urine Specific [place] 1.020 Urine Protein 30 mg/dL (NEG-TRACE) Urine Glucose (UA) Negative mg/dL (NEG) Urine Ketones (Stick) Negative mg/dL (NEG) Urine Blood Moderate (NEG) Urine Nitrite Negative (NEG) Urine Bilirubin Negative (NEG) Urine Urobilinogen Dipstick 1.0 mg/dL (0.2 mg/dL) Urine Leukocyte Esterase Large (NEG) Urine RBC 3-5 /HPF (0-2) Urine WBC Tntc /HPF (0-4) Urine Squamous Epithelial Cells Mod /LPF Urine Bacteria Few /HPF (0-FEW) Urine Mucus Mod /LPF Laboratory Tests Test 12/20/16 21:40 12/21/16 05:00 Urine Collection Type Unknown Urine Color Yellow Urine Clarity Cloudy Urine pH 6.0 Urine Specific [place] 1.020 Urine Protein 30 mg/dL (NEG-TRACE) Urine Glucose (UA) Negative mg/dL (NEG) Urine Ketones (Stick) Negative mg/dL (NEG) Urine Blood Moderate (NEG) Urine Nitrite Negative (NEG) Urine Bilirubin Negative (NEG) Urine Urobilinogen Dipstick 1.0 mg/dL (0.2 mg/dL) Urine Leukocyte Esterase Large (NEG) Urine RBC 3-5 /HPF (0-2) Urine WBC Tntc /HPF (0-4) Urine Squamous Epithelial Cells Mod /LPF Urine Bacteria Few /HPF (0-FEW) Urine Mucus Mod /LPF White Blood Count 6.7 x10^3/uL (4.0-11.0) Red Blood Count 4.77 x10^6/uL (3.50-5.40) Hemoglobin 11.6 g/dL (12.0-15.5) Hematocrit 38.0 % (36.0-47.0) Mean Corpuscular Volume 80 fL (79-100) Mean Corpuscular Hemoglobin 24 pg (25-35) Mean Corpuscular Hemoglobin Concent 31 g/dL (31-37) Red Cell Distribution Width 21.0 % (11.5-14.5) Platelet Count 188 x10^3/uL (140-400) Neutrophils (%) (Auto) 59 % (31-73) Lymphocytes (%) (Auto) 29 % (24-48) Monocytes (%) (Auto) 11 % (0-9) Eosinophils (%) (Auto) 1 % (0-3) Basophils (%) (Auto) 1 % (0-3) Neutrophils # (Auto) 3.9 x10^3uL (1.8-7.7) Lymphocytes # (Auto) 1.9 x10^3/uL (1.0-4.8) Monocytes # (Auto) 0.7 x10^3/uL (0.0-1.1) Eosinophils # (Auto) 0.1 x10^3/uL (0.0-0.7) Basophils # (Auto) 0.0 x10^3/uL (0.0-0.2) Sodium Level 142 mmol/L (136-145) Potassium Level 4.2 mmol/L (3.5-5.1) Chloride Level 101 mmol/L (98-107) Carbon Dioxide Level 39 mmol/L (21-32) Anion Gap 2 (6-14) Blood Urea Nitrogen 12 mg/dL (7-20) Creatinine 0.5 mg/dL (0.6-1.0) Estimated GFR (Cockcroft-Gault) 162.2 Glucose Level 108 mg/dL (70-99) Calcium Level 9.2 mg/dL (8.5-10.1) Medications Active Scripts Medications Dose Route/Sig Max Daily Dose Days Date Category Prednisone 10 Mg Tablet 30 Mg PO DAILY 08/25/16 Rx Aspirin Ec (Aspirin) 81 Mg Tablet.dr 81 Mg PO DAILYWBKFT 08/25/16 Rx Hydroxychloroquine Sulfate 200 Mg Tablet 200 Mg PO BID 11/06/15 Rx Impression . 1. Nyaoj-lz-rojfnfg hypoxic respiratory failure, present upon admission. 2. Acute cor pulmonale 3. 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 Lupus with interstitial lung disease.mild progression 5. Moderate to severe protein malnutrition, present upon admission. 6. Immunocompromise as a consequence of chronic prednisone use and lupus. Plan . 1. We will continue current diuresis. 2. Repeat echocardiogram.last echo in August 3. Discussed options of possible referral to Dr. Perez for treatment of her pulmonary hypertension at [facility] vs at our office. 4. No need for antibiotics 5. Continue p.r.n. nebulized treatments. 6. DVT prophylaxis. 7. Possible home daily diuresis once discharged. 8. Steroids BRYAN HALL MD Dec 21, 2016 08:51
[2016-12-21] MEDS: predniSONE 10 MG TABLET PO SCH (11:00)
[2016-12-21] MEDS: HYDROXYCHLOROQUINE 200 MG TABLET PO SCH ×2 (11:01→21:43)
[2016-12-21] MEDS: ASPIRIN ENTERIC COATED 81 MG TABLET.DR. PO SCH (11:01)
[2016-12-21] MEDS: POTASSIUM CHLORIDE 20 MEQ TABLET.ER. PO SCH (11:01)
[2016-12-21] MEDS: FUROSEMIDE 40 MG/4 ML VIAL. IVP SCH (11:02)
--- NOTE | 2016-12-21 11:05 | PDOC ---
CARDIO Progress Notes Date and Time Date of Service 12/21/2016 Time of Evaluation 1100 Subjective Subjective: No Chest Pain, No shortness of breath, No Palpitations, Other ( feels better today) Vitals Vitals Vital Signs Date Time Temp Pulse Resp B/P (MAP) Pulse Ox O2 Delivery O2 Flow Rate FiO2 12/21/16 07:00 97.6 94 18 105/76 (86) 99 Venturi Mask 2.0 97.6 Weight Weight [ ] Input and Output Intake and Output Intake and Output 12/21/16 06:59 Intake Total 720 ml Balance 720 ml Intake Oral 720 ml # Voids 4 Laboratory Labs Laboratory Tests Test 12/20/16 21:40 12/21/16 05:00 Urine Collection Type Unknown Urine Color Yellow Urine Clarity Cloudy Urine pH 6.0 Urine Specific [place] 1.020 Urine Protein 30 mg/dL (NEG-TRACE) Urine Glucose (UA) Negative mg/dL (NEG) Urine Ketones (Stick) Negative mg/dL (NEG) Urine Blood Moderate (NEG) Urine Nitrite Negative (NEG) Urine Bilirubin Negative (NEG) Urine Urobilinogen Dipstick 1.0 mg/dL (0.2 mg/dL) Urine Leukocyte Esterase Large (NEG) Urine RBC 3-5 /HPF (0-2) Urine WBC Tntc /HPF (0-4) Urine Squamous Epithelial Cells Mod /LPF Urine Bacteria Few /HPF (0-FEW) Urine Mucus Mod /LPF White Blood Count 6.7 x10^3/uL (4.0-11.0) Red Blood Count 4.77 x10^6/uL (3.50-5.40) Hemoglobin 11.6 g/dL (12.0-15.5) Hematocrit 38.0 % (36.0-47.0) Mean Corpuscular Volume 80 fL (79-100) Mean Corpuscular Hemoglobin 24 pg (25-35) Mean Corpuscular Hemoglobin Concent 31 g/dL (31-37) Red Cell Distribution Width 21.0 % (11.5-14.5) Platelet Count 188 x10^3/uL (140-400) Neutrophils (%) (Auto) 59 % (31-73) Lymphocytes (%) (Auto) 29 % (24-48) Monocytes (%) (Auto) 11 % (0-9) Eosinophils (%) (Auto) 1 % (0-3) Basophils (%) (Auto) 1 % (0-3) Neutrophils # (Auto) 3.9 x10^3uL (1.8-7.7) Lymphocytes # (Auto) 1.9 x10^3/uL (1.0-4.8) Monocytes # (Auto) 0.7 x10^3/uL (0.0-1.1) Eosinophils # (Auto) 0.1 x10^3/uL (0.0-0.7) Basophils # (Auto) 0.0 x10^3/uL (0.0-0.2) Sodium Level 142 mmol/L (136-145) Potassium Level 4.2 mmol/L (3.5-5.1) Chloride Level 101 mmol/L (98-107) Carbon Dioxide Level 39 mmol/L (21-32) Anion Gap 2 (6-14) Blood Urea Nitrogen 12 mg/dL (7-20) Creatinine 0.5 mg/dL (0.6-1.0) Estimated GFR (Cockcroft-Gault) 162.2 Glucose Level 108 mg/dL (70-99) Calcium Level 9.2 mg/dL (8.5-10.1) Physical Exam HEENT: Neck Supple W Full Motion Chest: Symmetric LUNGS: Other (faint basilar crackles) Heart: S1S2, RRR Abdomen: Soft N/T Extremities: No Calf Tenderness Neurology: alert, oriented, follow commands Assessment Assessment 1. Acute on chronic diastolic CHF: due to pulmonary issues 2. Severe Pulmonary HTN/severe TR/ pulmonary fibrosis: per pulmonary 3. Lupus. Recommendations 1. Continue with IV diuretics 2. follow pulmonary recommendation 3. Supportive care. Avoid significant preload reduction. NICOLÁS SILVER APRN Dec 21, 2016 11:05
--- NOTE | 2016-12-21 11:10 | CARD ---
APPROVED REPORT EXAM: Two-dimensional and M-mode echocardiogram with Doppler and color Doppler. Other Information Quality : Good INDICATION Congestive Heart Failure 2D DIMENSIONS RVDd4.2 (2.9-3.5cm)Left Atrium(2D)2.5 (1.6-4.0cm) IVSd2.1 (0.7-1.1cm)Aortic Root(2D)2.8 (2.0-3.7cm) LVDd2.6 (3.9-5.9cm)LVOT Diameter1.9 (1.8-2.4cm) PWd1.6 (0.7-1.1cm)LVDs1.4 (2.5-4.0cm) FS (%) 30.0 %SV18.7 ml LVEF(%)60.0 (>50%) Aortic Valve AoV Peak Rober.98.6cm/sAoV VTI13.3cm AO Peak GR.3.9mmHgLVOT Peak Rober.79.6cm/s LVOT VTI 9.66cmAO Mean GR.2mmHg CHIQUIS (VMAX)2.57qu5ZNU (VTI)2.03cm2 Mitral Valve MV E Jtwqlzgb67.0cm/sMV DECEL [id number] MV A Dewreqia28.0cm/sMV [id number] E/A Ratio0.7MVA (PHT)5.31cm2 TDI E/Lateral E'5.1E/Medial E'5.7 Tricuspid Valve TR P. Jlqxvnle359va/sRAP [id number] TR Peak Gr.[id number] Pulmonary Vein S1 Rdrzhlzw81.6cm/sD2 Sfsnkcoe15.9cm/s LEFT VENTRICLE The left ventricle is normal size. There is moderate concentric left ventricular hypertrophy. The lef t ventricular systolic function is normal and the ejection fraction is within normal range. The Eject ion Fraction is 55-60%. There is normal LV segmental wall motion. Transmitral Doppler flow pattern is Grade I-abnormal relaxation pattern. RIGHT VENTRICLE The right ventricle is severely dilated. RV systolic function is moderately reduced. ATRIA The left atrium size is normal. The right atrium is severely dilated. The interatrial septum is intac t with no evidence for an atrial septal defect or patent foramen ovale as noted on 2-D or Doppler trevor ging. AORTIC VALVE The aortic valve is normal in structure and function. Doppler and Color Flow revealed no significant aortic regurgitation. There is no significant aortic valvular stenosis. MITRAL VALVE The mitral valve is normal in structure and function. There is no evidence of mitral valve prolapse. There is no mitral valve stenosis. Doppler and Color-flow revealed trace mitral regurgitation. TRICUSPID VALVE The tricuspid valve is normal in structure and function. Doppler and Color Flow revealed severe tricu spid regurgitation. There is severe pulmonary hypertension. The PA pressure was estimated to be appro ximately 100 mm Hg. There is no tricuspid valve stenosis. PULMONIC VALVE Doppler and Color Flow revealed trace to mild pulmonic valvular regurgitation. There is no pulmonic v alvular stenosis. GREAT VESSELS The aortic root is normal in size. The ascending aorta is normal in size. The pulmonary artery is dil ated. The IVC is dilated and collapses <50% with inspiration. PERICARDIAL EFFUSION There is a trace circumferential pericardial effusion. Critical Notification Critical Value: No <Conclusion> The left ventricular systolic function is normal and the ejection fraction is within normal range. Th e Ejection Fraction is 55-60%. There is normal LV segmental wall motion. RV systolic function is moderately reduced. Doppler and Color Flow revealed severe tricuspid regurgitation. There is severe pulmonary hypertensio n. The PA pressure was estimated to be approximately 100 mm Hg.
[2016-12-21] MEDS: ALBUTEROL SULFATE 2.5 MG/3 ML NEBU. NEB PRN ×2 (13:02→22:56)
--- NOTE | 2016-12-21 14:57 | PDOC ---
PROGRESS NOTES Chief Complaint Chief Complaint acute on chronic resp failure with hypoxia Interstitial pulmonary fibrosis PHTN Bronchiectasis Lupus CHF right side, acute on chronic mild malnutrition plan: fu with pulm, card NC lasix 40mg iv daily on prednisone 30mg daily dvt, gi ppx wet prep given c/o vaginal discharge echo pending History of Present Illness History of Present Illness Pt is a pleasant 46 year old female who presents with interstitial pulmonary fibrosis and bronchiectasis. She has a hx of Lupus and CHF. Pt was seen at bedside in [facility]. Pt is being followed by cardiology and pulmonology. Will continue ventimask, nebulizers, and lasix. Will continue to monitor. ROS: no fever, chills, chest pain cont some sob bl leg edema Vitals Vitals Vital Signs Date Time Temp Pulse Resp B/P (MAP) Pulse Ox O2 Delivery O2 Flow Rate FiO2 12/21/16 13:05 Nasal Cannula 4.0 12/21/16 07:00 97.6 94 18 105/76 (86) 99 97.6 Physical Exam General: Alert, Oriented X3, Cooperative, mild distress, moderate distress Heart: Regular rate, Normal S1, Normal S2, Other (Mitral murmur) Lungs: Crackles (bl mild bases) Abdomen: Normal bowel sounds Extremities: No clubbing, Other (bl 2 + pitting edema) Skin: No rashes, No breakdown Labs LABS Laboratory Tests Test 12/20/16 21:40 12/21/16 05:00 Urine Collection Type Unknown Urine Color Yellow Urine Clarity Cloudy Urine pH 6.0 Urine Specific [place] 1.020 Urine Protein 30 mg/dL (NEG-TRACE) Urine Glucose (UA) Negative mg/dL (NEG) Urine Ketones (Stick) Negative mg/dL (NEG) Urine Blood Moderate (NEG) Urine Nitrite Negative (NEG) Urine Bilirubin Negative (NEG) Urine Urobilinogen Dipstick 1.0 mg/dL (0.2 mg/dL) Urine Leukocyte Esterase Large (NEG) Urine RBC 3-5 /HPF (0-2) Urine WBC Tntc /HPF (0-4) Urine Squamous Epithelial Cells Mod /LPF Urine Bacteria Few /HPF (0-FEW) Urine Mucus Mod /LPF White Blood Count 6.7 x10^3/uL (4.0-11.0) Red Blood Count 4.77 x10^6/uL (3.50-5.40) Hemoglobin 11.6 g/dL (12.0-15.5) Hematocrit 38.0 % (36.0-47.0) Mean Corpuscular Volume 80 fL (79-100) Mean Corpuscular Hemoglobin 24 pg (25-35) Mean Corpuscular Hemoglobin Concent 31 g/dL (31-37) Red Cell Distribution Width 21.0 % (11.5-14.5) Platelet Count 188 x10^3/uL (140-400) Neutrophils (%) (Auto) 59 % (31-73) Lymphocytes (%) (Auto) 29 % (24-48) Monocytes (%) (Auto) 11 % (0-9) Eosinophils (%) (Auto) 1 % (0-3) Basophils (%) (Auto) 1 % (0-3) Neutrophils # (Auto) 3.9 x10^3uL (1.8-7.7) Lymphocytes # (Auto) 1.9 x10^3/uL (1.0-4.8) Monocytes # (Auto) 0.7 x10^3/uL (0.0-1.1) Eosinophils # (Auto) 0.1 x10^3/uL (0.0-0.7) Basophils # (Auto) 0.0 x10^3/uL (0.0-0.2) Sodium Level 142 mmol/L (136-145) Potassium Level 4.2 mmol/L (3.5-5.1) Chloride Level 101 mmol/L (98-107) Carbon Dioxide Level 39 mmol/L (21-32) Anion Gap 2 (6-14) Blood Urea Nitrogen 12 mg/dL (7-20) Creatinine 0.5 mg/dL (0.6-1.0) Estimated GFR (Cockcroft-Gault) 162.2 Glucose Level 108 mg/dL (70-99) Calcium Level 9.2 mg/dL (8.5-10.1) Comment Review of Relevant I have reviewed the following items ludmila (where applicable) has been applied. Labs Laboratory Tests Test 12/20/16 05:00 12/20/16 05:20 12/20/16 21:40 12/21/16 05:00 White Blood Count 5.6 x10^3/uL (4.0-11.0) 6.7 x10^3/uL (4.0-11.0) Red Blood Count 4.46 x10^6/uL (3.50-5.40) 4.77 x10^6/uL (3.50-5.40) Hemoglobin 11.0 g/dL (12.0-15.5) 11.6 g/dL (12.0-15.5) Hematocrit 35.5 % (36.0-47.0) 38.0 % (36.0-47.0) Mean Corpuscular Volume 80 fL (79-100) 80 fL (79-100) Mean Corpuscular Hemoglobin 25 pg (25-35) 24 pg (25-35) Mean Corpuscular Hemoglobin Concent 31 g/dL (31-37) 31 g/dL (31-37) Red Cell Distribution Width 21.1 % (11.5-14.5) 21.0 % (11.5-14.5) Platelet Count 157 x10^3/uL (140-400) 188 x10^3/uL (140-400) Neutrophils (%) (Auto) 59 % (31-73) 59 % (31-73) Lymphocytes (%) (Auto) 28 % (24-48) 29 % (24-48) Monocytes (%) (Auto) 11 % (0-9) 11 % (0-9) Eosinophils (%) (Auto) 2 % (0-3) 1 % (0-3) Basophils (%) (Auto) 1 % (0-3) 1 % (0-3) Neutrophils # (Auto) 3.3 x10^3uL (1.8-7.7) 3.9 x10^3uL (1.8-7.7) Lymphocytes # (Auto) 1.6 x10^3/uL (1.0-4.8) 1.9 x10^3/uL (1.0-4.8) Monocytes # (Auto) 0.6 x10^3/uL (0.0-1.1) 0.7 x10^3/uL (0.0-1.1) Eosinophils # (Auto) 0.1 x10^3/uL (0.0-0.7) 0.1 x10^3/uL (0.0-0.7) Basophils # (Auto) 0.0 x10^3/uL (0.0-0.2) 0.0 x10^3/uL (0.0-0.2) Platelet Estimate Adequate (ADEQUATE) Anisocytosis Present Sodium Level 143 mmol/L (136-145) 142 mmol/L (136-145) Potassium Level 4.0 mmol/L (3.5-5.1) 4.2 mmol/L (3.5-5.1) Chloride Level 102 mmol/L (98-107) 101 mmol/L (98-107) Carbon Dioxide Level 38 mmol/L (21-32) 39 mmol/L (21-32) Anion Gap 3 (6-14) 2 (6-14) Blood Urea Nitrogen 15 mg/dL (7-20) 12 mg/dL (7-20) Creatinine 0.4 mg/dL (0.6-1.0) 0.5 mg/dL (0.6-1.0) Estimated GFR (Cockcroft-Gault) 209.8 162.2 BUN/Creatinine Ratio 38 (6-20) Glucose Level 86 mg/dL (70-99) 108 mg/dL (70-99) Calcium Level 8.7 mg/dL (8.5-10.1) 9.2 mg/dL (8.5-10.1) Total Bilirubin 0.5 mg/dL (0.2-1.0) Aspartate Amino Transf (AST/SGOT) 16 U/L (15-37) Alanine Aminotransferase (ALT/SGPT) 17 U/L (14-59) Alkaline Phosphatase 52 U/L (46-116) Total Protein 6.2 g/dL (6.4-8.2) Albumin 2.8 g/dL (3.4-5.0) Albumin/Globulin Ratio 0.8 (1.0-1.7) Urine Collection Type Unknown Urine Color Yellow Urine Clarity Cloudy Urine pH 6.0 Urine Specific [place] 1.020 Urine Protein 30 mg/dL (NEG-TRACE) Urine Glucose (UA) Negative mg/dL (NEG) Urine Ketones (Stick) Negative mg/dL (NEG) Urine Blood Moderate (NEG) Urine Nitrite Negative (NEG) Urine Bilirubin Negative (NEG) Urine Urobilinogen Dipstick 1.0 mg/dL (0.2 mg/dL) Urine Leukocyte Esterase Large (NEG) Urine RBC 3-5 /HPF (0-2) Urine WBC Tntc /HPF (0-4) Urine Squamous Epithelial Cells Mod /LPF Urine Bacteria Few /HPF (0-FEW) Urine Mucus Mod /LPF Laboratory Tests Test 12/20/16 21:40 12/21/16 05:00 Urine Collection Type Unknown Urine Color Yellow Urine Clarity Cloudy Urine pH 6.0 Urine Specific [place] 1.020 Urine Protein 30 mg/dL (NEG-TRACE) Urine Glucose (UA) Negative mg/dL (NEG) Urine Ketones (Stick) Negative mg/dL (NEG) Urine Blood Moderate (NEG) Urine Nitrite Negative (NEG) Urine Bilirubin Negative (NEG) Urine Urobilinogen Dipstick 1.0 mg/dL (0.2 mg/dL) Urine Leukocyte Esterase Large (NEG) Urine RBC 3-5 /HPF (0-2) Urine WBC Tntc /HPF (0-4) Urine Squamous Epithelial Cells Mod /LPF Urine Bacteria Few /HPF (0-FEW) Urine Mucus Mod /LPF White Blood Count 6.7 x10^3/uL (4.0-11.0) Red Blood Count 4.77 x10^6/uL (3.50-5.40) Hemoglobin 11.6 g/dL (12.0-15.5) Hematocrit 38.0 % (36.0-47.0) Mean Corpuscular Volume 80 fL (79-100) Mean Corpuscular Hemoglobin 24 pg (25-35) Mean Corpuscular Hemoglobin Concent 31 g/dL (31-37) Red Cell Distribution Width 21.0 % (11.5-14.5) Platelet Count 188 x10^3/uL (140-400) Neutrophils (%) (Auto) 59 % (31-73) Lymphocytes (%) (Auto) 29 % (24-48) Monocytes (%) (Auto) 11 % (0-9) Eosinophils (%) (Auto) 1 % (0-3) Basophils (%) (Auto) 1 % (0-3) Neutrophils # (Auto) 3.9 x10^3uL (1.8-7.7) Lymphocytes # (Auto) 1.9 x10^3/uL (1.0-4.8) Monocytes # (Auto) 0.7 x10^3/uL (0.0-1.1) Eosinophils # (Auto) 0.1 x10^3/uL (0.0-0.7) Basophils # (Auto) 0.0 x10^3/uL (0.0-0.2) Sodium Level 142 mmol/L (136-145) Potassium Level 4.2 mmol/L (3.5-5.1) Chloride Level 101 mmol/L (98-107) Carbon Dioxide Level 39 mmol/L (21-32) Anion Gap 2 (6-14) Blood Urea Nitrogen 12 mg/dL (7-20) Creatinine 0.5 mg/dL (0.6-1.0) Estimated GFR (Cockcroft-Gault) 162.2 Glucose Level 108 mg/dL (70-99) Calcium Level 9.2 mg/dL (8.5-10.1) Medications Current Medications Enoxaparin Sodium (Lovenox 40mg Syringe) 40 mg Q24H SQ Last administered on 21:47; Start 12/19/16 at 21:00 Potassium Chloride 50 ml @ 50 mls/hr DAILY IV ; Start 12/20/16 at 09:00; Status UNV Furosemide (Lasix) 40 mg DAILY IVP Last administered on 12/21/16 11:02; Start 12/20/16 at 09:00 Aspirin (Ecotrin) 81 mg DAILYWBKFT PO Last administered on 12/21/16 11:01; Start 12/20/16 at 08:00 Hydroxychloroquine Sulfate (Plaquenil) 200 mg BID PO Last administered on 12/21 11:01; Start 12/19/16 at 21:00 Prednisone (Prednisone) 30 mg DAILY PO Last administered on 12/21/16 11:00; Start 12/20/16 at 09:00 Potassium Chloride (Klor-Con) 20 meq DAILYWBKFT PO Last administered on 11:01; Start 12/20/16 at 08:00 Pneumococcal Polyvalent Vaccine (Pneumovax 23) 0.5 ml ONCE ONCE VAX IM ; Start 12/19/16 at 18:00; Stop 12/19/16 at 18:01; Status DC Diphenhydramine HCl (Benadryl) 25 mg PRN Q6HRS PRN PO ITCHING Last administered on 12/20/16 21:46; Start 12/19/16 at 19:15 Albuterol Sulfate (Ventolin Neb Soln) 2.5 mg PRN Q4HRS PRN NEB SHORTNESS OF BREATH Last administered on 12/21/16 13:02; Start 12/19/16 at 22:00 Active Scripts Active Prednisone 10 Mg Tablet 30 Mg PO DAILY 30 Days Aspirin Ec (Aspirin) 81 Mg Tablet.dr 81 Mg PO DAILYWBKFT 30 Days Hydroxychloroquine Sulfate 200 Mg Tablet 200 Mg PO BID 30 Days Vitals/I & O Vital Sign - Last 24 Hours 12/20/16 12/20/16 12/20/16 12/20/16 15:00 19:00 20:00 21:17 Temp 97.7 97.7 97.7 97.7 Pulse 95 102 Resp 18 18 B/P (MAP) 125/92 (103) 128/91 (103) Pulse Ox 98 99 95 O2 Delivery Venturi Mask Venturi Mask Venturi Mask O2 Flow Rate 2.0 15.0 12/20/16 12/21/16 12/21/16 12/21/16 23:00 03:00 07:00 13:05 Temp 97.7 97.7 97.6 97.7 97.7 97.6 Pulse 89 106 94 Resp 18 18 18 B/P (MAP) 126/77 (93) 106/79 (88) 105/76 (86) Pulse Ox 100 100 99 O2 Delivery Venturi Mask Venturi Mask Venturi Mask Nasal Cannula O2 Flow Rate 2.0 2.0 2.0 4.0 Intake and Output 12/20/16 12/20/16 12/21/16 15:00 23:00 07:00 Intake Total 480 ml 240 ml Balance 480 ml 240 ml GINA ALMAZAN MD Dec 21, 2016 14:57
[2016-12-21 15:00] VITALS: BP 119/71
[2016-12-21] MEDS ORDERED: hydrALAZINE 20 MG/ML VIAL. IVP PRN (15:00)
[2016-12-21] MEDS ORDERED: ACETAMINOPHEN 325 MG TABLET. PO PRN (15:00)
[2016-12-21] MEDS ORDERED: traMADol 50 MG TABLET PO PRN (15:00)
[2016-12-21] MEDS ORDERED: ONDANSETRON PF 4 MG/2 ML VIAL. IV PRN (15:00)
[2016-12-21] MEDS ORDERED: MORPHINE SULFATE 4 MG/ML DISP.SYRIN. IV PRN (15:00)
[2016-12-21] MEDS ORDERED: DOCUSATE SODIUM 100 MG CAPSULE. PO PRN (15:00)
[2016-12-21 19:00] VITALS: BP 120/81
[2016-12-21] MEDS: FAMOTIDINE 20 MG TABLET. PO SCH ×2 (21:00→21:43)
[2016-12-21] MEDS: ENOXAPARIN 40 MG/0.4 ML SYRINGE. SQ SCH (21:44)
[2016-12-21] MEDS: diphenhydrAMINE HCL 25 MG CAPSULE PO PRN (21:50)
[2016-12-21 23:00] VITALS: BP 105/64
[2016-12-22 03:00] VITALS: BP 109/85
[2016-12-22 05:06] LABS: BASO # 0.1 x10^3/uL (0.0-0.2); BASO % 1 % (0-3); EOS % 1 % (0-3); HEMATOCRIT 36.9 % (36.0-47.0); HEMOGLOBIN 11.3 g/dL (12.0-15.5); LYMPH # 2.1 x10^3/uL (1.0-4.8); LYMPH % 30 % (24-48); MEAN CORPUSCULAR HEMOGLOBIN 25 pg (25-35); MEAN CORPUSCULAR HGB CONC 31 g/dL (31-37); MEAN CORPUSCULAR VOLUME 80 fL (79-100); MONO % 13 % (0-9); NEUT % 56 % (31-73); PLATELET COUNT 175 x10^3/uL (140-400); RED BLOOD COUNT 4.59 x10^6/uL (3.50-5.40); RED CELL DISTRIBUTION WIDTH 21.3 % (11.5-14.5); WHITE BLOOD COUNT 6.9 x10^3/uL (4.0-11.0)
[2016-12-22 05:26] LABS: CALCIUM 9.4 mg/dL (8.5-10.1); CREATININE 0.5 mg/dL (0.6-1.0); GFR 162.2; POTASSIUM 4.3 mmol/L (3.5-5.1)
[2016-12-22 07:00] VITALS: BP 112/84
[2016-12-22] MEDS: predniSONE 10 MG TABLET PO SCH (09:07)
[2016-12-22] MEDS: POTASSIUM CHLORIDE 20 MEQ TABLET.ER. PO SCH (09:08)
[2016-12-22] MEDS: HYDROXYCHLOROQUINE 200 MG TABLET PO SCH ×2 (09:08→21:47)
[2016-12-22] MEDS: ASPIRIN ENTERIC COATED 81 MG TABLET.DR. PO SCH (09:08)
[2016-12-22] MEDS: FUROSEMIDE 40 MG/4 ML VIAL. IVP SCH (09:09)
[2016-12-22] MEDS: metroNIDAZOLE 500 MG TABLET PO SCH ×2 (09:15→21:45)
[2016-12-22 11:00] VITALS: BP 107/74
--- NOTE | 2016-12-22 12:07 | PDOC ---
PULMONARY PROGRESS NOTES Subjective clinically better, on 3 litres now Vitals Vital Signs Date Time Temp Pulse Resp B/P (MAP) Pulse Ox O2 Delivery O2 Flow Rate FiO2 12/22/16 07:00 98.4 85 18 112/84 (93) 94 Nasal Cannula 2.0 98.4 General: Alert, No acute distress Lungs: Crackles (bl mild bases) Cardiovascular: S1, S2 Abdomen: Soft Extremities: Other (2+edema) Skin: Warm Labs Laboratory Tests Test 12/20/16 21:40 12/21/16 05:00 12/21/16 12:15 12/22/16 04:30 Urine Collection Type Unknown Urine Color Yellow Urine Clarity Cloudy Urine pH 6.0 Urine Specific [place] 1.020 Urine Protein 30 mg/dL (NEG-TRACE) Urine Glucose (UA) Negative mg/dL (NEG) Urine Ketones (Stick) Negative mg/dL (NEG) Urine Blood Moderate (NEG) Urine Nitrite Negative (NEG) Urine Bilirubin Negative (NEG) Urine Urobilinogen Dipstick 1.0 mg/dL (0.2 mg/dL) Urine Leukocyte Esterase Large (NEG) Urine RBC 3-5 /HPF (0-2) Urine WBC Tntc /HPF (0-4) Urine Squamous Epithelial Cells Mod /LPF Urine Bacteria Few /HPF (0-FEW) Urine Mucus Mod /LPF White Blood Count 6.7 x10^3/uL (4.0-11.0) 6.9 x10^3/uL (4.0-11.0) Red Blood Count 4.77 x10^6/uL (3.50-5.40) 4.59 x10^6/uL (3.50-5.40) Hemoglobin 11.6 g/dL (12.0-15.5) 11.3 g/dL (12.0-15.5) Hematocrit 38.0 % (36.0-47.0) 36.9 % (36.0-47.0) Mean Corpuscular Volume 80 fL (79-100) 80 fL (79-100) Mean Corpuscular Hemoglobin 24 pg (25-35) 25 pg (25-35) Mean Corpuscular Hemoglobin Concent 31 g/dL (31-37) 31 g/dL (31-37) Red Cell Distribution Width 21.0 % (11.5-14.5) 21.3 % (11.5-14.5) Platelet Count 188 x10^3/uL (140-400) 175 x10^3/uL (140-400) Neutrophils (%) (Auto) 59 % (31-73) 56 % (31-73) Lymphocytes (%) (Auto) 29 % (24-48) 30 % (24-48) Monocytes (%) (Auto) 11 % (0-9) 13 % (0-9) Eosinophils (%) (Auto) 1 % (0-3) 1 % (0-3) Basophils (%) (Auto) 1 % (0-3) 1 % (0-3) Neutrophils # (Auto) 3.9 x10^3uL (1.8-7.7) 3.9 x10^3uL (1.8-7.7) Lymphocytes # (Auto) 1.9 x10^3/uL (1.0-4.8) 2.1 x10^3/uL (1.0-4.8) Monocytes # (Auto) 0.7 x10^3/uL (0.0-1.1) 0.9 x10^3/uL (0.0-1.1) Eosinophils # (Auto) 0.1 x10^3/uL (0.0-0.7) 0.0 x10^3/uL (0.0-0.7) Basophils # (Auto) 0.0 x10^3/uL (0.0-0.2) 0.1 x10^3/uL (0.0-0.2) Sodium Level 142 mmol/L (136-145) 143 mmol/L (136-145) Potassium Level 4.2 mmol/L (3.5-5.1) 4.3 mmol/L (3.5-5.1) Chloride Level 101 mmol/L (98-107) 101 mmol/L (98-107) Carbon Dioxide Level 39 mmol/L (21-32) 42 mmol/L (21-32) Anion Gap 2 (6-14) 0 (6-14) Blood Urea Nitrogen 12 mg/dL (7-20) 13 mg/dL (7-20) Creatinine 0.5 mg/dL (0.6-1.0) 0.5 mg/dL (0.6-1.0) Estimated GFR (Cockcroft-Gault) 162.2 162.2 Glucose Level 108 mg/dL (70-99) 84 mg/dL (70-99) Calcium Level 9.2 mg/dL (8.5-10.1) 9.4 mg/dL (8.5-10.1) Nasal Screen MRSA (PCR) Negative (Negative) Laboratory Tests Test 12/21/16 12:15 12/22/16 04:30 Nasal Screen MRSA (PCR) Negative (Negative) White Blood Count 6.9 x10^3/uL (4.0-11.0) Red Blood Count 4.59 x10^6/uL (3.50-5.40) Hemoglobin 11.3 g/dL (12.0-15.5) Hematocrit 36.9 % (36.0-47.0) Mean Corpuscular Volume 80 fL (79-100) Mean Corpuscular Hemoglobin 25 pg (25-35) Mean Corpuscular Hemoglobin Concent 31 g/dL (31-37) Red Cell Distribution Width 21.3 % (11.5-14.5) Platelet Count 175 x10^3/uL (140-400) Neutrophils (%) (Auto) 56 % (31-73) Lymphocytes (%) (Auto) 30 % (24-48) Monocytes (%) (Auto) 13 % (0-9) Eosinophils (%) (Auto) 1 % (0-3) Basophils (%) (Auto) 1 % (0-3) Neutrophils # (Auto) 3.9 x10^3uL (1.8-7.7) Lymphocytes # (Auto) 2.1 x10^3/uL (1.0-4.8) Monocytes # (Auto) 0.9 x10^3/uL (0.0-1.1) Eosinophils # (Auto) 0.0 x10^3/uL (0.0-0.7) Basophils # (Auto) 0.1 x10^3/uL (0.0-0.2) Sodium Level 143 mmol/L (136-145) Potassium Level 4.3 mmol/L (3.5-5.1) Chloride Level 101 mmol/L (98-107) Carbon Dioxide Level 42 mmol/L (21-32) Anion Gap 0 (6-14) Blood Urea Nitrogen 13 mg/dL (7-20) Creatinine 0.5 mg/dL (0.6-1.0) Estimated GFR (Cockcroft-Gault) 162.2 Glucose Level 84 mg/dL (70-99) Calcium Level 9.4 mg/dL (8.5-10.1) Medications Active Scripts Medications Dose Route/Sig Max Daily Dose Days Date Category Prednisone 10 Mg Tablet 30 Mg PO DAILY 30 08/25/16 Rx Aspirin Ec (Aspirin) 81 Mg Tablet. 81 Mg PO DAILYWBKFT 30 08/25/16 Rx Hydroxychloroquine Sulfate 200 Mg Tablet 200 Mg PO BID 30 11/06/15 Rx Impression . 1. Kzwof-or-tiasklr hypoxic respiratory failure, present upon admission. 2. Acute cor pulmonale 3. 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 Lupus with interstitial lung disease.mild progression 5. Moderate to severe protein malnutrition, present upon admission. 6. Immunocompromise as a consequence of chronic prednisone use and lupus. Plan . 1. We will continue current diuresis. 2. Repeat echocardiogram with PA pressure of 100 3. Discussed options of possible referral to Dr. Perez for treatment of her pulmonary hypertension at [facility] at our office. May need right heart cath as OP 4. No need for antibiotics 5. Continue p.r.n. nebulized treatments. 6. DVT prophylaxis. 7. Possible home daily diuresis once discharged. 8. Steroids BRYAN HALL MD Dec 22, 2016 12:06
--- NOTE | 2016-12-22 12:09 | PDOC ---
CARDIO Progress Notes Date and Time Date of Service 12/22/16 Time of Evaluation 1050 Subjective Subjective: No Chest Pain, No Palpitations, Other (slight DIAZ) Vitals Vitals Vital Signs Date Time Temp Pulse Resp B/P (MAP) Pulse Ox O2 Delivery O2 Flow Rate FiO2 12/22/16 07:00 98.4 85 18 112/84 (93) 94 Nasal Cannula 2.0 98.4 Weight Weight [ ] Input and Output Intake and Output Intake and Output 12/22/16 07:00 Intake Total 2660 ml Balance 2660 ml Intake Oral 2660 ml # Voids 7 Laboratory Labs Laboratory Tests Test 12/21/16 12:15 12/22/16 04:30 Nasal Screen MRSA (PCR) Negative (Negative) White Blood Count 6.9 x10^3/uL (4.0-11.0) Red Blood Count 4.59 x10^6/uL (3.50-5.40) Hemoglobin 11.3 g/dL (12.0-15.5) Hematocrit 36.9 % (36.0-47.0) Mean Corpuscular Volume 80 fL (79-100) Mean Corpuscular Hemoglobin 25 pg (25-35) Mean Corpuscular Hemoglobin Concent 31 g/dL (31-37) Red Cell Distribution Width 21.3 % (11.5-14.5) Platelet Count 175 x10^3/uL (140-400) Neutrophils (%) (Auto) 56 % (31-73) Lymphocytes (%) (Auto) 30 % (24-48) Monocytes (%) (Auto) 13 % (0-9) Eosinophils (%) (Auto) 1 % (0-3) Basophils (%) (Auto) 1 % (0-3) Neutrophils # (Auto) 3.9 x10^3uL (1.8-7.7) Lymphocytes # (Auto) 2.1 x10^3/uL (1.0-4.8) Monocytes # (Auto) 0.9 x10^3/uL (0.0-1.1) Eosinophils # (Auto) 0.0 x10^3/uL (0.0-0.7) Basophils # (Auto) 0.1 x10^3/uL (0.0-0.2) Sodium Level 143 mmol/L (136-145) Potassium Level 4.3 mmol/L (3.5-5.1) Chloride Level 101 mmol/L (98-107) Carbon Dioxide Level 42 mmol/L (21-32) Anion Gap 0 (6-14) Blood Urea Nitrogen 13 mg/dL (7-20) Creatinine 0.5 mg/dL (0.6-1.0) Estimated GFR (Cockcroft-Gault) 162.2 Glucose Level 84 mg/dL (70-99) Calcium Level 9.4 mg/dL (8.5-10.1) Microbiology Micro Microbiology 12/21/16 Wet Prep - Final, Complete Physical Exam HEENT: Neck Supple W Full Motion Chest: Symmetric LUNGS: Other (faint expiratroy wheezes) Heart: S1S2, RRR Abdomen: Soft N/T Extremities: No Calf Tenderness, Other (1-2+ bilateral LE pitting edema ) Neurology: alert, oriented, follow commands Assessment Assessment 1. Acute on chronic diastolic CHF; improving with diuresis. LVEF 55-60 with moderately reduced RV systolic function 2. Acute on chronic respiratory failure with severe pulm HTN and pulmonary fibrosis. PAP 100 per echo 3. Lupus with ILD; chronic steroids Recommendations 1. Continue with IV diuretics 2. Accurate I and O (no output recorded). Keep I < O 3. Lung optimization as per pulmonary 4. Supportive care. BRANDON LINDSEY APRN Dec 22, 2016 12:09
[2016-12-22 15:00] VITALS: BP 112/72
--- NOTE | 2016-12-22 15:25 | PDOC ---
PROGRESS NOTES Chief Complaint Chief Complaint acute on chronic resp failure with hypoxia Interstitial pulmonary fibrosis severe PHTN severe TR Bronchiectasis Lupus CHF right side, acute on chronic mild malnutrition trichomonas, bacteria vaginitis plan: fu with pulm, card NC lasix 40mg iv daily on prednisone 30mg daily dvt, gi ppx wet prep given c/o vaginal discharge, add flagyl po bid x7ds check gonarrhea echo EF ok, but right side CHF with severe TR, PHTN History of Present Illness History of Present Illness Pt is a pleasant 46 year old female who presents with interstitial pulmonary fibrosis and bronchiectasis. She has a hx of Lupus and CHF. Pt was seen at bedside in [facility]. Pt is being followed by cardiology and pulmonology. Will continue ventimask, nebulizers, and lasix. Will continue to monitor. ROS: no fever, chills, chest pain cont some sob bl leg edema Vitals Vitals Vital Signs Date Time Temp Pulse Resp B/P (MAP) Pulse Ox O2 Delivery O2 Flow Rate FiO2 12/22/16 07:00 98.4 85 18 112/84 (93) 94 Nasal Cannula 2.0 98.4 Physical Exam General: Alert, Oriented X3, Cooperative, mild distress, moderate distress Heart: Regular rate, Normal S1, Normal S2, Other (Mitral murmur) Lungs: Crackles (bl mild bases) Abdomen: Normal bowel sounds Extremities: No clubbing, Other (bl 2 + pitting edema) Skin: No rashes, No breakdown Labs LABS Laboratory Tests Test 12/22/16 04:30 White Blood Count 6.9 x10^3/uL (4.0-11.0) Red Blood Count 4.59 x10^6/uL (3.50-5.40) Hemoglobin 11.3 g/dL (12.0-15.5) Hematocrit 36.9 % (36.0-47.0) Mean Corpuscular Volume 80 fL (79-100) Mean Corpuscular Hemoglobin 25 pg (25-35) Mean Corpuscular Hemoglobin Concent 31 g/dL (31-37) Red Cell Distribution Width 21.3 % (11.5-14.5) Platelet Count 175 x10^3/uL (140-400) Neutrophils (%) (Auto) 56 % (31-73) Lymphocytes (%) (Auto) 30 % (24-48) Monocytes (%) (Auto) 13 % (0-9) Eosinophils (%) (Auto) 1 % (0-3) Basophils (%) (Auto) 1 % (0-3) Neutrophils # (Auto) 3.9 x10^3uL (1.8-7.7) Lymphocytes # (Auto) 2.1 x10^3/uL (1.0-4.8) Monocytes # (Auto) 0.9 x10^3/uL (0.0-1.1) Eosinophils # (Auto) 0.0 x10^3/uL (0.0-0.7) Basophils # (Auto) 0.1 x10^3/uL (0.0-0.2) Sodium Level 143 mmol/L (136-145) Potassium Level 4.3 mmol/L (3.5-5.1) Chloride Level 101 mmol/L (98-107) Carbon Dioxide Level 42 mmol/L (21-32) Anion Gap 0 (6-14) Blood Urea Nitrogen 13 mg/dL (7-20) Creatinine 0.5 mg/dL (0.6-1.0) Estimated GFR (Cockcroft-Gault) 162.2 Glucose Level 84 mg/dL (70-99) Calcium Level 9.4 mg/dL (8.5-10.1) Comment Review of Relevant I have reviewed the following items ludmila (where applicable) has been applied. Labs Laboratory Tests Test 12/20/16 21:40 12/21/16 05:00 12/21/16 12:15 12/22/16 04:30 Urine Collection Type Unknown Urine Color Yellow Urine Clarity Cloudy Urine pH 6.0 Urine Specific [place] 1.020 Urine Protein 30 mg/dL (NEG-TRACE) Urine Glucose (UA) Negative mg/dL (NEG) Urine Ketones (Stick) Negative mg/dL (NEG) Urine Blood Moderate (NEG) Urine Nitrite Negative (NEG) Urine Bilirubin Negative (NEG) Urine Urobilinogen Dipstick 1.0 mg/dL (0.2 mg/dL) Urine Leukocyte Esterase Large (NEG) Urine RBC 3-5 /HPF (0-2) Urine WBC Tntc /HPF (0-4) Urine Squamous Epithelial Cells Mod /LPF Urine Bacteria Few /HPF (0-FEW) Urine Mucus Mod /LPF White Blood Count 6.7 x10^3/uL (4.0-11.0) 6.9 x10^3/uL (4.0-11.0) Red Blood Count 4.77 x10^6/uL (3.50-5.40) 4.59 x10^6/uL (3.50-5.40) Hemoglobin 11.6 g/dL (12.0-15.5) 11.3 g/dL (12.0-15.5) Hematocrit 38.0 % (36.0-47.0) 36.9 % (36.0-47.0) Mean Corpuscular Volume 80 fL (79-100) 80 fL (79-100) Mean Corpuscular Hemoglobin 24 pg (25-35) 25 pg (25-35) Mean Corpuscular Hemoglobin Concent 31 g/dL (31-37) 31 g/dL (31-37) Red Cell Distribution Width 21.0 % (11.5-14.5) 21.3 % (11.5-14.5) Platelet Count 188 x10^3/uL (140-400) 175 x10^3/uL (140-400) Neutrophils (%) (Auto) 59 % (31-73) 56 % (31-73) Lymphocytes (%) (Auto) 29 % (24-48) 30 % (24-48) Monocytes (%) (Auto) 11 % (0-9) 13 % (0-9) Eosinophils (%) (Auto) 1 % (0-3) 1 % (0-3) Basophils (%) (Auto) 1 % (0-3) 1 % (0-3) Neutrophils # (Auto) 3.9 x10^3uL (1.8-7.7) 3.9 x10^3uL (1.8-7.7) Lymphocytes # (Auto) 1.9 x10^3/uL (1.0-4.8) 2.1 x10^3/uL (1.0-4.8) Monocytes # (Auto) 0.7 x10^3/uL (0.0-1.1) 0.9 x10^3/uL (0.0-1.1) Eosinophils # (Auto) 0.1 x10^3/uL (0.0-0.7) 0.0 x10^3/uL (0.0-0.7) Basophils # (Auto) 0.0 x10^3/uL (0.0-0.2) 0.1 x10^3/uL (0.0-0.2) Sodium Level 142 mmol/L (136-145) 143 mmol/L (136-145) Potassium Level 4.2 mmol/L (3.5-5.1) 4.3 mmol/L (3.5-5.1) Chloride Level 101 mmol/L (98-107) 101 mmol/L (98-107) Carbon Dioxide Level 39 mmol/L (21-32) 42 mmol/L (21-32) Anion Gap 2 (6-14) 0 (6-14) Blood Urea Nitrogen 12 mg/dL (7-20) 13 mg/dL (7-20) Creatinine 0.5 mg/dL (0.6-1.0) 0.5 mg/dL (0.6-1.0) Estimated GFR (Cockcroft-Gault) 162.2 162.2 Glucose Level 108 mg/dL (70-99) 84 mg/dL (70-99) Calcium Level 9.2 mg/dL (8.5-10.1) 9.4 mg/dL (8.5-10.1) Nasal Screen MRSA (PCR) Negative (Negative) Laboratory Tests Test 12/22/16 04:30 White Blood Count 6.9 x10^3/uL (4.0-11.0) Red Blood Count 4.59 x10^6/uL (3.50-5.40) Hemoglobin 11.3 g/dL (12.0-15.5) Hematocrit 36.9 % (36.0-47.0) Mean Corpuscular Volume 80 fL (79-100) Mean Corpuscular Hemoglobin 25 pg (25-35) Mean Corpuscular Hemoglobin Concent 31 g/dL (31-37) Red Cell Distribution Width 21.3 % (11.5-14.5) Platelet Count 175 x10^3/uL (140-400) Neutrophils (%) (Auto) 56 % (31-73) Lymphocytes (%) (Auto) 30 % (24-48) Monocytes (%) (Auto) 13 % (0-9) Eosinophils (%) (Auto) 1 % (0-3) Basophils (%) (Auto) 1 % (0-3) Neutrophils # (Auto) 3.9 x10^3uL (1.8-7.7) Lymphocytes # (Auto) 2.1 x10^3/uL (1.0-4.8) Monocytes # (Auto) 0.9 x10^3/uL (0.0-1.1) Eosinophils # (Auto) 0.0 x10^3/uL (0.0-0.7) Basophils # (Auto) 0.1 x10^3/uL (0.0-0.2) Sodium Level 143 mmol/L (136-145) Potassium Level 4.3 mmol/L (3.5-5.1) Chloride Level 101 mmol/L (98-107) Carbon Dioxide Level 42 mmol/L (21-32) Anion Gap 0 (6-14) Blood Urea Nitrogen 13 mg/dL (7-20) Creatinine 0.5 mg/dL (0.6-1.0) Estimated GFR (Cockcroft-Gault) 162.2 Glucose Level 84 mg/dL (70-99) Calcium Level 9.4 mg/dL (8.5-10.1) Microbiology 12/21/16 Wet Prep - Final, Complete Medications Current Medications Enoxaparin Sodium (Lovenox 40mg Syringe) 40 mg Q24H SQ Last administered on 21:44; Start 12/19/16 at 21:00 Potassium Chloride 50 ml @ 50 mls/hr DAILY IV ; Start 12/20/16 at 09:00; Status UNV Furosemide (Lasix) 40 mg DAILY IVP Last administered on 12/22/16 09:09; Start 12/20/16 at 09:00 Aspirin (Ecotrin) 81 mg DAILYWBKFT PO Last administered on 12/22/16 09:08; Start 12/20/16 at 08:00 Hydroxychloroquine Sulfate (Plaquenil) 200 mg BID PO Last administered on 12/22 09:08; Start 12/19/16 at 21:00 Prednisone (Prednisone) 30 mg DAILY PO Last administered on 12/22/16 09:07; Start 12/20/16 at 09:00 Potassium Chloride (Klor-Con) 20 meq DAILYWBKFT PO Last administered on 09:08; Start 12/20/16 at 08:00 Pneumococcal Polyvalent Vaccine (Pneumovax 23) 0.5 ml ONCE ONCE VAX IM Last administered on 12/21/16 15:00; Start 12/19/16 at 18:00; Stop 12/19/16 at 18 :01; Status DC Diphenhydramine HCl (Benadryl) 25 mg PRN Q6HRS PRN PO ITCHING Last administered on 12/21/16 21:50; Start 12/19/16 at 19:15 Albuterol Sulfate (Ventolin Neb Soln) 2.5 mg PRN Q4HRS PRN NEB SHORTNESS OF BREATH Last administered on 12/21/16 22:56; Start 12/19/16 at 22:00 Famotidine (Pepcid) 20 mg QHS PO ; Start 12/21/16 at 21:00 Acetaminophen (Tylenol) 650 mg PRN Q6HRS PRN PO FEVER; Start 12/21/16 at 15:00 Ondansetron HCl (Zofran) 4 mg PRN Q6HRS PRN IV NAUSEA/VOMITING; Start at 15:00 Morphine Sulfate 2 mg PRN Q2HR PRN IV PAIN; Start 12/21/16 at 15:00 Tramadol HCl (Ultram) 50 mg PRN Q6HRS PRN PO PAIN; Start 12/21/16 at 15:00 Hydralazine HCl (Apresoline Inj) 10 mg PRN Q4HRS PRN IVP ELEVATED BP, SEE COMMENTS; Start 12/21/16 at 15:00 Docusate Sodium (Colace) 100 mg PRN DAILY PRN PO CONSTIPATION; Start 12/21/16 at 15:00 Metronidazole (Flagyl) 500 mg Q12HR PO Last administered on 12/22/16 09:15; Start 12/22/16 at 09:00 Active Scripts Active Prednisone 10 Mg Tablet 30 Mg PO DAILY 30 Days Aspirin Ec (Aspirin) 81 Mg Tablet. 81 Mg PO DAILYWBKFT 30 Days Hydroxychloroquine Sulfate 200 Mg Tablet 200 Mg PO BID 30 Days Vitals/I & O Vital Sign - Last 24 Hours 12/21/16 12/21/16 12/21/16 12/21/16 19:00 20:00 22:56 23:00 Temp 98.1 95.5 98.1 95.5 Pulse 108 102 Resp 18 B/P (MAP) 120/81 (94) 105/64 (78) Pulse Ox 92 94 O2 Delivery Nasal Cannula Nasal Cannula Nasal Cannula Nasal Cannula O2 Flow Rate 2.0 2.0 4.0 2.0 12/22/16 12/22/16 03:00 07:00 Temp 97.7 98.4 97.7 98.4 Pulse 89 85 Resp 18 18 B/P (MAP) 109/85 (93) 112/84 (93) Pulse Ox 98 94 O2 Delivery Nasal Cannula Nasal Cannula O2 Flow Rate 2.0 2.0 Intake and Output 12/21/16 12/21/16 12/22/16 15:00 23:00 07:00 Intake Total 600 ml 1340 ml 720 ml Balance 600 ml 1340 ml 720 ml GINA ALMAZAN MD Dec 22, 2016 15:25
[2016-12-22] MEDS: ALBUTEROL SULFATE 2.5 MG/3 ML NEBU. NEB PRN (15:26)
[2016-12-22] MEDS: IPRATRPIUM/ALBUTEROL 0.5/2.5MG 3 ML NEBU. NEB SCH ×2 (16:00→20:00)
[2016-12-22 19:00] VITALS: BP 101/72
[2016-12-22] MEDS: FAMOTIDINE 20 MG TABLET. PO SCH (21:00)
[2016-12-22] MEDS: ENOXAPARIN 40 MG/0.4 ML SYRINGE. SQ SCH (21:45)
[2016-12-22] MEDS: diphenhydrAMINE HCL 25 MG CAPSULE PO PRN (21:46)
[2016-12-22 23:00] VITALS: BP 96/62
[2016-12-23 03:00] VITALS: BP 87/52
[2016-12-23 04:48] LABS: BASO % 1 % (0-3); EOS % 0 % (0-3); HEMATOCRIT 36.5 % (36.0-47.0); HEMOGLOBIN 11.2 g/dL (12.0-15.5); LYMPH # 2.4 x10^3/uL (1.0-4.8); LYMPH % 33 % (24-48); MEAN CORPUSCULAR HEMOGLOBIN 25 pg (25-35); MEAN CORPUSCULAR HGB CONC 31 g/dL (31-37); MEAN CORPUSCULAR VOLUME 80 fL (79-100); MONO % 14 % (0-9); NEUT % 52 % (31-73); PLATELET COUNT 187 x10^3/uL (140-400); RED BLOOD COUNT 4.57 x10^6/uL (3.50-5.40); RED CELL DISTRIBUTION WIDTH 20.6 % (11.5-14.5); WHITE BLOOD COUNT 7.1 x10^3/uL (4.0-11.0)
[2016-12-23 04:57] LABS: BLOOD UREA NITROGEN 18 mg/dL (7-20); CALCIUM 9.6 mg/dL (8.5-10.1); CHLORIDE 101 mmol/L (98-107); CREATININE 0.7 mg/dL (0.6-1.0); GLUCOSE 86 mg/dL (70-99); POTASSIUM 4.6 mmol/L (3.5-5.1); SODIUM 142 mmol/L (136-145)
[2016-12-23 05:09] LABS: CARBON DIOXIDE > 45 mmol/L (21-32)
[2016-12-23 07:00] VITALS: BP 105/74
[2016-12-23] MEDS: IPRATRPIUM/ALBUTEROL 0.5/2.5MG 3 ML NEBU. NEB SCH ×4 (07:23→19:12)
[2016-12-23] MEDS: HYDROXYCHLOROQUINE 200 MG TABLET PO SCH ×2 (08:19→22:20)
[2016-12-23] MEDS: ASPIRIN ENTERIC COATED 81 MG TABLET.DR. PO SCH (08:19)
[2016-12-23] MEDS: POTASSIUM CHLORIDE 20 MEQ TABLET.ER. PO SCH (08:20)
[2016-12-23] MEDS: metroNIDAZOLE 500 MG TABLET PO SCH ×2 (08:20→22:30)
[2016-12-23] MEDS: predniSONE 10 MG TABLET PO SCH (08:20)
[2016-12-23] MEDS: FUROSEMIDE 40 MG/4 ML VIAL. IVP SCH (08:21)
[2016-12-23 11:00] VITALS: BP 129/92
--- NOTE | 2016-12-23 13:26 | PDOC ---
PROGRESS NOTES Chief Complaint Chief Complaint acute on chronic resp failure with hypoxia Interstitial pulmonary fibrosis severe PHTN severe TR Bronchiectasis Lupus CHF right side, acute on chronic mild malnutrition trichomonas, bacteria vaginitis plan: fu with pulm, card NC lasix 40mg iv daily, consider to change to 40mg po daily if ok with card on prednisone 30mg daily dvt, gi ppx wet prep given c/o vaginal discharge, add flagyl po bid x7ds check gonarrhea echo EF ok, but right side CHF with severe TR, PHTN dc in 1-2ds. History of Present Illness History of Present Illness Pt is a pleasant 46 year old female who presents with interstitial pulmonary fibrosis and bronchiectasis. She has a hx of Lupus and CHF. Pt was seen at bedside in [facility]. Pt is being followed by cardiology and pulmonology. Will continue ventimask, nebulizers, and lasix. Will continue to monitor. ROS: no fever, chills, chest pain cont some sob, NC 2-4L, home o2 2l low BP sometime bl leg edema better Vitals Vitals Vital Signs Date Time Temp Pulse Resp B/P (MAP) Pulse Ox O2 Delivery O2 Flow Rate FiO2 12/23/16 11:07 Nasal Cannula 4.0 12/23/16 11:00 97.9 98 16 129/92 (104) 96 97.9 Physical Exam General: Alert, Oriented X3, Cooperative, mild distress, moderate distress Heart: Regular rate, Normal S1, Normal S2, Other (Mitral murmur) Lungs: Crackles (bl mild bases) Abdomen: Normal bowel sounds Extremities: No clubbing, Other (bl 2 + pitting edema) Skin: No rashes, No breakdown Labs LABS Laboratory Tests Test 12/23/16 04:20 White Blood Count 7.1 x10^3/uL (4.0-11.0) Red Blood Count 4.57 x10^6/uL (3.50-5.40) Hemoglobin 11.2 g/dL (12.0-15.5) Hematocrit 36.5 % (36.0-47.0) Mean Corpuscular Volume 80 fL (79-100) Mean Corpuscular Hemoglobin 25 pg (25-35) Mean Corpuscular Hemoglobin Concent 31 g/dL (31-37) Red Cell Distribution Width 20.6 % (11.5-14.5) Platelet Count 187 x10^3/uL (140-400) Neutrophils (%) (Auto) 52 % (31-73) Lymphocytes (%) (Auto) 33 % (24-48) Monocytes (%) (Auto) 14 % (0-9) Eosinophils (%) (Auto) 0 % (0-3) Basophils (%) (Auto) 1 % (0-3) Neutrophils # (Auto) 3.7 x10^3uL (1.8-7.7) Lymphocytes # (Auto) 2.4 x10^3/uL (1.0-4.8) Monocytes # (Auto) 1.0 x10^3/uL (0.0-1.1) Eosinophils # (Auto) 0.0 x10^3/uL (0.0-0.7) Basophils # (Auto) 0.0 x10^3/uL (0.0-0.2) Sodium Level 142 mmol/L (136-145) Potassium Level 4.6 mmol/L (3.5-5.1) Chloride Level 101 mmol/L (98-107) Carbon Dioxide Level > 45 mmol/L (21-32) Anion Gap (6-14) Blood Urea Nitrogen 18 mg/dL (7-20) Creatinine 0.7 mg/dL (0.6-1.0) Estimated GFR (Cockcroft-Gault) 110.0 Glucose Level 86 mg/dL (70-99) Calcium Level 9.6 mg/dL (8.5-10.1) Comment Review of Relevant I have reviewed the following items ludmila (where applicable) has been applied. Labs Laboratory Tests Test 12/22/16 04:30 12/23/16 04:20 White Blood Count 6.9 x10^3/uL (4.0-11.0) 7.1 x10^3/uL (4.0-11.0) Red Blood Count 4.59 x10^6/uL (3.50-5.40) 4.57 x10^6/uL (3.50-5.40) Hemoglobin 11.3 g/dL (12.0-15.5) 11.2 g/dL (12.0-15.5) Hematocrit 36.9 % (36.0-47.0) 36.5 % (36.0-47.0) Mean Corpuscular Volume 80 fL (79-100) 80 fL (79-100) Mean Corpuscular Hemoglobin 25 pg (25-35) 25 pg (25-35) Mean Corpuscular Hemoglobin Concent 31 g/dL (31-37) 31 g/dL (31-37) Red Cell Distribution Width 21.3 % (11.5-14.5) 20.6 % (11.5-14.5) Platelet Count 175 x10^3/uL (140-400) 187 x10^3/uL (140-400) Neutrophils (%) (Auto) 56 % (31-73) 52 % (31-73) Lymphocytes (%) (Auto) 30 % (24-48) 33 % (24-48) Monocytes (%) (Auto) 13 % (0-9) 14 % (0-9) Eosinophils (%) (Auto) 1 % (0-3) 0 % (0-3) Basophils (%) (Auto) 1 % (0-3) 1 % (0-3) Neutrophils # (Auto) 3.9 x10^3uL (1.8-7.7) 3.7 x10^3uL (1.8-7.7) Lymphocytes # (Auto) 2.1 x10^3/uL (1.0-4.8) 2.4 x10^3/uL (1.0-4.8) Monocytes # (Auto) 0.9 x10^3/uL (0.0-1.1) 1.0 x10^3/uL (0.0-1.1) Eosinophils # (Auto) 0.0 x10^3/uL (0.0-0.7) 0.0 x10^3/uL (0.0-0.7) Basophils # (Auto) 0.1 x10^3/uL (0.0-0.2) 0.0 x10^3/uL (0.0-0.2) Sodium Level 143 mmol/L (136-145) 142 mmol/L (136-145) Potassium Level 4.3 mmol/L (3.5-5.1) 4.6 mmol/L (3.5-5.1) Chloride Level 101 mmol/L (98-107) 101 mmol/L (98-107) Carbon Dioxide Level 42 mmol/L (21-32) > 45 mmol/L (21-32) Anion Gap 0 (6-14) (6-14) Blood Urea Nitrogen 13 mg/dL (7-20) 18 mg/dL (7-20) Creatinine 0.5 mg/dL (0.6-1.0) 0.7 mg/dL (0.6-1.0) Estimated GFR (Cockcroft-Gault) 162.2 110.0 Glucose Level 84 mg/dL (70-99) 86 mg/dL (70-99) Calcium Level 9.4 mg/dL (8.5-10.1) 9.6 mg/dL (8.5-10.1) Laboratory Tests Test 12/23/16 04:20 White Blood Count 7.1 x10^3/uL (4.0-11.0) Red Blood Count 4.57 x10^6/uL (3.50-5.40) Hemoglobin 11.2 g/dL (12.0-15.5) Hematocrit 36.5 % (36.0-47.0) Mean Corpuscular Volume 80 fL (79-100) Mean Corpuscular Hemoglobin 25 pg (25-35) Mean Corpuscular Hemoglobin Concent 31 g/dL (31-37) Red Cell Distribution Width 20.6 % (11.5-14.5) Platelet Count 187 x10^3/uL (140-400) Neutrophils (%) (Auto) 52 % (31-73) Lymphocytes (%) (Auto) 33 % (24-48) Monocytes (%) (Auto) 14 % (0-9) Eosinophils (%) (Auto) 0 % (0-3) Basophils (%) (Auto) 1 % (0-3) Neutrophils # (Auto) 3.7 x10^3uL (1.8-7.7) Lymphocytes # (Auto) 2.4 x10^3/uL (1.0-4.8) Monocytes # (Auto) 1.0 x10^3/uL (0.0-1.1) Eosinophils # (Auto) 0.0 x10^3/uL (0.0-0.7) Basophils # (Auto) 0.0 x10^3/uL (0.0-0.2) Sodium Level 142 mmol/L (136-145) Potassium Level 4.6 mmol/L (3.5-5.1) Chloride Level 101 mmol/L (98-107) Carbon Dioxide Level > 45 mmol/L (21-32) Anion Gap (6-14) Blood Urea Nitrogen 18 mg/dL (7-20) Creatinine 0.7 mg/dL (0.6-1.0) Estimated GFR (Cockcroft-Gault) 110.0 Glucose Level 86 mg/dL (70-99) Calcium Level 9.6 mg/dL (8.5-10.1) Microbiology 12/21/16 Wet Prep - Final, Complete 12/21/16 Urine Culture - Final, Complete 12/21/16 Urine Culture Result 1 (BRIANA) - Final, Complete Medications Current Medications Enoxaparin Sodium (Lovenox 40mg Syringe) 40 mg Q24H SQ Last administered on 21:45; Start 12/19/16 at 21:00 Potassium Chloride 50 ml @ 50 mls/hr DAILY IV ; Start 12/20/16 at 09:00; Status UNV Furosemide (Lasix) 40 mg DAILY IVP Last administered on 12/23/16 08:21; Start 12/20/16 at 09:00 Aspirin (Ecotrin) 81 mg DAILYWBKFT PO Last administered on 12/23/16 08:19; Start 12/20/16 at 08:00 Hydroxychloroquine Sulfate (Plaquenil) 200 mg BID PO Last administered on 12/23 08:19; Start 12/19/16 at 21:00 Prednisone (Prednisone) 30 mg DAILY PO Last administered on 12/23/16 08:20; Start 12/20/16 at 09:00 Potassium Chloride (Klor-Con) 20 meq DAILYWBKFT PO Last administered on 08:20; Start 12/20/16 at 08:00 Pneumococcal Polyvalent Vaccine (Pneumovax 23) 0.5 ml ONCE ONCE VAX IM Last administered on 12/21/16 15:00; Start 12/19/16 at 18:00; Stop 12/19/16 at 18 :01; Status DC Diphenhydramine HCl (Benadryl) 25 mg PRN Q6HRS PRN PO ITCHING Last administered on 12/22/16 21:46; Start 12/19/16 at 19:15 Albuterol Sulfate (Ventolin Neb Soln) 2.5 mg PRN Q4HRS PRN NEB SHORTNESS OF BREATH Last administered on 12/22/16 15:26; Start 12/19/16 at 22:00 Famotidine (Pepcid) 20 mg QHS PO ; Start 12/21/16 at 21:00 Acetaminophen (Tylenol) 650 mg PRN Q6HRS PRN PO FEVER; Start 12/21/16 at 15:00 Ondansetron HCl (Zofran) 4 mg PRN Q6HRS PRN IV NAUSEA/VOMITING; Start at 15:00 Morphine Sulfate 2 mg PRN Q2HR PRN IV PAIN; Start 12/21/16 at 15:00 Tramadol HCl (Ultram) 50 mg PRN Q6HRS PRN PO PAIN; Start 12/21/16 at 15:00 Hydralazine HCl (Apresoline Inj) 10 mg PRN Q4HRS PRN IVP ELEVATED BP, SEE COMMENTS; Start 12/21/16 at 15:00 Docusate Sodium (Colace) 100 mg PRN DAILY PRN PO CONSTIPATION; Start 12/21/16 at 15:00 Metronidazole (Flagyl) 500 mg Q12HR PO Last administered on 12/23/16 08:20; Start 12/22/16 at 09:00 Albuterol/ Ipratropium (Duoneb) 3 ml RTQID NEB Last administered on 12/23/16 11:06; Start 12/22/16 at 16:00 Active Scripts Active Prednisone 10 Mg Tablet 30 Mg PO DAILY 30 Days Aspirin Ec (Aspirin) 81 Mg Tablet. 81 Mg PO DAILYWBKFT 30 Days Hydroxychloroquine Sulfate 200 Mg Tablet 200 Mg PO BID 30 Days Vitals/I & O Vital Sign - Last 24 Hours 12/22/16 12/22/16 12/22/16 12/22/16 15:00 15:26 19:00 20:00 Temp 98.3 97.9 98.3 97.9 Pulse 114 106 Resp 18 18 B/P (MAP) 112/72 (85) 101/72 (82) Pulse Ox 93 85 90 O2 Delivery Nasal Cannula Nasal Cannula Nasal Cannula Nasal Cannula O2 Flow Rate 2.0 3.0 2.0 3.0 12/22/16 12/23/16 12/23/16 12/23/16 23:00 03:00 07:00 07:22 Temp 97.8 97.7 98.2 97.8 97.7 98.2 Pulse 100 80 69 Resp 18 18 18 B/P (MAP) 96/62 (73) 87/52 (64) 105/74 (84) Pulse Ox 95 95 96 95 O2 Delivery Nasal Cannula Nasal Cannula Nasal Cannula Nasal Cannula O2 Flow Rate 2.0 2.0 2.0 4.0 12/23/16 12/23/16 12/23/16 07:50 11:00 11:07 Temp 97.9 97.9 Pulse 98 Resp 16 B/P (MAP) 129/92 (104) Pulse Ox 96 O2 Delivery Nasal Cannula Nasal Cannula Nasal Cannula O2 Flow Rate 3.0 2.0 4.0 Intake and Output 12/22/16 12/22/16 12/23/16 14:59 22:59 06:59 Intake Total 570 ml 240 ml Output Total 450 ml 150 ml Balance 120 ml 90 ml GINA ALMAZAN MD Dec 23, 2016 13:26
--- NOTE | 2016-12-23 14:29 | PDOC ---
PULMONARY PROGRESS NOTES Subjective no increase SOA Vitals Vital Signs Date Time Temp Pulse Resp B/P (MAP) Pulse Ox O2 Delivery O2 Flow Rate FiO2 12/23/16 11:07 Nasal Cannula 4.0 12/23/16 11:00 97.9 98 16 129/92 (104) 96 97.9 General: Alert, No acute distress Lungs: Crackles (bases) Cardiovascular: S1, S2 Abdomen: Soft Neuro Exam: Alert Extremities: Other (2+edema) Skin: Warm Labs Laboratory Tests Test 12/22/16 04:30 12/23/16 04:20 White Blood Count 6.9 x10^3/uL (4.0-11.0) 7.1 x10^3/uL (4.0-11.0) Red Blood Count 4.59 x10^6/uL (3.50-5.40) 4.57 x10^6/uL (3.50-5.40) Hemoglobin 11.3 g/dL (12.0-15.5) 11.2 g/dL (12.0-15.5) Hematocrit 36.9 % (36.0-47.0) 36.5 % (36.0-47.0) Mean Corpuscular Volume 80 fL (79-100) 80 fL (79-100) Mean Corpuscular Hemoglobin 25 pg (25-35) 25 pg (25-35) Mean Corpuscular Hemoglobin Concent 31 g/dL (31-37) 31 g/dL (31-37) Red Cell Distribution Width 21.3 % (11.5-14.5) 20.6 % (11.5-14.5) Platelet Count 175 x10^3/uL (140-400) 187 x10^3/uL (140-400) Neutrophils (%) (Auto) 56 % (31-73) 52 % (31-73) Lymphocytes (%) (Auto) 30 % (24-48) 33 % (24-48) Monocytes (%) (Auto) 13 % (0-9) 14 % (0-9) Eosinophils (%) (Auto) 1 % (0-3) 0 % (0-3) Basophils (%) (Auto) 1 % (0-3) 1 % (0-3) Neutrophils # (Auto) 3.9 x10^3uL (1.8-7.7) 3.7 x10^3uL (1.8-7.7) Lymphocytes # (Auto) 2.1 x10^3/uL (1.0-4.8) 2.4 x10^3/uL (1.0-4.8) Monocytes # (Auto) 0.9 x10^3/uL (0.0-1.1) 1.0 x10^3/uL (0.0-1.1) Eosinophils # (Auto) 0.0 x10^3/uL (0.0-0.7) 0.0 x10^3/uL (0.0-0.7) Basophils # (Auto) 0.1 x10^3/uL (0.0-0.2) 0.0 x10^3/uL (0.0-0.2) Sodium Level 143 mmol/L (136-145) 142 mmol/L (136-145) Potassium Level 4.3 mmol/L (3.5-5.1) 4.6 mmol/L (3.5-5.1) Chloride Level 101 mmol/L (98-107) 101 mmol/L (98-107) Carbon Dioxide Level 42 mmol/L (21-32) > 45 mmol/L (21-32) Anion Gap 0 (6-14) (6-14) Blood Urea Nitrogen 13 mg/dL (7-20) 18 mg/dL (7-20) Creatinine 0.5 mg/dL (0.6-1.0) 0.7 mg/dL (0.6-1.0) Estimated GFR (Cockcroft-Gault) 162.2 110.0 Glucose Level 84 mg/dL (70-99) 86 mg/dL (70-99) Calcium Level 9.4 mg/dL (8.5-10.1) 9.6 mg/dL (8.5-10.1) Laboratory Tests Test 12/23/16 04:20 White Blood Count 7.1 x10^3/uL (4.0-11.0) Red Blood Count 4.57 x10^6/uL (3.50-5.40) Hemoglobin 11.2 g/dL (12.0-15.5) Hematocrit 36.5 % (36.0-47.0) Mean Corpuscular Volume 80 fL (79-100) Mean Corpuscular Hemoglobin 25 pg (25-35) Mean Corpuscular Hemoglobin Concent 31 g/dL (31-37) Red Cell Distribution Width 20.6 % (11.5-14.5) Platelet Count 187 x10^3/uL (140-400) Neutrophils (%) (Auto) 52 % (31-73) Lymphocytes (%) (Auto) 33 % (24-48) Monocytes (%) (Auto) 14 % (0-9) Eosinophils (%) (Auto) 0 % (0-3) Basophils (%) (Auto) 1 % (0-3) Neutrophils # (Auto) 3.7 x10^3uL (1.8-7.7) Lymphocytes # (Auto) 2.4 x10^3/uL (1.0-4.8) Monocytes # (Auto) 1.0 x10^3/uL (0.0-1.1) Eosinophils # (Auto) 0.0 x10^3/uL (0.0-0.7) Basophils # (Auto) 0.0 x10^3/uL (0.0-0.2) Sodium Level 142 mmol/L (136-145) Potassium Level 4.6 mmol/L (3.5-5.1) Chloride Level 101 mmol/L (98-107) Carbon Dioxide Level > 45 mmol/L (21-32) Anion Gap (6-14) Blood Urea Nitrogen 18 mg/dL (7-20) Creatinine 0.7 mg/dL (0.6-1.0) Estimated GFR (Cockcroft-Gault) 110.0 Glucose Level 86 mg/dL (70-99) Calcium Level 9.6 mg/dL (8.5-10.1) Medications Active Scripts Medications Dose Route/Sig Max Daily Dose Days Date Category Prednisone 10 Mg Tablet 30 Mg PO DAILY 08/25/16 Rx Aspirin Ec (Aspirin) 81 Mg Tablet.dr 81 Mg PO [id number] 08/25/16 Rx Hydroxychloroquine Sulfate 200 Mg Tablet 200 Mg PO BID 11/06/15 Rx Impression . 1. [id number] hypoxic respiratory failure, present upon admission. 2. Acute cor pulmonale 3. 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 Lupus with interstitial lung disease.mild progression 5. Moderate to severe protein malnutrition, present upon admission. 6. Immunocompromise as a consequence of chronic prednisone use and lupus. Plan . 1. diuresis. 2. Repeat echocardiogram with PA pressure of 100 3. Discussed options of possible referral to Dr. Perez for treatment of her pulmonary hypertension at [facility] vs at our office. May need right heart cath as OP. she sees Dr Feldman in office 4. No need for antibiotics 5. Continue p.r.n. nebulized treatments. 6. DVT prophylaxis. 7. home in am 8. PO steroid taper BRYAN HALL MD Dec 23, 2016 14:29
[2016-12-23 15:00] VITALS: BP 157/72
[2016-12-23 19:00] VITALS: BP 107/61
[2016-12-23] MEDS: FAMOTIDINE 20 MG TABLET. PO SCH (21:00)
[2016-12-23] MEDS: diphenhydrAMINE HCL 25 MG CAPSULE PO PRN (22:19)
[2016-12-23] MEDS: ENOXAPARIN 40 MG/0.4 ML SYRINGE. SQ SCH (22:20)
[2016-12-23 23:00] VITALS: BP 102/69
[2016-12-24 03:00] VITALS: BP 100/73
[2016-12-24 05:18] LABS: BASO % 1 % (0-3); EOS % 0 % (0-3); HEMATOCRIT 35.6 % (36.0-47.0); HEMOGLOBIN 10.8 g/dL (12.0-15.5); LYMPH # 2.8 x10^3/uL (1.0-4.8); LYMPH % 34 % (24-48); MEAN CORPUSCULAR HEMOGLOBIN 25 pg (25-35); MEAN CORPUSCULAR HGB CONC 30 g/dL (31-37); MEAN CORPUSCULAR VOLUME 81 fL (79-100); MONO % 14 % (0-9); NEUT % 52 % (31-73); PLATELET COUNT 208 x10^3/uL (140-400); RED BLOOD COUNT 4.42 x10^6/uL (3.50-5.40); RED CELL DISTRIBUTION WIDTH 20.6 % (11.5-14.5); WHITE BLOOD COUNT 8.3 x10^3/uL (4.0-11.0)
[2016-12-24 05:59] LABS: CALCIUM 9.3 mg/dL (8.5-10.1); CREATININE 0.7 mg/dL (0.6-1.0); POTASSIUM 4.4 mmol/L (3.5-5.1)
[2016-12-24 07:00] VITALS: BP 96/67
[2016-12-24] MEDS: IPRATRPIUM/ALBUTEROL 0.5/2.5MG 3 ML NEBU. NEB SCH ×3 (07:32→15:50)
[2016-12-24] MEDS ORDERED: FUROSEMIDE 40 MG TABLET. PO SCH (10:00)
[2016-12-24] MEDS: metroNIDAZOLE 500 MG TABLET PO SCH (10:19)
[2016-12-24] MEDS: HYDROXYCHLOROQUINE 200 MG TABLET PO SCH (10:20)
[2016-12-24] MEDS: predniSONE 10 MG TABLET PO SCH (10:20)
[2016-12-24] MEDS: POTASSIUM CHLORIDE 20 MEQ TABLET.ER. PO SCH (10:20)
[2016-12-24] MEDS: ASPIRIN ENTERIC COATED 81 MG TABLET.DR. PO SCH (10:20)
[2016-12-24 11:00] VITALS: BP 130/86
--- NOTE | 2016-12-24 12:18 | PDOC ---
PULMONARY PROGRESS NOTES Subjective no increase SOA Vitals Vital Signs Date Time Temp Pulse Resp B/P (MAP) Pulse Ox O2 Delivery O2 Flow Rate FiO2 12/24/16 11:27 92 Nasal Cannula 4.0 12/24/16 07:00 98.5 101 18 96/67 (77) 98.5 General: Alert, No acute distress Lungs: Crackles (bases) Cardiovascular: S1, S2 Abdomen: Soft Neuro Exam: Alert Extremities: Other (trace) Skin: Warm Labs Laboratory Tests Test 12/23/16 04:20 12/24/16 03:50 12/24/16 03:55 White Blood Count 7.1 x10^3/uL (4.0-11.0) 8.3 x10^3/uL (4.0-11.0) Red Blood Count 4.57 x10^6/uL (3.50-5.40) 4.42 x10^6/uL (3.50-5.40) Hemoglobin 11.2 g/dL (12.0-15.5) 10.8 g/dL (12.0-15.5) Hematocrit 36.5 % (36.0-47.0) 35.6 % (36.0-47.0) Mean Corpuscular Volume 80 fL (79-100) 81 fL (79-100) Mean Corpuscular Hemoglobin 25 pg (25-35) 25 pg (25-35) Mean Corpuscular Hemoglobin Concent 31 g/dL (31-37) 30 g/dL (31-37) Red Cell Distribution Width 20.6 % (11.5-14.5) 20.6 % (11.5-14.5) Platelet Count 187 x10^3/uL (140-400) 208 x10^3/uL (140-400) Neutrophils (%) (Auto) 52 % (31-73) 52 % (31-73) Lymphocytes (%) (Auto) 33 % (24-48) 34 % (24-48) Monocytes (%) (Auto) 14 % (0-9) 14 % (0-9) Eosinophils (%) (Auto) 0 % (0-3) 0 % (0-3) Basophils (%) (Auto) 1 % (0-3) 1 % (0-3) Neutrophils # (Auto) 3.7 x10^3uL (1.8-7.7) 4.3 x10^3uL (1.8-7.7) Lymphocytes # (Auto) 2.4 x10^3/uL (1.0-4.8) 2.8 x10^3/uL (1.0-4.8) Monocytes # (Auto) 1.0 x10^3/uL (0.0-1.1) 1.1 x10^3/uL (0.0-1.1) Eosinophils # (Auto) 0.0 x10^3/uL (0.0-0.7) 0.0 x10^3/uL (0.0-0.7) Basophils # (Auto) 0.0 x10^3/uL (0.0-0.2) 0.0 x10^3/uL (0.0-0.2) Sodium Level 142 mmol/L (136-145) 144 mmol/L (136-145) Potassium Level 4.6 mmol/L (3.5-5.1) 4.4 mmol/L (3.5-5.1) Chloride Level 101 mmol/L (98-107) 100 mmol/L (98-107) Carbon Dioxide Level > 45 mmol/L (21-32) 43 mmol/L (21-32) Anion Gap (6-14) 1 (6-14) Blood Urea Nitrogen 18 mg/dL (7-20) 19 mg/dL (7-20) Creatinine 0.7 mg/dL (0.6-1.0) 0.7 mg/dL (0.6-1.0) Estimated GFR (Cockcroft-Gault) 110.0 110.0 Glucose Level 86 mg/dL (70-99) 82 mg/dL (70-99) Calcium Level 9.6 mg/dL (8.5-10.1) 9.3 mg/dL (8.5-10.1) Laboratory Tests Test 12/24/16 03:50 12/24/16 03:55 Sodium Level 144 mmol/L (136-145) Potassium Level 4.4 mmol/L (3.5-5.1) Chloride Level 100 mmol/L (98-107) Carbon Dioxide Level 43 mmol/L (21-32) Anion Gap 1 (6-14) Blood Urea Nitrogen 19 mg/dL (7-20) Creatinine 0.7 mg/dL (0.6-1.0) Estimated GFR (Cockcroft-Gault) 110.0 Glucose Level 82 mg/dL (70-99) Calcium Level 9.3 mg/dL (8.5-10.1) White Blood Count 8.3 x10^3/uL (4.0-11.0) Red Blood Count 4.42 x10^6/uL (3.50-5.40) Hemoglobin 10.8 g/dL (12.0-15.5) Hematocrit 35.6 % (36.0-47.0) Mean Corpuscular Volume 81 fL (79-100) Mean Corpuscular Hemoglobin 25 pg (25-35) Mean Corpuscular Hemoglobin Concent 30 g/dL (31-37) Red Cell Distribution Width 20.6 % (11.5-14.5) Platelet Count 208 x10^3/uL (140-400) Neutrophils (%) (Auto) 52 % (31-73) Lymphocytes (%) (Auto) 34 % (24-48) Monocytes (%) (Auto) 14 % (0-9) Eosinophils (%) (Auto) 0 % (0-3) Basophils (%) (Auto) 1 % (0-3) Neutrophils # (Auto) 4.3 x10^3uL (1.8-7.7) Lymphocytes # (Auto) 2.8 x10^3/uL (1.0-4.8) Monocytes # (Auto) 1.1 x10^3/uL (0.0-1.1) Eosinophils # (Auto) 0.0 x10^3/uL (0.0-0.7) Basophils # (Auto) 0.0 x10^3/uL (0.0-0.2) Medications Active Scripts Medications Dose Route/Sig Max Daily Dose Days Date Category Prednisone 10 Mg Tablet 30 Mg PO DAILY 08/25/16 Rx Aspirin Ec (Aspirin) 81 Mg Tablet.dr 81 Mg PO DAILYWBKFT 08/25/16 Rx Hydroxychloroquine Sulfate 200 Mg Tablet 200 Mg PO BID 11/06/15 Rx Impression . 1. [id number] hypoxic respiratory failure, present upon admission. 2. Acute cor pulmonale 3. 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 Lupus with interstitial lung disease.mild progression 5. Moderate to severe protein malnutrition, present upon admission. 6. Immunocompromise as a consequence of chronic prednisone use and lupus. Plan . 1. diuresis. can go home on PO lasix 20 mg/ 10 meq K for 2 weeks 2. Repeat echocardiogram with PA pressure of 100 3. Discussed options of possible referral to Dr. Perez for treatment of her pulmonary hypertension at [facility] at our office. May need right heart cath as OP. she sees Dr Feldman in office / f/u with him in Jan 4. No need for antibiotics 5. Continue p.r.n. nebulized treatments. 6. DVT prophylaxis. 7. home today 8. PO steroid taper BRYAN HALL MD Dec 24, 2016 12:18
[2016-12-24] MEDS ORDERED: METR500T PO (12:30)
[2016-12-24] MEDS ORDERED: POTA10TA12 PO (12:30)
[2016-12-24] MEDS ORDERED: FURO20TA3 PO (12:30)
[2016-12-24] MEDS ORDERED: FAMO20TA5 PO (12:30)
--- NOTE | 2016-12-24 12:37 | PDOC3 ---
Discharge Summary [facility] Date of Admission: Dec 19, 2016 Discharge Date: Dec 24, 2016 Admitting Diagnosis acute on chronic resp failure with hypoxia Interstitial pulmonary fibrosis severe PHTN severe TR Bronchiectasis Lupus CHF right side, acute on chronic mild malnutrition trichomonas, bacteria vaginitis Problems: CONSULTS pulm card Brief Hospital Course Ms. Menezes is a 46 old F, with severe ILD with severe PHTN, right side CHF, came for sob, and bl leg edema. Pt is on home o2 4 L. she required venti marsk, then NC 4L, now ranging from 2-4 L. edema better with lasix iv. dc home with lasix 20mg daily, taper prednisone. also + vaginitis, flagyl x7ds. dc time 35min General: Alert, Oriented X3, Cooperative, mild distress, moderate distress Heart: Regular rate, Normal S1, Normal S2, Other (Mitral murmur) Lungs: Crackles (bl mild bases) Abdomen: Normal bowel sounds Extremities: No clubbing, Other (bl 1 + pitting edema) Skin: No rashes, No breakdown Patient History: FH: emphysema 32 MOTHER Family history: Diabetes mellitus (situation) 33 FATHER 32 MOTHER Family history: Hypertension (situation) 33 FATHER 32 MOTHER Problems: Disposition home CONDITION AT DISCHARGE: Improved Diet cardiac Scheduled Aspirin (Aspirin Ec), 81 MG PO DAILYWBKFT Famotidine (Famotidine), 20 MG PO QHS Furosemide (Furosemide), 20 MG PO DAILY Hydroxychloroquine Sulfate (Hydroxychloroquine Sulfate), 200 MG PO BID Metronidazole (Flagyl), 500 MG PO Q12HR Potassium Chloride (Klor-Con M10), 10 MEQ PO DAILYWBKFT Discontinued Medications Prednisone (Prednisone), 30 MG PO DAILY Follow Up pulm in 2 weeks GINA ALMAZAN MD Dec 24, 2016 12:37
[2016-12-25] MEDS ORDERED: POTASSIUM CHLORIDE 10 MEQ TABLET.ER. PO SCH (08:00)
[2016-12-25] MEDS ORDERED: FUROSEMIDE 20 MG TABLET PO SCH (09:00)
== END 2016-12-24 17:50 | disposition home or self-care (01) | DRG 189 ==
LOC: 4 NORTH 16:32
PROVIDERS: ADMIT Internal Medicine; ATTEND Internal Medicine
DX: J96.21 Acute and chronic respiratory failure with hypoxia (principal); I26.09 Other pulmonary embolism with acute cor pulmonale; E43 Unspecified severe protein-calorie malnutrition; I50.43 Acute on chronic combined systolic (congestive) and diastolic (congestive) heart failure; I27.29 Other secondary pulmonary hypertension; J84.112 Idiopathic pulmonary fibrosis; J43.9 Emphysema, unspecified; A59.9 Trichomoniasis, unspecified; I34.0 Nonrheumatic mitral (valve) insufficiency; M19.90 Unspecified osteoarthritis, unspecified site; J45.909 Unspecified asthma, uncomplicated; J47.9 Bronchiectasis, uncomplicated; N76.0 Acute vaginitis; Z99.81 Dependence on supplemental oxygen; Z79.52 Long term (current) use of systemic steroids; Z82.49 Family history of ischemic heart disease and other diseases of the circulatory system; Z83.3 Family history of diabetes mellitus; Z68.24 Body mass index [BMI] 24.0-24.9, adult
CPT/HCPCS: 36415; 80048; 80053; 81001; 85025; 87086; 87641; 90732; 93306; 94250; 94640; 94760; J1650; J1940; J7512; J7613; J7620; Q0111; Q0163; 97110; 97116; 97530

== ENCOUNTER 2017-01-29 20:18 | Inpatient (IN) | payer OTHER ==
[2017-01-29] MEDS: FUROSEMIDE 20 MG/2 ML VIAL. IVP (21:01)
[2017-01-29 21:05] LABS: ADD MAN DIFF? NO
[2017-01-29] MEDS: IPRATRPIUM/ALBUTEROL 0.5/2.5MG 3 ML NEBU. NEB (21:10)
[2017-01-29 21:13] LABS: OBC FLU VALID
[2017-01-29 21:14] LABS: BASO % 1 % (0-3); EOS % 1 % (0-3); HEMATOCRIT 38.9 % (36.0-47.0); HEMOGLOBIN 12.1 g/dL (12.0-15.5); LYMPH # 1.3 x10^3/uL (1.0-4.8); LYMPH % 18 % (24-48); MEAN CORPUSCULAR HEMOGLOBIN 25 pg (25-35); MEAN CORPUSCULAR HGB CONC 31 g/dL (31-37); MEAN CORPUSCULAR VOLUME 82 fL (79-100); MONO % 6 % (0-9); NEUT % 75 % (31-73); PLATELET COUNT 270 x10^3/uL (140-400); RED BLOOD COUNT 4.77 x10^6/uL (3.50-5.40); RED CELL DISTRIBUTION WIDTH 19.3 % (11.5-14.5); WHITE BLOOD COUNT 7.5 x10^3/uL (4.0-11.0)
[2017-01-29 21:22] LABS: ANION GAP 5 (6-14); BLOOD UREA NITROGEN 14 mg/dL (7-20); BUN/CREATININE RATIO 23 (6-20); CALCIUM 8.5 mg/dL (8.5-10.1); CARBON DIOXIDE 36 mmol/L (21-32); CHLORIDE 102 mmol/L (98-107); CREATININE 0.6 mg/dL (0.6-1.0); GFR 131.4; GLUCOSE 189 mg/dL (70-99); SODIUM 143 mmol/L (136-145)
[2017-01-29 21:25] LABS: ALBUMIN 3.3 g/dL (3.4-5.0); ALBUMIN/GLOBULIN RATIO 0.9 (1.0-1.7); ALK PHOS 70 U/L (46-116); ALT (SGPT) 21 U/L (14-59); AST (SGOT) 20 U/L (15-37); TOTAL BILIRUBIN 0.7 mg/dL (0.2-1.0)
[2017-01-29 21:26] LABS: TROPONINI 0.021 ng/mL (0.000-0.055)
[2017-01-29 21:32] LABS: CKMB INDEX 3.2 % (0-4); CKMB MASS 2.5 ng/mL (0.0-3.6); CREATINE KINASE 78 U/L (26-192)
[2017-01-29 21:32] LABS: NT-PRO BNP 2194 pg/mL (0-124)
[2017-01-29] MEDS ORDERED: ACETAMINOPHEN 325 MG TABLET. PO (22:15)
[2017-01-29] MEDS ORDERED: ONDANSETRON PF 4 MG/2 ML VIAL. IV (22:15)
[2017-01-29] MEDS: IV NORMAL SALINE 1000ML BAG 1,000 ML IV (22:30)
[2017-01-30] MEDS ORDERED: INFLUENZA VAX SCREEN BY RX. MC (01:30)
[2017-01-30 02:17] LABS: BILIRUBIN,URINE NEGATIVE (NEG); GLUCOSE,URINE NEGATIVE (NEG); NITRITE,URINE NEGATIVE (NEG); PH,URINE 5.5; PROTEIN,URINE NEGATIVE (NEG-TRACE); UROBILINOGEN,URINE 0.2 mg/dL (0.2 mg/dL)
[2017-01-30] MEDS: IPRATRPIUM/ALBUTEROL 0.5/2.5MG 3 ML NEBU. NEB ×4 (02:19→19:00)
[2017-01-30 02:34] LABS: BACTERIA,URINE 0 /HPF (0-FEW); RBC,URINE 0 /HPF (0-2); SQUAMOUS EPITHELIAL CELL,UR FEW /LPF
[2017-01-30 04:38] LABS: ADD MAN DIFF? NO
[2017-01-30 04:50] LABS: BASO # 0.1 x10^3/uL (0.0-0.2); BASO % 1 % (0-3); EOS % 1 % (0-3); HEMATOCRIT 36.6 % (36.0-47.0); HEMOGLOBIN 11.1 g/dL (12.0-15.5); LYMPH % 29 % (24-48); MEAN CORPUSCULAR HEMOGLOBIN 25 pg (25-35); MEAN CORPUSCULAR HGB CONC 30 g/dL (31-37); MEAN CORPUSCULAR VOLUME 83 fL (79-100); MONO % 10 % (0-9); NEUT % 59 % (31-73); PLATELET COUNT 235 x10^3/uL (140-400); RED BLOOD COUNT 4.41 x10^6/uL (3.50-5.40); RED CELL DISTRIBUTION WIDTH 19.2 % (11.5-14.5)
[2017-01-30 05:08] LABS: ANION GAP 3 (6-14); BLOOD UREA NITROGEN 17 mg/dL (7-20); CALCIUM 8.2 mg/dL (8.5-10.1); CARBON DIOXIDE 37 mmol/L (21-32); CHLORIDE 102 mmol/L (98-107); CREATININE 0.6 mg/dL (0.6-1.0); GFR 131.4; GLUCOSE 95 mg/dL (70-99); POTASSIUM 4.5 mmol/L (3.5-5.1); SODIUM 142 mmol/L (136-145)
[2017-01-30] MEDS ORDERED: FUROSEMIDE 20 MG TABLET PO (09:00)
[2017-01-30] MEDS: ASPIRIN ENTERIC COATED 81 MG TABLET.DR. PO (09:43)
[2017-01-30] MEDS: POTASSIUM CHLORIDE 10 MEQ TABLET.ER. PO (09:44)
[2017-01-30] MEDS: FUROSEMIDE 40 MG TABLET. PO (09:44)
[2017-01-30] MEDS: HYDROXYCHLOROQUINE 200 MG TABLET PO ×2 (09:44→21:35)
[2017-01-30] MEDS: IV NORMAL SALINE 1000ML BAG 1,000 ML IV (18:30)
[2017-01-30 20:28] LABS: MRSA BY PCR Negative (Negative)
[2017-01-30] MEDS: diphenhydrAMINE HCL 25 MG CAPSULE PO (21:35)
[2017-01-30] MEDS: FAMOTIDINE 20 MG TABLET. PO (21:35)
[2017-01-31] MEDS: IPRATRPIUM/ALBUTEROL 0.5/2.5MG 3 ML NEBU. NEB ×5 (08:27→23:34)
[2017-01-31] MEDS: HYDROXYCHLOROQUINE 200 MG TABLET PO ×2 (08:58→20:22)
[2017-01-31] MEDS: ASPIRIN ENTERIC COATED 81 MG TABLET.DR. PO (08:58)
[2017-01-31] MEDS: POTASSIUM CHLORIDE 10 MEQ TABLET.ER. PO (08:58)
[2017-01-31] MEDS: FUROSEMIDE 40 MG TABLET. PO (08:58)
[2017-01-31] MEDS: guaiFENesin DM 200MG/20MG 10 ML SYRUP PO ×2 (10:50→20:22)
[2017-01-31] MEDS: ALBUTEROL SULFATE 2.5 MG/3 ML NEBU. NEB ×2 (11:15→23:31)
[2017-01-31] MEDS: FUROSEMIDE 20 MG/2 ML VIAL. IVP (16:07)
[2017-01-31] MEDS: diphenhydrAMINE HCL 25 MG CAPSULE PO (20:22)
[2017-01-31] MEDS: FAMOTIDINE 20 MG TABLET. PO (20:24)
[2017-02-01] MEDS: IPRATRPIUM/ALBUTEROL 0.5/2.5MG 3 ML NEBU. NEB ×4 (07:19→19:50)
[2017-02-01] MEDS: HYDROXYCHLOROQUINE 200 MG TABLET PO ×2 (09:09→20:51)
[2017-02-01] MEDS: FUROSEMIDE 40 MG TABLET. PO (09:09)
[2017-02-01] MEDS: ASPIRIN ENTERIC COATED 81 MG TABLET.DR. PO (09:09)
[2017-02-01] MEDS: POTASSIUM CHLORIDE 10 MEQ TABLET.ER. PO (09:09)
[2017-02-01] MEDS: guaiFENesin DM 200MG/20MG 10 ML SYRUP PO ×2 (09:10→20:54)
[2017-02-01] MEDS: FUROSEMIDE 20 MG/2 ML VIAL. IVP (12:21)
[2017-02-01] MEDS: FLU VACC QS2017-18 (36MOS+)/PF 0.5 ML SYRINGE. VAX IM (12:22)
[2017-02-01] MEDS: diphenhydrAMINE HCL 25 MG CAPSULE PO (20:51)
[2017-02-01] MEDS: FAMOTIDINE 20 MG TABLET. PO (20:51)
[2017-02-01] MEDS: ALBUTEROL SULFATE 2.5 MG/3 ML NEBU. NEB (23:06)
[2017-02-02 04:37] LABS: ADD MAN DIFF? NO
[2017-02-02 04:39] LABS: BASO # 0.1 x10^3/uL (0.0-0.2); BASO % 1 % (0-3); EOS % 1 % (0-3); HEMATOCRIT 34.2 % (36.0-47.0); HEMOGLOBIN 10.4 g/dL (12.0-15.5); LYMPH # 1.5 x10^3/uL (1.0-4.8); LYMPH % 22 % (24-48); MEAN CORPUSCULAR HEMOGLOBIN 25 pg (25-35); MEAN CORPUSCULAR HGB CONC 31 g/dL (31-37); MEAN CORPUSCULAR VOLUME 82 fL (79-100); MONO % 10 % (0-9); NEUT % 66 % (31-73); PLATELET COUNT 190 x10^3/uL (140-400); RED BLOOD COUNT 4.16 x10^6/uL (3.50-5.40); WHITE BLOOD COUNT 6.9 x10^3/uL (4.0-11.0)
[2017-02-02 05:16] LABS: ALBUMIN/GLOBULIN RATIO 0.9 (1.0-1.7); ALK PHOS 57 U/L (46-116); ALT (SGPT) 18 U/L (14-59); ANION GAP 3 (6-14); AST (SGOT) 18 U/L (15-37); BLOOD UREA NITROGEN 15 mg/dL (7-20); BUN/CREATININE RATIO 30 (6-20); CALCIUM 8.2 mg/dL (8.5-10.1); CARBON DIOXIDE 38 mmol/L (21-32); CHLORIDE 100 mmol/L (98-107); CREATININE 0.5 mg/dL (0.6-1.0); GFR 162.2; GLUCOSE 100 mg/dL (70-99); POTASSIUM 4.1 mmol/L (3.5-5.1); SODIUM 141 mmol/L (136-145); TOTAL BILIRUBIN 0.5 mg/dL (0.2-1.0); TOTAL PROTEIN 6.3 g/dL (6.4-8.2)
[2017-02-02] MEDS: IPRATRPIUM/ALBUTEROL 0.5/2.5MG 3 ML NEBU. NEB ×5 (06:00→18:24)
[2017-02-02] MEDS: FUROSEMIDE 40 MG TABLET. PO (09:00)
[2017-02-02] MEDS ORDERED: LIDOCAINE 2% 20 ML VIAL. (16:21)
[2017-02-02] MEDS ORDERED: ADENOSINE 90 MG/30 ML VIAL. IV (16:37)
[2017-02-02] MEDS: LIDOCAINE 2% 20 ML VIAL. IJ (17:00)
[2017-02-02] MEDS: ADENOSINE 90 MG in IV NORMAL SALINE 50ML 90 ML IV (17:20)
[2017-02-02] MEDS: ASPIRIN ENTERIC COATED 81 MG TABLET.DR. PO (18:10)
[2017-02-02] MEDS: POTASSIUM CHLORIDE 10 MEQ TABLET.ER. PO (18:10)
[2017-02-02] MEDS: HYDROXYCHLOROQUINE 200 MG TABLET PO ×2 (18:10→20:59)
[2017-02-02] MEDS: ALBUTEROL SULFATE 2.5 MG/3 ML NEBU. NEB (20:21)
[2017-02-02] MEDS: FAMOTIDINE 20 MG TABLET. PO (20:59)
[2017-02-02] MEDS: diphenhydrAMINE HCL 25 MG CAPSULE PO (23:21)
[2017-02-03] MEDS: IPRATRPIUM/ALBUTEROL 0.5/2.5MG 3 ML NEBU. NEB ×4 (08:24→19:23)
[2017-02-03] MEDS: ASPIRIN ENTERIC COATED 81 MG TABLET.DR. PO (09:08)
[2017-02-03] MEDS: POTASSIUM CHLORIDE 10 MEQ TABLET.ER. PO (09:09)
[2017-02-03] MEDS: HYDROXYCHLOROQUINE 200 MG TABLET PO ×2 (09:09→20:43)
[2017-02-03] MEDS: FUROSEMIDE 40 MG TABLET. PO (09:09)
[2017-02-03] MEDS: FAMOTIDINE 20 MG TABLET. PO (20:43)
[2017-02-03] MEDS: guaiFENesin DM 200MG/20MG 10 ML SYRUP PO (23:19)
[2017-02-03] MEDS: diphenhydrAMINE HCL 25 MG CAPSULE PO (23:19)
[2017-02-04 07:58] LABS: ADD MAN DIFF? NO
[2017-02-04 08:03] LABS: BASO % 1 % (0-3); EOS % 3 % (0-3); HEMATOCRIT 34.5 % (36.0-47.0); HEMOGLOBIN 10.5 g/dL (12.0-15.5); LYMPH # 1.2 x10^3/uL (1.0-4.8); LYMPH % 21 % (24-48); MEAN CORPUSCULAR HEMOGLOBIN 25 pg (25-35); MEAN CORPUSCULAR HGB CONC 31 g/dL (31-37); MEAN CORPUSCULAR VOLUME 82 fL (79-100); MONO % 14 % (0-9); NEUT % 61 % (31-73); PLATELET COUNT 154 x10^3/uL (140-400); RED BLOOD COUNT 4.21 x10^6/uL (3.50-5.40); RED CELL DISTRIBUTION WIDTH 18.8 % (11.5-14.5); WHITE BLOOD COUNT 5.6 x10^3/uL (4.0-11.0)
[2017-02-04 08:19] LABS: ANION GAP 5 (6-14); BLOOD UREA NITROGEN 14 mg/dL (7-20); CALCIUM 8.6 mg/dL (8.5-10.1); CARBON DIOXIDE 36 mmol/L (21-32); CHLORIDE 102 mmol/L (98-107); CREATININE 0.5 mg/dL (0.6-1.0); GFR 162.2; GLUCOSE 87 mg/dL (70-99); POTASSIUM 4.1 mmol/L (3.5-5.1); SODIUM 143 mmol/L (136-145)
[2017-02-04] MEDS: IPRATRPIUM/ALBUTEROL 0.5/2.5MG 3 ML NEBU. NEB ×5 (08:22→20:32)
[2017-02-04] MEDS: ASPIRIN ENTERIC COATED 81 MG TABLET.DR. PO (08:47)
[2017-02-04] MEDS: POTASSIUM CHLORIDE 10 MEQ TABLET.ER. PO (08:47)
[2017-02-04] MEDS: FUROSEMIDE 40 MG TABLET. PO (08:47)
[2017-02-04] MEDS: HYDROXYCHLOROQUINE 200 MG TABLET PO ×2 (08:47→20:37)
[2017-02-04] MEDS: FUROSEMIDE 20 MG/2 ML VIAL. IVP (11:25)
[2017-02-04] MEDS: guaiFENesin DM 200MG/20MG 10 ML SYRUP PO ×2 (11:28→23:02)
[2017-02-04] MEDS: FAMOTIDINE 20 MG TABLET. PO (20:37)
[2017-02-04] MEDS: diphenhydrAMINE HCL 25 MG CAPSULE PO (23:02)
[2017-02-05 04:37] LABS: ADD MAN DIFF? NO
[2017-02-05 04:48] LABS: BASO % 1 % (0-3); EOS % 3 % (0-3); HEMATOCRIT 33.4 % (36.0-47.0); HEMOGLOBIN 10.3 g/dL (12.0-15.5); LYMPH # 1.5 x10^3/uL (1.0-4.8); LYMPH % 23 % (24-48); MEAN CORPUSCULAR HEMOGLOBIN 25 pg (25-35); MEAN CORPUSCULAR HGB CONC 31 g/dL (31-37); MEAN CORPUSCULAR VOLUME 82 fL (79-100); MONO % 14 % (0-9); NEUT % 59 % (31-73); PLATELET COUNT 140 x10^3/uL (140-400); RED BLOOD COUNT 4.09 x10^6/uL (3.50-5.40); RED CELL DISTRIBUTION WIDTH 18.8 % (11.5-14.5); WHITE BLOOD COUNT 6.3 x10^3/uL (4.0-11.0)
[2017-02-05 05:08] LABS: ANION GAP 4 (6-14); BLOOD UREA NITROGEN 16 mg/dL (7-20); CALCIUM 8.3 mg/dL (8.5-10.1); CARBON DIOXIDE 36 mmol/L (21-32); CHLORIDE 101 mmol/L (98-107); CREATININE 0.5 mg/dL (0.6-1.0); GFR 162.2; GLUCOSE 90 mg/dL (70-99); MAGNESIUM 1.8 mg/dL (1.8-2.4); POTASSIUM 4.1 mmol/L (3.5-5.1); SODIUM 141 mmol/L (136-145)
[2017-02-05] MEDS: IPRATRPIUM/ALBUTEROL 0.5/2.5MG 3 ML NEBU. NEB ×3 (06:00→12:00)
[2017-02-05] MEDS: POTASSIUM CHLORIDE 10 MEQ TABLET.ER. PO (09:03)
[2017-02-05] MEDS: FUROSEMIDE 40 MG TABLET. PO (09:03)
[2017-02-05] MEDS: ASPIRIN ENTERIC COATED 81 MG TABLET.DR. PO (09:03)
[2017-02-05] MEDS: HYDROXYCHLOROQUINE 200 MG TABLET PO (09:03)
[2017-02-05] MEDS: guaiFENesin DM 200MG/20MG 10 ML SYRUP PO (13:19)
== END 2017-02-05 15:41 | disposition home or self-care (01) | DRG 286 ==
LOC: ER 20:18 → 2 SOUTH 21:36
PROC: 5A1935Z Respiratory Ventilation, Less than 24 Consecutive Hours (ICD-10-PCS; 2017-01-30)
PROC: 0BH17EZ Insertion of Endotracheal Airway into Trachea, Via Natural or Artificial Opening (ICD-10-PCS; 2017-01-30)
PROC: 4A023N6 Measurement of Cardiac Sampling and Pressure, Right Heart, Percutaneous Approach (ICD-10-PCS; principal; 2017-02-03)
DX: I27.81 Cor pulmonale (chronic) (principal); J96.21 Acute and chronic respiratory failure with hypoxia; I50.33 Acute on chronic diastolic (congestive) heart failure; J84.112 Idiopathic pulmonary fibrosis; I07.1 Rheumatic tricuspid insufficiency; M32.9 Systemic lupus erythematosus, unspecified; I27.29 Other secondary pulmonary hypertension; G47.33 Obstructive sleep apnea (adult) (pediatric); M19.90 Unspecified osteoarthritis, unspecified site; J45.909 Unspecified asthma, uncomplicated; Z82.49 Family history of ischemic heart disease and other diseases of the circulatory system; Z99.81 Dependence on supplemental oxygen; Z83.3 Family history of diabetes mellitus
CPT/HCPCS: 36415; 71010; 80048; 80053; 81001; 82553; 83735; 83880; 84484; 85025; 87641; 87804; 87804-59; 90686; 93005; 93451; 94640; 94760; 96374; 97162-GP; 97165-GO; 99285; 99285-25; C1769; C1773; C1892; J0153; J1644; J7613; J7620; Q0163